=== PATIENT | female | born 1930 | race Caucasian/White ===

== ENCOUNTER 2016-06-16 21:17 | Emergency (ER) | payer MEDICARE, MEDICAID ==
--- NOTE | 2016-06-16 22:54 | ER Document Report ---
ED Medical Screen (RME) - General Chief Complaint: Urinary Problem Stated Complaint: URINARY ISSUE Notes: 6-year-old female comes emergency department with 2 complaints, first complaint is decreased ability to urinate, patient seen by primary but unable to give urine sample, prescribed Macrobid but not able to fill or take it. Patient reports some chills today. Denies fever, vomiting. Second complaint is increased dyspnea on exertion, slightly worse than her baseline, patient has COPD, on 4 L. She denies any chest pain, cough, lightheadedness, abdominal pain. TRAVEL OUTSIDE OF THE [place] IN LAST 30 DAYS: No - Related Data Allergies/Adverse Reactions: levofloxacin [From Levaquin] Allergy (Intermediate, Verified 07/31/15 10:53) ITCHING, MUSCLE PAIN Past Medical History - Social History Chew tobacco use (# tins/day): No Frequency of alcohol use: None Drug Abuse: None - Past Medical History Cardiac Medical History: Denies: Hx Coronary Artery Disease, Hx Heart Attack, Hx Hypertension Pulmonary Medical History: Reports: Hx COPD Denies: Hx Asthma, Hx Bronchitis, Hx Pneumonia Neurological Medical History: Denies: Hx Cerebrovascular Accident, Hx Seizures Renal/ Medical History: Denies: Hx Peritoneal Dialysis Musculoskeltal Medical History: Reports Hx Arthritis Psychiatric Medical History: Reports: Hx Depression Past Surgical History: Reports: Hx Orthopedic Surgery - bilateral rotator cuff, Hx Tubal Ligation - Immunizations Hx Diphtheria, Pertussis, Tetanus Vaccination: Yes Physical Exam - Vital signs Vitals: Temp Pulse Resp BP Pulse Ox 98.7 F 98 20 105/67 94 06/16/16 22:35 06/16/16 22:35 06/16/16 22:35 06/16/16 22:35 06/16/16 22:35 - Respiratory Respiratory status: No respiratory distress. No: Respiratory distress, Tachypnea Breath sounds: Decreased air movement. No: Nonproductive cough, Rhonchi, Wheezing Course - Re-evaluation Re-evalutation: Patient appears slightly unwell but is in no distress, no labored breathing, no hypoxia (95% on recheck). - Vital Signs Vital signs: Temp Pulse Resp BP Pulse Ox 98.7 F 98 20 105/67 94 06/16/16 22:35 06/16/16 22:35 06/16/16 22:35 06/16/16 22:35 06/16/16 22:35
--- NOTE | 2016-06-17 02:27 | ER Document Report ---
ED General - General Chief Complaint: Urinary Problem Stated Complaint: URINARY ISSUE Notes: 86-year-old female comes to the emergency department with 2 complaints, first complaint is decreased ability to urinate, patient seen by primary but unable to give urine sample, prescribed Macrobid but not able to fill or take it. Patient reports some chills today. Denies fever, vomiting. Second complaint is increased dyspnea on exertion over the last few days, slightly worse than her baseline, patient has COPD, on 4 L. patient was started on Bactrim one week ago. Patient sees pulmonology. She denies any chest pain, cough, lightheadedness, abdominal pain. Past medical history of COPD, CAD, hypertension. TRAVEL OUTSIDE OF THE [place] IN LAST 30 DAYS: No - Related Data Allergies/Adverse Reactions: levofloxacin [From Levaquin] Allergy (Intermediate, Verified 06/17/16 04:53) ITCHING, MUSCLE PAIN Past Medical History - General Information source: Patient - Social History Smoking Status: Current Every Day Smoker Chew tobacco use (# tins/day): No Frequency of alcohol use: None Drug Abuse: None Lives with: Family Family History: Reviewed & Not Pertinent Patient has suicidal ideation: No Patient has homicidal ideation: No - Past Medical History Cardiac Medical History: Denies: Hx Coronary Artery Disease, Hx Heart Attack, Hx Hypertension Pulmonary Medical History: Reports: Hx COPD Denies: Hx Asthma, Hx Bronchitis, Hx Pneumonia Neurological Medical History: Denies: Hx Cerebrovascular Accident, Hx Seizures Renal/ Medical History: Denies: Hx Peritoneal Dialysis Musculoskeltal Medical History: Reports Hx Arthritis Psychiatric Medical History: Reports: Hx Depression Past Surgical History: Reports: Hx Orthopedic Surgery - bilateral rotator cuff, Hx Tubal Ligation - Immunizations Hx Diphtheria, Pertussis, Tetanus Vaccination: Yes Hx Pneumococcal Vaccination: 04/19/08 Review of Systems - Review of Systems Constitutional: No symptoms reported EENT: No symptoms reported Cardiovascular: See HPI Respiratory: See HPI Gastrointestinal: See HPI Genitourinary: See HPI Female Genitourinary: No symptoms reported Musculoskeletal: No symptoms reported Skin: No symptoms reported Hematologic/Lymphatic: No symptoms reported Neurological/Psychological: No symptoms reported Physical Exam - Vital signs Vitals: Temp Pulse Resp BP Pulse Ox 98.7 F 98 20 105/67 94 06/16/16 22:35 06/16/16 22:35 06/16/16 22:35 06/16/16 22:35 06/16/16 22:35 Interpretation: Normal - General General appearance: Appears well, Alert In distress: None - HEENT Head: Normocephalic, Atraumatic Eyes: Normal Pupils: PERRL - Respiratory Respiratory status: No respiratory distress, Tachypnea - Patient has very mild tachypnea at baseline Chest status: Nontender Breath sounds: Decreased air movement. No: Nonproductive cough, Wheezing Chest palpation: Normal - Cardiovascular Rhythm: Regular. No: Tachycardia Heart sounds: Normal auscultation, S1 appreciated, S2 appreciated Murmur: Yes - 04/24 systolic heard throughout - Abdominal Inspection: Normal Distension: No distension Bowel sounds: Normal Tenderness: Nontender. No: Tender, Guarding Organomegaly: No organomegaly - Back Back: Normal, Nontender. No: Tender - Extremities General upper extremity: Normal inspection, Nontender, Normal color, Normal ROM , Normal temperature General lower extremity: Normal inspection, Nontender, Normal color, Normal ROM , Normal temperature, Normal weight bearing. 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 Relative states she has not noticed any increased difficulty in breathing. Chest x-ray shows mild bronchitis, no other abnormalities. This is new compared to patient's prior. Patient not noted to be hypoxic. Patient was able to urinate, urinalysis is unremarkable, patient is on Bactrim already. Discussed increased difficulty urinating over the past couple of days , patient declines a Garcia catheter, patient states she has a urologist and states she wants to follow-up with him. Daughter agrees with this plan. Patient also has a grubber, because of mild bronchitis and respiratory complaints will increase her 10 mg daily baseline prednisone temporarily in a quick trend, advised patient to call her grubber this morning to confirm before she begins this. Patient states she is ready to leave otherwise, states she feels good and she wants to go home. Daughter is in agreement with this plan. Discussed return precautions. - Vital Signs Vital signs: Temp Pulse Resp BP Pulse Ox 98.3 F 81 18 112/58 L 99 06/17/16 04:45 06/17/16 04:45 06/17/16 04:45 06/17/16 04:45 06/17/16 04:45 - Laboratory Result Diagrams: 06/17/16 02:37 06/17/16 02:37 Laboratory results interpreted by me: 06/17/16 06/17/16 02:37 02:37 WBC 12.5 H RDW 14.4 H Carbon Dioxide 31 H Est GFR (Non-Af Amer) 50 L Glucose 137 H Discharge - Discharge Clinical Impression: Urinary symptom or sign, Bronchitis Chronic obstructive pulmonary disease Qualifiers: COPD type: unspecified COPD Qualified Code(s): J44.9 - Chronic obstructive pulmonary disease, unspecified Condition: Stable Disposition: HOME, SELF-CARE Additional Instructions: Urine does not show infection, kidney functioning is unremarkable, workup generally unremarkable other than mild bronchitis on chest x-ray. Increase prednisone as directed on the prescription, please contact your grubber to confirm this. In regards to urinary retention, please call your urologist for additional management, return to emergency department if you cannot urinate for an extended period (i.e. greater than 8-12 hours). Return to the emergency department for any other concerning symptoms including fever, abdominal pain, worsening shortness of breath, etc. Prescriptions: Prednisone [Deltasone 10 mg Tablet] 10 mg PO ASDIR PRN #21 tablet PRN Reason:
[2016-06-17 02:51] LABS: ABSOLUTE EOSINOPHILS # (AUTO) 0.4 10^3/uL (0.0-0.6); ABSOLUTE LYMPHOCYTES (AUTO) 2.9 10^3/uL (0.5-4.7); ABSOLUTE MONOCYTES (AUTO) 1.3 10^3/uL (0.1-1.4); ABSOLUTE NEUT (AUTO) 7.9 10^3/uL (1.7-8.2); BASOPHILS % (AUTO) 0.3 % (0-2); EOSINOPHILS % (AUTO) 3.1 % (0-6); HEMATOCRIT 38.6 % (36.0-47.0); HEMOGLOBIN 12.7 g/dL (12.0-15.5); HGB HCT DIFFERENCE -0.5; LYMPHOCYTES % (AUTO) 23.3 % (13-45); MEAN CORPUSCULAR HEMOGLOBIN 28.3 pg (27.0-33.4); MEAN CORPUSCULAR HGB CONC 32.9 g/dL (32.0-36.0); MEAN CORPUSCULAR VOLUME 86 fl (80-97); MONOCYTES % (AUTO) 10.3 % (3-13); RED BLOOD COUNT 4.48 10^6/uL (3.72-5.28); RED CELL DISTRIBUTION WIDTH 14.4 % (11.5-14.0); WHITE BLOOD COUNT 12.5 10^3/uL (4.0-10.5)
[2016-06-17 03:02] LABS: ALANINE AMINOTRANSFERASE 27 U/L (9-52); ALBUMIN 3.5 g/dL (3.5-5.0); ALKALINE PHOSPHATASE 86 U/L (38-126); ANION GAP 8 (5-19); ASPARTATE AMINO TRANSFERASE 34 U/L (14-36); BILIRUBIN,TOTAL 0.2 mg/dL (0.2-1.3); BLOOD UREA NITROGEN 19 mg/dL (7-20); CALCIUM 9.7 mg/dL (8.4-10.2); CARBON DIOXIDE 31 mmol/L (22-30); CHLORIDE 101 mmol/L (98-107); CREATINE KINASE 68 U/L (30-135); CREATININE RESULT 1.04 mg/dL (0.52-1.25); GLUCOSE 137 mg/dL (75-110); POTASSIUM 4.5 mmol/L (3.6-5.0); SODIUM 139.8 mmol/L (137-145); TOTAL PROTEIN 6.5 g/dL (6.3-8.2)
[2016-06-17 03:14] LABS: CREATINE KINASE MB 2.56 ng/mL (<4.55); TROPONIN I 0.018 ng/mL
[2016-06-17 03:41] LABS: APPEARANCE,URINE SLIGHTLY-CLOUDY; BILIRUBIN,URINE NEGATIVE (NEGATIVE); CALCIUM OXALATE CRYSTALS,URINE TOO NUMEROUS TO CNT /HPF; GLUCOSE, URINE NEGATIVE (NEGATIVE); KETONES,URINE NEGATIVE (NEGATIVE); LEUKOCYTE ESTERASE,URINE NEGATIVE (NEGATIVE); NITRITE,URINE NEGATIVE (NEGATIVE); PROTEIN,URINE NEGATIVE (NEGATIVE); URINE SPECIFIC GRAVITY 1.013; UROBILINOGEN,URINE NEGATIVE mg/dL (<2.0)
[2016-06-17 04:55] VITALS: BP 112/58
--- NOTE | 2016-06-17 08:23 | EKG REPORT ---
SEVERITY:- ABNORMAL ECG - SINUS RHYTHM ATRIAL PREMATURE COMPLEX CONSIDER ANTEROSEPTAL INFARCT : Confirmed by: Philipp Xavier MD 17-Jun-2016 08:22:28
== END 2016-06-17 04:50 | disposition home or self-care (01) ==
LOC: ER 21:17
DX: R39.89 Other symptoms and signs involving the genitourinary system (principal); J44.9 Chronic obstructive pulmonary disease, unspecified; R68.83 Chills (without fever); R06.09 Other forms of dyspnea; R01.1 Cardiac murmur, unspecified; I25.10 Atherosclerotic heart disease of native coronary artery without angina pectoris; I10 Essential (primary) hypertension; I25.2 Old myocardial infarction; F17.200 Nicotine dependence, unspecified, uncomplicated; Z88.1 Allergy status to other antibiotic agents; Z79.52 Long term (current) use of systemic steroids
CPT/HCPCS: 36415; 71020; 80053; 81001; 82550; 82553; 84484; 85025; 87040; 87086; 93005; 93010; 99284

== ENCOUNTER → 2016-06-25 | Outpatient (CLI) | payer MEDICARE, MEDICAID | LOC: WI 08:16 | PROVIDERS: ATTEND Nurse Practitioner | DX: R10.9 Unspecified abdominal pain (principal); K76.0 Fatty (change of) liver, not elsewhere classified | CPT/HCPCS: 76700 ==

== ENCOUNTER → 2016-09-23 | Outpatient (CLI) | payer MEDICARE, MEDICAID ==
--- NOTE | 2016-09-23 13:32 | RADIOLOGY REPORT (SQ) ---
EXAM DESCRIPTION: CHEST PA/LATERAL COMPLETED DATE/TIME: 09/23/2016 1:22 pm REASON FOR STUDY: COUGH COMPARISON: 06/16/2016 EXAM PARAMETERS: NUMBER OF VIEWS: two views TECHNIQUE: Digital Frontal and Lateral radiographic views of the chest acquired. RADIATION DOSE: NA LIMITATIONS: none FINDINGS: LUNGS AND PLEURA: Is tissue markings are prominent but stable from prior study this most l ikely represents chronic interstitial lung disease no effusions or consolidation. MEDIASTINUM AND HILAR STRUCTURES: No masses or contour abnormalities. HEART AND VASCULAR STRUCTURES: Stable in appearance. BONES: No acute findings. HARDWARE: None in the chest. OTHER: No other significant finding. IMPRESSION: Chronic bilateral interstitial changes stable from prior exam. No acute findings. TECHNICAL DOCUMENTATION: JOB ID: [id number] [employer]- All Rights Reserved
== END ==
LOC: OD 12:48
PROVIDERS: ATTEND Nurse Practitioner
DX: R05 Cough (principal)
CPT/HCPCS: 71020

== ENCOUNTER → 2016-11-16 | Outpatient (CLI) | payer MEDICARE, MEDICAID ==
--- NOTE | 2016-11-18 08:18 | XCELERA REPORT ---
[address] [address] Lower Extremity Arterial Evaluation Name: SERGEY RIVERA Age: 86 yrs Gender: Female : 1930 Patient Status: Outpatient Patient Location: Study Date: 11/16/2016 01:27 PM Procedure: A color flow and duplex scan of the lower extremity arteries was performed bilaterally with velocity and waveform anaylsis. Reason For Study: PARESTHESIA R20.2 Ordering Physician: LOUIS VEGA Performed By: Garry Merrill Measurements and Calculations Right Left PERSONAL DEVELOPMENT MENTOR PSV 107.5 94.9 cm/sec Prox PFA PSV -93.6 -65.8 cm/sec Dist SFA PSV -132.8 -94.9 cm/sec Dist Pop A PSV 109.2 66.3 cm/sec Dist RADHA PSV 171.7 75.8 cm/sec Mid ROSIN BARREL FILLER PSV 34.0 cm/sec Dist ROSIN BARREL FILLER PSV 51.3 cm/sec Ruddy Pedis PSV 105.6 89.4 cm/sec Right Side Arterial Evaluation Normal velocity and triphasic waveforms noted from the Common Femoral artery to the Anterior Tibial artery . Biphasic with reduced velocity in the Posterior Tibial artery. 20-40 % stenosis at the Posterior Tibial artery. Ankle Brachial index is 0.94. . Left Side Arterial Evaluation Normal velocity and triphasic waveforms noted from the Common Femoral artery to the Anterior Tibial artery . Biphasic with reduced velocity in the Posterior Tibial artery. 20-40 % stenosis at the Posterior Tibial artery. Ankle Brachial index is 0.99. . Interpretation Summary Mild hemodynamically significant lesions in the bilateral lower extremities, on duplex imaging, at rest. : LOUIS VEGA > Petros Estrella
== END ==
LOC: SP 13:08
PROVIDERS: ATTEND Nurse Practitioner
DX: R20.2 Paresthesia of skin (principal)
CPT/HCPCS: 93925

== ENCOUNTER → 2016-11-23 | Outpatient (CLI) | payer MEDICARE, MEDICAID ==
--- NOTE | 2016-11-23 17:03 | RADIOLOGY REPORT (SQ) ---
EXAM DESCRIPTION: CHEST PA/LATERAL COMPLETED DATE/TIME: 11/23/2016 4:48 pm REASON FOR STUDY: COUGH COMPARISON: 09/23/2016 EXAM PARAMETERS: NUMBER OF VIEWS: two views TECHNIQUE: Digital Frontal and Lateral radiographic views of the chest acquired. RADIATION DOSE: NA LIMITATIONS: none FINDINGS: LUNGS AND PLEURA: Chronic interstitial lung changes are present. There is no superimposed infiltrate. There is no pleural effusion. No mass is seen there is no significant interval MEDIASTINUM AND HILAR STRUCTURES: No masses or contour abnormalities. HEART AND VASCULAR STRUCTURES: Heart normal size. No evidence for failure. BONES: No acute findings. HARDWARE: None in the chest. OTHER: No other significant finding. IMPRESSION: Chronic lung changes with no acute cardiopulmonary disease. TECHNICAL DOCUMENTATION: JOB ID: [id number] [employer]- All Rights Reserved
[2016-11-23 17:51] LABS: APPEARANCE,URINE CLOUDY; BILIRUBIN,URINE NEGATIVE (NEGATIVE); GLUCOSE, URINE 50 mg/dL (NEGATIVE); KETONES,URINE NEGATIVE (NEGATIVE); LEUKOCYTE ESTERASE,URINE TRACE (NEGATIVE); NITRITE,URINE NEGATIVE (NEGATIVE); PROTEIN,URINE NEGATIVE (NEGATIVE); URINE SPECIFIC GRAVITY 1.016; UROBILINOGEN,URINE NEGATIVE mg/dL (<2.0)
[2016-11-23 17:54] LABS: ABSOLUTE LYMPHOCYTES (AUTO) 0.8 10^3/uL (0.5-4.7); ABSOLUTE MONOCYTES (AUTO) 0.1 10^3/uL (0.1-1.4); ABSOLUTE NEUT (AUTO) 11.2 10^3/uL (1.7-8.2); BASOPHILS % (AUTO) 0.2 % (0-2); EOSINOPHILS % (AUTO) 0.1 % (0-6); HEMATOCRIT 39.5 % (36.0-47.0); HEMOGLOBIN 13.1 g/dL (12.0-15.5); HGB HCT DIFFERENCE -0.2; LYMPHOCYTES % (AUTO) 6.9 % (13-45); MEAN CORPUSCULAR HEMOGLOBIN 28.5 pg (27.0-33.4); MEAN CORPUSCULAR HGB CONC 33.1 g/dL (32.0-36.0); MEAN CORPUSCULAR VOLUME 86 fl (80-97); MONOCYTES % (AUTO) 0.8 % (3-13); RED BLOOD COUNT 4.59 10^6/uL (3.72-5.28); RED CELL DISTRIBUTION WIDTH 14.6 % (11.5-14.0); WHITE BLOOD COUNT 12.2 10^3/uL (4.0-10.5)
== END ==
LOC: OD 16:09
PROVIDERS: ATTEND Nurse Practitioner
DX: R05 Cough (principal); R32 Unspecified urinary incontinence
CPT/HCPCS: 36415; 71020; 81001; 85025; 87086

== ENCOUNTER 2016-12-29 11:01 | Inpatient (IN) | payer MEDICARE, MEDICAID ==
[2016-12-29] MEDS ORDERED: METHYLPREDNISOLONE INJ 125 MG/2 ML SDV IV ONE (11:38)
--- NOTE | 2016-12-29 11:46 | ER Document Report ---
ED Respiratory Problem - General Chief Complaint: Breathing Difficulty Stated Complaint: BREATHING ISSUES Time Seen by Provider: 12/29/16 11:37 Notes: Patient is an 86-year-old female with past medical history of bronchiectasis and COPD on 4 L nasal cannula is at baseline at home who presents today with the onset yesterday of some increased wheezing. Patient states some chronic nasal congestion. She states some intermittent phlegm production. Patient is on 10 mg of prednisone daily as well as tobramycin followed by the core shaper Dr. Childers. Patient states she had some chest "burning" 2 days ago but no discomfort since that time. She denies any calf pain or leg swelling. Patient supposedly had a positive Pseudomonas sputum culture around 1 week ago prior to starting the tobramycin. Patient had been on the tobramycin for around 1 month prior. TRAVEL OUTSIDE OF THE [place] IN LAST 30 DAYS: No - HPI Patient complains to provider of: COPD, Short of breath Onset: Other - See above Duration: Continuous Initiating Event: Other - See above Quality of pain: Other - See above Severity: Moderate Pain Level: Denies Context: Other - See above Short of Breath: Moderate Cough: Productive Sputum amount: Scant Sputum color: Yellow At home treatment: Bronchodilators, Oral steroids Associated symptoms: Other - See above Similar symptoms previously: Yes Recently seen / treated by doctor: Yes - Related Data Allergies/Adverse Reactions: levofloxacin [From Levaquin] Allergy (Intermediate, Verified 12/29/16 11:06) ITCHING, MUSCLE PAIN Past Medical History - General Information source: Patient - Social History Smoking Status: Unknown if Ever Smoked Cigarette use (# per day): No Chew tobacco use (# tins/day): No Smoking Education Provided: No Frequency of alcohol use: None Family History: Reviewed & Not Pertinent - Past Medical History Cardiac Medical History: Denies: Hx Coronary Artery Disease, Hx Heart Attack, Hx Hypertension Pulmonary Medical History: Reports: Hx COPD Denies: Hx Asthma, Hx Bronchitis, Hx Pneumonia Neurological Medical History: Denies: Hx Cerebrovascular Accident, Hx Seizures Renal/ Medical History: Denies: Hx Peritoneal Dialysis Musculoskeltal Medical History: Reports Hx Arthritis Psychiatric Medical History: Reports: Hx Depression Past Surgical History: Reports: Hx Orthopedic Surgery - bilateral rotator cuff, Hx Tubal Ligation - Immunizations Hx Diphtheria, Pertussis, Tetanus Vaccination: Yes Hx Pneumococcal Vaccination: 04/19/08 Review of Systems - Review of Systems Constitutional: denies: Fever EENT: Nose congestion, Nose discharge. denies: Eye discharge Cardiovascular: denies: Palpitations Respiratory: Short of breath, Wheezing. denies: Hemoptysis Gastrointestinal: denies: Vomiting Genitourinary: denies: Dysuria Musculoskeletal: denies: Leg swelling Skin: Other - no hives. denies: Rash Neurological/Psychological: Other - no slurred speech -: Yes All other systems reviewed and negative Physical Exam - Vital signs Vitals: Temp Pulse Resp BP Pulse Ox 97.8 F 102 H 26 H 150/74 H 89 L 12/29/16 11:04 12/29/16 11:04 12/29/16 11:04 12/29/16 11:04 12/29/16 11:04 Notes: Reviewed vital signs and nursing note as charted by RN. CONSTITUTIONAL: Alert and oriented and responds appropriately to questions. Well -appearing; well-nourished HEAD: Normocephalic; atraumatic EYES: PERRL ENT: Normal nose; no rhinorrhea; moist mucous membranes; pharynx without lesions noted NECK: Supple without meningismus; non-tender CARD: Regular rate and rhythm; no murmurs, no clicks, no rubs, no gallops; symmetric distal pulses RESP: Normal chest excursion; mild tachypnea; minimal end expiratory wheezing bilaterally without any obvious rales or rhonchi ABD/GI: Normal bowel sounds; non-distended; soft, non-tender BACK: The back appears normal and is non-tender to palpation EXT: Normal ROM in all joints; non-tender to palpation; no cyanosis, no effusions, no edema SKIN: Normal color for age and race; warm; dry; good turgor; capillary refill < 2 seconds; no acute lesions noted NEURO: Moves all extremities equally; Motor and sensory function intact PSYCH: The patient's mood and manner are appropriate. Grooming and personal hygiene are appropriate. Course - Re-evaluation Re-evalutation: 12/29/16 11:53 Given the history and physical examination I will order cardiac panel, EKG, BNP , and reassess the patient. Patient is speaking complete sentences. She does have some mild end expiratory wheezing. I will provide a dose of Solu-Medrol intravenously as well as provide to lola jacome and reassess the patient. 12/29/16 12:42 Wheezing slightly improved. Patient still denies any chest pain. BNP and troponin as recorded. X-ray of the chest show some COPD like changes with no obvious focal consolidation. Given the positive Pseudomonas sputum culture, I will treat the patient with Levaquin and cefepime as an initial dose here in the emergency department. Patient states some mild itching secondary to Levaquin. She states she can tolerate this medication with Benadryl. Patient will be admitted to the hospitalist for further evaluation and treatment. - Vital Signs Vital signs: Temp Pulse Resp BP Pulse Ox 97.8 F 102 H 25 H 120/73 98 12/29/16 11:04 12/29/16 11:04 12/29/16 12:01 12/29/16 12:01 12/29/16 12:01 - Laboratory Result Diagrams: 12/29/16 11:25 12/29/16 11:25 Laboratory results interpreted by me: 12/29/16 12/29/16 11:25 11:25 WBC 10.6 H RDW 15.0 H Carbon Dioxide 31 H Glucose 257 H Discharge - Discharge Clinical Impression: Shortness of breath, Wheezing Condition: Fair Disposition: ADMITTED INPATIENT Admitting Provider: Hospitalist Unit Admitted: [facility]
[2016-12-29 11:55] LABS: ABSOLUTE EOSINOPHILS # (AUTO) 0.2 10^3/uL (0.0-0.6); ABSOLUTE LYMPHOCYTES (AUTO) 1.6 10^3/uL (0.5-4.7); ABSOLUTE MONOCYTES (AUTO) 1.1 10^3/uL (0.1-1.4); ABSOLUTE NEUT (AUTO) 7.7 10^3/uL (1.7-8.2); BASOPHILS % (AUTO) 0.4 % (0-2); EOSINOPHILS % (AUTO) 1.9 % (0-6); HEMOGLOBIN 13.2 g/dL (12.0-15.5); HGB HCT DIFFERENCE -0.4; LYMPHOCYTES % (AUTO) 14.9 % (13-45); MEAN CORPUSCULAR HEMOGLOBIN 29.1 pg (27.0-33.4); MEAN CORPUSCULAR HGB CONC 33.1 g/dL (32.0-36.0); MEAN CORPUSCULAR VOLUME 88 fl (80-97); MONOCYTES % (AUTO) 10.3 % (3-13); RED BLOOD COUNT 4.56 10^6/uL (3.72-5.28); SEGMENTED NEUTROPHILS % (AUTO) 72.5 % (42-78); WHITE BLOOD COUNT 10.6 10^3/uL (4.0-10.5)
[2016-12-29] MEDS: IPRATROPIUM/ALBUTEROL 0.5-2.5 MG/3 ML AMPUL NEB SCH ×4 (11:58→21:13)
[2016-12-29 12:07] LABS: ANION GAP 12 (5-19); BLOOD UREA NITROGEN 12 mg/dL (7-20); CARBON DIOXIDE 31 mmol/L (22-30); CHLORIDE 98 mmol/L (98-107); CREATININE RESULT 0.78 mg/dL (0.52-1.25); GLUCOSE 257 mg/dL (75-110); POTASSIUM 4.5 mmol/L (3.6-5.0); SODIUM 140.5 mmol/L (137-145)
[2016-12-29 12:19] LABS: TROPONIN I 0.023 ng/mL
[2016-12-29] MEDS ORDERED: CEFEPIME 2 GM/D5W RTU 2 GM/50 ML RTUPB IV ONE (12:41)
[2016-12-29] MEDS ORDERED: LEVOFLOXACIN 750 MG/D5W RTU 750 MG/150 ML RTUPB IV ONE (12:41)
[2016-12-29] MEDS ORDERED: DIPHENHYDRAMINE HCL 25 MG CAPSULE PO ONE (12:42)
--- NOTE | 2016-12-29 13:07 | RADIOLOGY REPORT (SQ) ---
EXAM DESCRIPTION: CHEST PA/LAT COMPLETED DATE/TIME: 12/29/2016 11:55 am REASON FOR STUDY: 16, wheezing with sob COMPARISON: CT chest 08/28/2015 Chest films 09/25/2013, 08/26/2015, 02/17/2016, 06/16/2016 EXAM PARAMETERS: NUMBER OF VIEWS: two views TECHNIQUE: Digital Frontal and Lateral radiographic views of the chest acquired. RADIATION DOSE: NA LIMITATIONS: none FINDINGS: LUNGS AND PLEURA: Lungs are hyperinflated and hyperlucent from obstructive disease. There is bilateral bronchiectasis, with reticulonodular chronic infiltrates bilaterally. Findings are wor risome for ANABEL or chronic fungal disease. No dense consolidation worrisome for acute pneumonia. No pleural effusions. No pneumothorax. MEDIASTINUM AND HILAR STRUCTURES: No masses or contour abnormalities. HEART AND VASCULAR STRUCTURES: Heart normal size. No evidence for failure. BONES: No acute findings. HARDWARE: None in the chest. OTHER: No other significant finding. IMPRESSION: Obstructive lung disease. Chronic bronchiectasis and reticulonodular infiltrates worrisome for ANABEL or fungal disease TECHNICAL DOCUMENTATION: JOB ID: [id number]- All Rights Reserved
[2016-12-29] MEDS ORDERED: NORMAL SALINE 1000 ML 1,000 ML IV PRN (13:41)
[2016-12-29] MEDS ORDERED: ACETAMINOPHEN 325 MG TABLET PO PRN (13:41)
[2016-12-29] MEDS ORDERED: GUAIFENESIN SYRP 200 MG/10 ML UDC PO PRN (13:41)
[2016-12-29] MEDS ORDERED: LEVALBUTEROL HCL NEB 1.25 MG/3 ML AMPUL NEB PRN (13:41)
[2016-12-29] MEDS ORDERED: PHARMACY COMMUNICATION ORDER MC NR (14:00)
[2016-12-29] MEDS ORDERED: ENOXAPARIN SODIUM INJ 40 MG/0.4 ML DISP.SYRIN SUBCUT ONE (15:00)
[2016-12-29] MEDS: METHYLPREDNISOLONE INJ 125 MG/2 ML SDV IV SCH ×2 (18:15→23:11)
[2016-12-29] MEDS ORDERED: TOBRAMYCIN SULFATE INJ 80 MG/2 ML VIAL NEB SCH (20:00)
--- NOTE | 2016-12-29 20:53 | HISTORY AND PHYSICAL E ---
History and Physical NAME: SERGEY RIVERA : 1930 AGE: 86Y ADMITTED: 12/29/2016 ROOM: 326 PRIMARY CARE PHYSICIAN: Nneka Posada LABOR RELATIONS OFFICER: Moreno Childers M.D. CHIEF COMPLAINT: Shortness of breath. HISTORY OF PRESENT ILLNESS: The patient is an 86-year-old female with a known history of O2 dependent COPD with a long history of bronchiectasis and recurrent pseudomonal infections who recently was stopped on inhaled tobramycin. She reports since that time she has had an increase in cough and shortness of breath and began having wheezing beginning last night. She reports that her saturation will often be in the low 80s even on oxygen. She does report increased dyspnea on exertion but denies any swelling. She reports purulent yellow-green sputum but denies any overt fever or chills. The patient presents to the emergency department with increased shortness of breath and is referred to the hospitalist service for [id number]-[id number] hypoxemic respiratory failure and likely Pseudomonal pneumonia. PAST MEDICAL HISTORY: 1. COPD. 2. Bronchiectasis. 3. Depression. PAST SURGICAL HISTORY: 1. Rotator cuff surgery times 2. 2. Bilateral tubal ligation. SOCIAL HISTORY: The patient does not smoke. She drinks maybe twice yearly and does not use illicit drugs. She lives with her daughter. FAMILY HISTORY: Significant for alcohol abuse, old age, diabetes mellitus in her mother and sister and dementia. ALLERGIES: LEVAQUIN which causes a facial rash and muscle pain. HOME MEDICATIONS: 1. Inhaled tobramycin. 2. Singulair. 3. Breo. 4. Dexilant. 5. Spiriva. 6. Effexor. CODE STATUS: DNR. Her daughter, Lissy Laguerre, is her surrogate decision maker. REVIEW OF SYSTEMS: CONSTITUTIONAL: The patient denies fever or chills, weight loss, weight gain, anorexia. HEENT: Denies visual disturbance, headache, hearing loss. RESPIRATORY: Admits to dyspnea and cough, denies hemoptysis and pleurisy. CARDIAC: Denies chest pain, PND, orthopnea or edema. ABDOMEN: Denies abdominal pain, nausea, vomiting, diarrhea, constipation, hematemesis, melena or hematochezia. GENITOURINARY: Denies dysuria, urgency, frequency or hematuria. SKIN: Denies rash or wounds. MUSCULOSKELETAL: Denies joint pain or swelling. NEUROLOGIC: Denies weakness, numbness, dizziness, dysphasia, dysarthria or ataxia. ENDOCRINE: Denies polydipsia, polyuria, hot or cold intolerance. PSYCHIATRIC: Denies depression, anxiety, hallucinations or delusions. HEMATOLOGIC: Admits to easy bleeding and bruising. PHYSICAL EXAMINATION: VITAL SIGNS: Temperature is 97.8. Pulse of 102. Blood pressure of 150/74. Respiratory rate of 26. Saturation of 89% on 4 L nasal cannula. GENERAL: The patient is a chronically ill-appearing elderly female who is in moderate respiratory distress. HEENT: She is normocephalic. She has no icterus. Her conjunctivae are clear. Her extraocular eye movements are intact. Her pupils are equal, round, and reactive to light and accommodation. Her mucous membranes is slightly dry. NECK: Supple. There is no thyromegaly and no lymphadenopathy. Trachea midline. RESPIRATORY: Reveals wheezes and rhonchi bilaterally. CARDIOVASCULAR: Regular rate and rhythm without appreciable rub or gallop. ABDOMEN: Protuberant but soft, nontender to palpation, nondistended with active bowel sounds. She has a negative Bartholomew sign. RECTAL: Deferred. GENITOURINARY: Deferred. EXTREMITIES: Reveal no edema. She has no cyanosis. She has mild clubbing. MUSCULOSKELETAL: Reveals no joint swelling or deformity. VASCULATURE: Reveals normal peripheral pulses. NEUROLOGIC: She is alert and oriented to person, place and time. Her speech is normal. Her cranial nerves are grossly intact. Strength is 5/5 in all extremities. Tactile sensation is present in all extremities. SKIN: Reveals no rashes, wounds or worrisome skin lesions. PSYCHIATRIC: Normal mood and affect. LABORATORY VALUES: White count of 10.6, hemoglobin 13.2, hematocrit 40 and platelets of 207. Sodium 140, potassium 4.5, chloride 98, CO2 of 31, BUN of 12, creatinine 0.78, glucose of 257, troponin of 0.023. Pro-BNP of 101, calcium of 9. The patient's outpatient sputum culture reveals Pseudomonas which is pansensitive. Chest x-ray reveals obstructive lung disease with bronchiectasis and reticulonodular infiltrates worrisome for ANABEL or fungal disease. IMPRESSION: This is an 86-year-old female with: 1. Ojdsy-ip-sqoqyse hypoxemic respiratory failure secondary to COPD exacerbation. 2. COPD exacerbation. 3. Pseudomonal pneumonia. 4. GERD. 5. Depression. 6. Impaired fasting glucose. 7. SIRS criteria. 8. Acute COPD exacerbation and flare of bronchiectasis likely precipitated with underlying pseudomonas. PLAN: 1. Will place the patient on cefepime and inhaled tobramycin. The patient does report an allergy to Levaquin. Will place the patient on Solumedrol 125 IV q.6 h. and schedule nebulized treatments. 2. For her impaired fasting glucose, we will obtain a hemoglobin A1c. 3. For patient's unusual presentation of her pneumonic process, we will also obtain fungal as well as AFB cultures with concern for MAC or fungal infection given the insidious onset of this. 4. For her code status, she is a DNR. Total time spent with the patient including physical examination, coordination of care and discussion with patient and family was 45 minutes of time. DICTATING PHYSICIAN: CAROL REYES M.D. [id number] PHY#: [id number] ID: [id number] JOB#: [id number] ACCT: [id number] cc:CAROL REYES M.D., [facility]
[2016-12-29] MEDS: TOBRAMYCIN SULFATE NEB 40 MG/ML 30 ML NEB SCH (21:14)
[2016-12-29] MEDS: GUAIFENESIN 600 MG TABLET.SA PO SCH (22:07)
[2016-12-29] MEDS: FAMOTIDINE 20 MG TABLET PO SCH (22:08)
[2016-12-30 05:04] LABS: HEMATOCRIT 38.7 % (36.0-47.0); HEMOGLOBIN 12.5 g/dL (12.0-15.5); HGB HCT DIFFERENCE -1.2; MEAN CORPUSCULAR HEMOGLOBIN 28.4 pg (27.0-33.4); MEAN CORPUSCULAR HGB CONC 32.4 g/dL (32.0-36.0); MEAN CORPUSCULAR VOLUME 88 fl (80-97); RED BLOOD COUNT 4.41 10^6/uL (3.72-5.28); RED CELL DISTRIBUTION WIDTH 14.8 % (11.5-14.0); WHITE BLOOD COUNT 13.9 10^3/uL (4.0-10.5)
[2016-12-30] MEDS: METHYLPREDNISOLONE INJ 125 MG/2 ML SDV IV SCH ×3 (05:12→21:45)
[2016-12-30 05:18] LABS: ALANINE AMINOTRANSFERASE 31 U/L (9-52); ALBUMIN 3.7 g/dL (3.5-5.0); ALKALINE PHOSPHATASE 87 U/L (38-126); ANION GAP 11 (5-19); ASPARTATE AMINO TRANSFERASE 27 U/L (14-36); BILIRUBIN,DIRECT 0.3 mg/dL (0.0-0.4); BILIRUBIN,TOTAL 0.4 mg/dL (0.2-1.3); BLOOD UREA NITROGEN 16 mg/dL (7-20); CALCIUM 9.6 mg/dL (8.4-10.2); CARBON DIOXIDE 29 mmol/L (22-30); CHLORIDE 99 mmol/L (98-107); CREATININE RESULT 0.75 mg/dL (0.52-1.25); GLUCOSE 268 mg/dL (75-110); POTASSIUM 4.4 mmol/L (3.6-5.0); SODIUM 138.8 mmol/L (137-145); TOTAL PROTEIN 6.7 g/dL (6.3-8.2)
[2016-12-30] MEDS: IPRATROPIUM/ALBUTEROL 0.5-2.5 MG/3 ML AMPUL NEB SCH ×4 (08:48→20:11)
[2016-12-30] MEDS: TOBRAMYCIN SULFATE NEB 40 MG/ML 30 ML NEB SCH ×2 (08:49→20:11)
[2016-12-30] MEDS ORDERED: (PENDING PHARMACY ID) (Dexlansoprazole [Dexilant 30 Mg Capsule] 30 MG) PO SCH (10:00)
[2016-12-30] MEDS ORDERED: (PENDING PHARMACY ID) (Fluticasone/Vilanterol [Breo Ellipta 100-25 Mcg Inh] 1 PUFF) IH SCH (10:00)
[2016-12-30] MEDS ORDERED: LEVOFLOXACIN 750 MG/D5W RTU 150 ML IV SCH (10:00)
--- NOTE | 2016-12-30 11:05 | RADIOLOGY REPORT (SQ) ---
EXAM DESCRIPTION: PICC INSERTION; FLUORO/CV PLACEMENT; U/S GUIDE FOR VASCULAR ACCESS COMPLETED DATE/TIME: 12/30/2016 10:54 am REASON FOR STUDY: need for iv abx; IV ACCESS COMPARISON: Two-view chest 12/29/2016 FLUOROSCOPY TIME: 11 seconds 1 ultrasound and 1 digital chest images saved to PACS. TECHNIQUE: Fluoroscopic and ultrasound guided PICC placement. LIMITATIONS: None. PROCEDURE: After written consent and assessment were obtained, the patient was brought into the fluo roscopy room and place supine on the table. Ultrasound was used on the patient's left arm for PICC a ccess. The left arm was prepped and draped in a sterile fashion along with the ultrasound probe. The entry site was anesthetized with 1% lidocaine. A 21 gauge 7 cm needle was advanced through the skin a nd into the basilic vein under live ultrasound guidance. An ultrasound image was saved to PACS confi rming access site. A .018 guide wire was then inserted through the needle and into the venous system . The needle was the removed and an 11 blade scalpel was used to make a 1cm skin incision. A 5 fr pe el-away sheath was advanced over the wire and into the venous system. A measurement was then made usi ng the existing wire and live fluoroscopic guidance. The wire was then removed and the trimmed. The P ICC was advanced through the peel-away sheath and into the venous system. The peel-away sheath was re moved and the catheter was adhered to the patients arm with a stat lock. The catheter was then aspira kunal and flushed and a sterile bandage was placed over the access site. A fluoroscopic spot image was saved to PACS confirming the catheter tip within the superior vena cava. IMPRESSION: SUCCESSFUL PLACEMENT OF A 5 FR DUAL LUMEN 44 CM PICC IN THE LEFT BASILIC VEIN. COMMENT: Patient medication list reviewed: Yes- Quality ID# [id number]:Eligible professional attests to doc umenting in the medical record they obtained, updated, or reviewed the patient's current medications. . Quality ID 145: Final reports for procedures using fluoroscopy that document radiation exposure simone morgan, or exposure time and number of fluorographic images (if radiation exposure indices are not avail able) Quality ID #[id number]: The patient was prepped and draped using maximum sterile barrier technique including cap, mask, sterile gown, sterile gloves, a large sterile sheet, hand hygiene, and 2% Chlorhexidine fo r cutaneous antisepsis. When ultrasound is used, sterile ultrasound techniques are followed requiring sterile gel and sterile probes. TECHNICAL DOCUMENTATION: JOB ID: [id number] [employer]- All Rights Reserved
[2016-12-30] MEDS ORDERED: HALOPERIDOL 5 MG TABLET PO PRN (11:23)
[2016-12-30] MEDS ORDERED: HALOPERIDOL LACTATE INJ 5 MG/1 ML VIAL IV PRN (11:23)
[2016-12-30] MEDS: ENOXAPARIN SODIUM INJ 40 MG/0.4 ML DISP.SYRIN SUBCUT SCH (11:27)
[2016-12-30] MEDS: GUAIFENESIN 600 MG TABLET.SA PO SCH ×2 (11:32→21:46)
[2016-12-30] MEDS: VENLAFAXINE HCL 75 MG CAP.SR.24H PO SCH (11:32)
[2016-12-30] MEDS: LANSOPRAZOLE 15 MG TAB.RAP.DR PO SCH (11:32)
[2016-12-30] MEDS: FAMOTIDINE 20 MG TABLET PO SCH ×2 (11:32→21:46)
[2016-12-30] MEDS ORDERED: HALOPERIDOL LACTATE INJ 5 MG/1 ML VIAL ONE (11:34)
[2016-12-30] MEDS ORDERED: LORAZEPAM INJ 2 MG/1 ML VIAL IV ONE (12:30)
[2016-12-30] MEDS: CEFEPIME 2 GM/D5W RTU 2 GM/50 ML RTUPB IV SCH (12:43)
--- NOTE | 2016-12-30 13:16 | Physician Advisory Note ---
Physician Advisor ProgressNote .: Pursuant to the plan for [facility], I have reviewed the medical record for this patient. Physician Advisor Statement: Nice documentation of Pseudomonal PNA, Ac on chr hypoxemic Resp Failure - pt usually on 4L O2 at home, initial O2 sat here 89% on 5L O2, with increased SOB & LANE, tachypnea, tachycardia, "moderate resp distress" in ED. Please document: 1. "ruled out for sepsis" - and avoid documenting dx of "(+) SIRS criteria". "SIRS criteria" is not a dx. It is a finding that increases the chances of that patient potentially having sepsis clinically. Stating "(+)SIRS criteria" is like waving a flag to coders saying "Please send me more queries! I like them!" (And it automatically leads to headaches for coders, queries for doctors, delays in coding & billing, and worsened "accounts receivable" days for hospital HIM.) If the pt meets SIRS criteria in the setting of infxn - & tachycardia/tachypnea alone are not sufficient - then the attending must state whether or not they think: a. the patient was clinically septic due to __, at time of admission, or b. developed "sepsis due to ___" later in hospital course, or c. sepsis was considered but ruled out or felt to be unlikely. These days, even stating "sepsis, POA, due to __" outright needs explicit documentation of findings used to support the dx, as payers are looking for excuses to deny sepsis was present. Defense is the best offense! Be explicit about what you think!! Thanks! CK
[2016-12-30] MEDS ORDERED: METHYLPREDNISOLONE INJ 125 MG/2 ML SDV IV SCH (14:00)
[2016-12-30] MEDS ORDERED: NORMAL SALINE 10 ML SDV (AFTER EACH USE) IV PRN (14:41)
--- NOTE | 2016-12-30 17:51 | PDOC PROGRESS REPORT ---
Subjective Progress Note for:: 12/30/16 Subjective:: Patient is quite anxious today. She apparently had quite a bit of anxiety and confusion overnight. Patient does not recall me from yesterday. She reports her breathing is better. Daughter is present at bedside. Patient denies chest pain, abdominal pain, nausea, vomiting, fevers, chills, diarrhea, constipation, headache, new onset weakness. Physical Exam Vital Signs: Temp Pulse Resp BP Pulse Ox 98.5 F 93 19 137/75 H 96 12/30/16 07:11 12/30/16 07:11 12/30/16 07:11 12/30/16 07:11 12/30/16 07:11 Intake & Output 12/29/16 12/30/16 12/31/16 06:59 06:59 06:59 Intake Total 2150 Balance 2150 Weight 82.1 kg Exam: General: Awake alert and oriented x1, mild respiratory distress HEENT: AT/NC, PERRL, EOMI, oropharynx is moist, pink, no scleral icterus, no conjunctival injection Neck: No JVD, trachea midline Chest: Pursed lip breathing, mild retractions, tachypnea, clear to auscultation bilaterally, no wheezes rhonchi or rales; prolonged expiratory phase CV: Regular rate and rhythm, normal S1 and S2, no rub or gallop Abdomen: Soft, nontender to palpation, nondistended, active bowel sounds; no rebound, rigidity, or guarding Extremities: No cyanosis, +clubbing, no edema Neuro: Cranial nerves II through XII are grossly intact without focal deficits; awake alert and oriented x1 Psych: Anxious with increased psychomotor agitation Results Laboratory Results: 12/30/16 04:49 12/30/16 04:49 12/30/16 12/30/16 04:49 04:49 WBC 13.9 H RBC 4.41 Hgb 12.5 Hct 38.7 MCV 88 MCH 28.4 MCHC 32.4 RDW 14.8 H Plt Count 195 Sodium 138.8 Potassium 4.4 Chloride 99 Carbon Dioxide 29 Anion Gap 11 BUN 16 Creatinine 0.75 Est GFR ( Amer) > 60 Est GFR (Non-Af Amer) > 60 Glucose 268 H Calcium 9.6 Total Bilirubin 0.4 AST 27 ALT 31 Alkaline Phosphatase 87 Total Protein 6.7 Albumin 3.7 Impressions: Chest X-Ray 12/29/16 11:37 IMPRESSION: Obstructive lung disease. Chronic bronchiectasis and reticulonodular infiltrates worrisome for ANABEL or fungal disease Assessment & Plan - Diagnosis (1) Sepsis Qualifiers: Sepsis type: Pseudomonas Qualified Code(s): A41.52 - Sepsis due to Pseudomonas Is this a current diagnosis for this admission?: Yes Plan: Present on admission secondary to pseudomonal pneumonia. Criteria met with tachypnea, hypoxia, and known infection. Currently, patient is encephalopathic. (2) Pseudomonal pneumonia Qualifiers: Laterality: unspecified laterality Lung location: unspecified part of lung Qualified Code(s): J15.1 - Pneumonia due to Pseudomonas Is this a current diagnosis for this admission?: Yes Plan: Patient has outpatient culture that is positive for Pseudomonas. Have placed PICC line and plan to give patient 14 days of cefepime. Patient is allergic to Levaquin. Continue inhaled tobramycin. Scheduled nebulized treatments. (3) Acute on chronic respiratory failure with hypoxemia Is this a current diagnosis for this admission?: Yes Plan: Continue oxygen and wean as tolerated (4) Prediabetes Is this a current diagnosis for this admission?: Yes Plan: Hemoglobin A1c of 7.5. Likely secondary to corticosteroid usage. Acceptable for patient of this age. (5) GERD (gastroesophageal reflux disease) Qualifiers: Esophagitis presence: esophagitis presence not specified Qualified Code(s) : K21.9 - Gastro-esophageal reflux disease without esophagitis Is this a current diagnosis for this admission?: Yes Plan: Continue PPI (6) Steroid-induced psychosis Is this a current diagnosis for this admission?: Yes Plan: Give patient IV and oral Haldol. And a one-time dose of Ativan. (7) COPD exacerbation Is this a current diagnosis for this admission?: Yes Plan: Decrease Solu-Medrol and continue scheduled nebulized treatments - Time Time Spent with patient: 35 or more minutes Medications reviewed and adjusted accordingly: Yes Anticipated discharge: Home with Homehealth Within: Other - Upon improvement of patient's symptomatology - Inpatient Certification Based on my medical assessment, after consideration of the patient's comorbidities, presenting symptoms, or acuity I expect that the services needed warrant INPATIENT care.: Yes I certify that my determination is in accordance with my understanding of Medicare's requirements for reasonable and necessary INPATIENT services [42 CFR 412.3e].: Yes Medical Necessity: Need For Continuous Telemetry Monitoring, Need for Nebulizer Therapy and Monitoring of Response, Need for IV Antibiotics Post Hospital Care: D/C [facility] Documentation
[2016-12-30] MEDS: MONTELUKAST SODIUM 10 MG TABLET PO SCH (18:41)
[2016-12-30] MEDS: LACTOBACILLUS ACIDOPHILUS 250 MG TAB PO SCH (18:41)
[2016-12-30] MEDS: NORMAL SALINE 10 ML SDV (SCHEDULED) IV SCH (21:48)
[2016-12-31 06:37] LABS: HEMATOCRIT 37.5 % (36.0-47.0); HEMOGLOBIN 12.6 g/dL (12.0-15.5); HGB HCT DIFFERENCE 0.3; MEAN CORPUSCULAR HEMOGLOBIN 28.8 pg (27.0-33.4); MEAN CORPUSCULAR HGB CONC 33.6 g/dL (32.0-36.0); MEAN CORPUSCULAR VOLUME 86 fl (80-97); RED BLOOD COUNT 4.38 10^6/uL (3.72-5.28); RED CELL DISTRIBUTION WIDTH 14.9 % (11.5-14.0); WHITE BLOOD COUNT 20.6 10^3/uL (4.0-10.5)
[2016-12-31 06:46] LABS: ALANINE AMINOTRANSFERASE 45 U/L (9-52); ALBUMIN 3.5 g/dL (3.5-5.0); ALKALINE PHOSPHATASE 75 U/L (38-126); ANION GAP 11 (5-19); ASPARTATE AMINO TRANSFERASE 87 U/L (14-36); BILIRUBIN,DIRECT 0.2 mg/dL (0.0-0.4); BILIRUBIN,TOTAL 0.4 mg/dL (0.2-1.3); BLOOD UREA NITROGEN 20 mg/dL (7-20); CALCIUM 8.9 mg/dL (8.4-10.2); CARBON DIOXIDE 29 mmol/L (22-30); CHLORIDE 98 mmol/L (98-107); CREATININE RESULT 0.78 mg/dL (0.52-1.25); GLUCOSE 245 mg/dL (75-110); POTASSIUM 4.7 mmol/L (3.6-5.0); SODIUM 138.1 mmol/L (137-145); TOTAL PROTEIN 6.4 g/dL (6.3-8.2)
[2016-12-31] MEDS: METHYLPREDNISOLONE INJ 125 MG/2 ML SDV IV SCH (07:08)
[2016-12-31] MEDS: IPRATROPIUM/ALBUTEROL 0.5-2.5 MG/3 ML AMPUL NEB SCH ×4 (08:43→20:20)
[2016-12-31] MEDS: TOBRAMYCIN SULFATE NEB 40 MG/ML 30 ML NEB SCH ×2 (08:44→20:21)
[2016-12-31] MEDS: FAMOTIDINE 20 MG TABLET PO SCH ×2 (10:19→21:20)
[2016-12-31] MEDS: GUAIFENESIN 600 MG TABLET.SA PO SCH ×2 (10:19→21:20)
[2016-12-31] MEDS: ENOXAPARIN SODIUM INJ 40 MG/0.4 ML DISP.SYRIN SUBCUT SCH (10:20)
[2016-12-31] MEDS: VENLAFAXINE HCL 75 MG CAP.SR.24H PO SCH (10:20)
[2016-12-31] MEDS: NORMAL SALINE 10 ML SDV (SCHEDULED) IV SCH ×2 (10:20→21:21)
[2016-12-31] MEDS: LANSOPRAZOLE 15 MG TAB.RAP.DR PO SCH (10:20)
[2016-12-31] MEDS: LACTOBACILLUS ACIDOPHILUS 250 MG TAB PO SCH ×2 (10:20→17:33)
[2016-12-31] MEDS: CEFEPIME 2 GM/D5W RTU 2 GM/50 ML RTUPB IV SCH (12:55)
[2016-12-31] MEDS: PREDNISONE 20 MG TABLET PO SCH (17:32)
[2016-12-31] MEDS: MONTELUKAST SODIUM 10 MG TABLET PO SCH (17:33)
--- NOTE | 2016-12-31 18:05 | PDOC PROGRESS REPORT ---
Subjective Progress Note for:: 12/31/16 Subjective:: Patient seen earlier today on morning rounds. Reports that she slept very well last night for the first time in a long time. Patient's confusion has resolved. Patient reports her shortness of breath is improved and she reports she is barely coughing. Patient denies abdominal pain, nausea, vomiting, fevers, chills, diarrhea, constipation, headache, new onset weakness. Physical Exam Vital Signs: Temp Pulse Resp BP Pulse Ox 99.3 F 109 H 19 158/87 H 96 12/31/16 15:38 12/31/16 15:38 12/31/16 15:38 12/31/16 15:38 12/31/16 15:38 Intake & Output 12/30/16 12/31/16 01/01/17 06:59 06:59 06:59 Intake Total 2150 500 323 Balance 2150 500 323 Weight 82.1 kg 82.6 kg Exam: General: Awake alert and oriented x3, mild respiratory distress HEENT: AT/NC, PERRL, EOMI, oropharynx is moist, pink, no scleral icterus, no conjunctival injection Neck: No JVD, trachea midline Chest: tachypnea, clear to auscultation bilaterally, no wheezes rhonchi or rales ; prolonged expiratory phase CV: Regular rate and rhythm, normal S1 and S2, no rub or gallop Abdomen: Soft, nontender to palpation, nondistended, active bowel sounds; no rebound, rigidity, or guarding Extremities: No cyanosis, +clubbing, trace edema Neuro: Cranial nerves II through XII are grossly intact without focal deficits; awake alert and oriented x3 Psych: Normal mood and affect Results Laboratory Results: 12/31/16 06:29 12/31/16 06:29 12/31/16 12/31/16 06:29 06:29 WBC 20.6 H RBC 4.38 Hgb 12.6 Hct 37.5 MCV 86 MCH 28.8 MCHC 33.6 RDW 14.9 H Plt Count 201 Sodium 138.1 Potassium 4.7 Chloride 98 Carbon Dioxide 29 Anion Gap 11 BUN 20 Creatinine 0.78 Est GFR ( Amer) > 60 Est GFR (Non-Af Amer) > 60 Glucose 245 H Calcium 8.9 Total Bilirubin 0.4 AST 87 H ALT 45 Alkaline Phosphatase 75 Total Protein 6.4 Albumin 3.5 Impressions: Chest X-Ray 12/29/16 11:37 IMPRESSION: Obstructive lung disease. Chronic bronchiectasis and reticulonodular infiltrates worrisome for ANABEL or fungal disease Guidance Fluoroscopy 12/30/16 00:00 IMPRESSION: SUCCESSFUL PLACEMENT OF A 5 FR DUAL LUMEN 44 CM PICC IN THE LEFT BASILIC VEIN. Interventional Vascular Procedure 12/30/16 00:00 IMPRESSION: SUCCESSFUL PLACEMENT OF A 5 FR DUAL LUMEN 44 CM PICC IN THE LEFT BASILIC VEIN. PICC Line Insertion 12/30/16 00:00 IMPRESSION: SUCCESSFUL PLACEMENT OF A 5 FR DUAL LUMEN 44 CM PICC IN THE LEFT BASILIC VEIN. Assessment & Plan - Diagnosis (1) Sepsis Qualifiers: Sepsis type: Pseudomonas Qualified Code(s): A41.52 - Sepsis due to Pseudomonas Is this a current diagnosis for this admission?: Yes Plan: Present on admission secondary to pseudomonal pneumonia. Criteria met with tachypnea, hypoxia, and known infection. Continue cefepime (2) Pseudomonal pneumonia Qualifiers: Laterality: unspecified laterality Lung location: unspecified part of lung Qualified Code(s): J15.1 - Pneumonia due to Pseudomonas Is this a current diagnosis for this admission?: Yes Plan: Patient has outpatient culture that is positive for Pseudomonas. Patient is allergic to Levaquin. Continue inhaled tobramycin. Scheduled nebulized treatments. Current sputum cultures growing gram-negative rods. Continue cefepime. (3) Acute on chronic respiratory failure with hypoxemia Is this a current diagnosis for this admission?: Yes Plan: Continue oxygen and wean as tolerated (4) Prediabetes Is this a current diagnosis for this admission?: Yes Plan: Hemoglobin A1c of 7.5. Likely secondary to corticosteroid usage. Acceptable for patient of this age. (5) GERD (gastroesophageal reflux disease) Qualifiers: Esophagitis presence: esophagitis presence not specified Qualified Code(s) : K21.9 - Gastro-esophageal reflux disease without esophagitis Is this a current diagnosis for this admission?: Yes Plan: Continue PPI (6) Steroid-induced psychosis Is this a current diagnosis for this admission?: Yes Plan: Patient is back to baseline. Patient has requested Haldol for home. I feel this is acceptable for this patient. (7) COPD exacerbation Is this a current diagnosis for this admission?: Yes Plan: Transition to oral prednisone - Time Time Spent with patient: 25-34 minutes Anticipated discharge: Home with Homehealth Within: within 24 hours, within 48 hours
[2017-01-01 04:35] LABS: HEMATOCRIT 36.7 % (36.0-47.0); HEMOGLOBIN 12.1 g/dL (12.0-15.5); HGB HCT DIFFERENCE -0.4; MEAN CORPUSCULAR HEMOGLOBIN 28.5 pg (27.0-33.4); MEAN CORPUSCULAR VOLUME 86 fl (80-97); RED BLOOD COUNT 4.25 10^6/uL (3.72-5.28); RED CELL DISTRIBUTION WIDTH 14.7 % (11.5-14.0); WHITE BLOOD COUNT 16.5 10^3/uL (4.0-10.5)
[2017-01-01 04:50] LABS: ALANINE AMINOTRANSFERASE 53 U/L (9-52); ALBUMIN 3.3 g/dL (3.5-5.0); ALKALINE PHOSPHATASE 77 U/L (38-126); ANION GAP 8 (5-19); ASPARTATE AMINO TRANSFERASE 59 U/L (14-36); BILIRUBIN,DIRECT 0.3 mg/dL (0.0-0.4); BILIRUBIN,TOTAL 0.3 mg/dL (0.2-1.3); BLOOD UREA NITROGEN 16 mg/dL (7-20); CARBON DIOXIDE 33 mmol/L (22-30); CHLORIDE 98 mmol/L (98-107); CREATININE RESULT 0.74 mg/dL (0.52-1.25); GLUCOSE 234 mg/dL (75-110)
[2017-01-01] MEDS ORDERED: LANSOPRAZOLE 15 MG TAB.RAP.DR PO SCH (06:00)
[2017-01-01] MEDS: TOBRAMYCIN SULFATE NEB 40 MG/ML 30 ML NEB SCH (08:03)
[2017-01-01] MEDS: IPRATROPIUM/ALBUTEROL 0.5-2.5 MG/3 ML AMPUL NEB SCH ×3 (08:03→16:54)
[2017-01-01] MEDS ORDERED: FUROSEMIDE INJ/PF 20 MG/2 ML SDV IV ONE (08:30)
[2017-01-01] MEDS ORDERED: FUROSEMIDE 20 MG TABLET PO SCH (10:00)
[2017-01-01] MEDS: VENLAFAXINE HCL 75 MG CAP.SR.24H PO SCH (10:33)
[2017-01-01] MEDS: LACTOBACILLUS ACIDOPHILUS 250 MG TAB PO SCH ×2 (10:34→17:40)
[2017-01-01] MEDS: FAMOTIDINE 20 MG TABLET PO SCH (10:35)
[2017-01-01] MEDS: PREDNISONE 20 MG TABLET PO SCH ×2 (10:36→17:37)
[2017-01-01] MEDS: GUAIFENESIN 600 MG TABLET.SA PO SCH (10:36)
[2017-01-01] MEDS: ENOXAPARIN SODIUM INJ 40 MG/0.4 ML DISP.SYRIN SUBCUT SCH (10:37)
[2017-01-01] MEDS: NORMAL SALINE 10 ML SDV (SCHEDULED) IV SCH (12:50)
[2017-01-01] MEDS: CEFEPIME 2 GM/D5W RTU 2 GM/50 ML RTUPB IV SCH (12:51)
--- NOTE | 2017-01-01 13:07 | PDOC TRANSFER SUMMARY ---
General - Admit/Disc Date/PCP Admission Date/Primary Care Provider: 12/29/16 13:41 [facility] Discharge Date: 01/01/17 - Discharge Diagnosis (1) Sepsis Is this a current diagnosis for this admission?: Yes (2) COPD exacerbation Is this a current diagnosis for this admission?: Yes (3) Pseudomonal pneumonia Is this a current diagnosis for this admission?: Yes (4) Acute on chronic respiratory failure with hypoxemia Is this a current diagnosis for this admission?: Yes (5) Prediabetes Is this a current diagnosis for this admission?: Yes (6) GERD (gastroesophageal reflux disease) Is this a current diagnosis for this admission?: Yes (7) Steroid-induced psychosis Is this a current diagnosis for this admission?: Yes - Additional Information Resuscitation Status: Full Code Discharge Diet: Regular Discharge Activity: Activity As Tolerated, Balance Activity w/Rest, Supervised Activity Home Medications: Dexlansoprazole [Dexilant 30 mg Capsule] 30 mg PO DAILY 12/29/16 Fluticasone/Vilanterol [Breo Ellipta 100-25 Mcg INH] 1 puff IH DAILY 12/29/16 Montelukast Sodium [Singulair 10 mg Tablet] 10 mg PO QPM 12/29/16 Tiotropium [place] [Spiriva Handihaler 5 Cap/Kit (18 Mcg/Cap)] 1 puff IH DAILY 12/29/16 Tobramycin in 0.225% Sod Chlor [Tobramycin 300 mg/5 ml Ampule] 5 ml NEB Q12 04/04 Venlafaxine HCl ER [Effexor Xr 75 mg Cap.sr] 75 mg PO DAILY 12/29/16 Furosemide [Lasix 20 mg Tablet] 10 mg PO DAILY #30 tablet 01/01/17 Guaifenesin [Mucinex Sr 600 mg Tablet.sa] 600 mg PO Q12 #20 tablet.sa 01/01/17 Haloperidol [Haldol 5 mg Tablet] 5 mg PO QHS #30 tablet 01/01/17 Prednisone [Deltasone 20 mg Tablet] 40 mg PO BID #30 tablet 01/01/17 History of Present Illness Admission Date/PCP: 12/29/16 13:41 [facility] [place] History of Present Illness: See H+P for full HPI Hospital Course Hospital Course: Patient was admitted and started on high-dose steroids for her COPD exacerbation and cefepime because patient had an outpatient sputum culture that revealed pansensitive Pseudomonas for which she was treated with inhaled tobramycin without improvement. Patient has an allergy to Levaquin. PICC line was placed. The evening of admission, patient suffered from some steroid psychosis which improved with the administration of Haldol and decreasing her IV steroids. Patient was transitioned to oral steroids. Patient will require 2 weeks of IV cefepime and 1 month of inhaled tobramycin. Patient is stable for transfer to rehab. Physical Exam Vital Signs: Temp Pulse Resp BP Pulse Ox 98.3 F 97 18 132/69 H 96 01/01/17 11:04 01/01/17 12:15 01/01/17 12:15 01/01/17 11:04 01/01/17 12:15 Intake & Output 12/31/16 01/01/17 01/02/17 06:59 06:59 06:59 Intake Total 500 653 240 Output Total 0 Balance 500 653 240 Weight 82.6 kg 82.1 kg Exam: General: Awake alert and oriented x3, mild respiratory distress HEENT: AT/NC, PERRL, EOMI, oropharynx is moist, pink, no scleral icterus, no conjunctival injection Neck: No JVD, trachea midline Chest: tachypnea, clear to auscultation bilaterally, no wheezes rhonchi or rales ; prolonged expiratory phase CV: Regular rate and rhythm, normal S1 and S2, no rub or gallop; 3/6 SM RUSB, 2/ 6 apex SM Abdomen: Soft, nontender to palpation, nondistended, active bowel sounds; no rebound, rigidity, or guarding Extremities: No cyanosis, +clubbing, 1+ edema Neuro: Cranial nerves II through XII are grossly intact without focal deficits; awake alert and oriented x3 Psych: Normal mood and affect Results Laboratory Results: 01/01/17 04:10 01/01/17 04:10 01/01/17 01/01/17 04:10 04:10 WBC 16.5 H RBC 4.25 Hgb 12.1 Hct 36.7 MCV 86 MCH 28.5 MCHC 33.0 RDW 14.7 H Plt Count 184 Sodium 139.0 Potassium 4.0 Chloride 98 Carbon Dioxide 33 H Anion Gap 8 BUN 16 Creatinine 0.74 Est GFR ( Amer) > 60 Est GFR (Non-Af Amer) > 60 Glucose 234 H Calcium 9.0 Total Bilirubin 0.3 AST 59 H ALT 53 H Alkaline Phosphatase 77 Total Protein 6.0 L Albumin 3.3 L 12/30/16 07:40 Sputum Gram Stain - Final Impressions: Chest X-Ray 12/29/16 11:37 IMPRESSION: Obstructive lung disease. Chronic bronchiectasis and reticulonodular infiltrates worrisome for ANABEL or fungal disease Guidance Fluoroscopy 12/30/16 00:00 IMPRESSION: SUCCESSFUL PLACEMENT OF A 5 FR DUAL LUMEN 44 CM PICC IN THE LEFT BASILIC VEIN. Interventional Vascular Procedure 12/30/16 00:00 IMPRESSION: SUCCESSFUL PLACEMENT OF A 5 FR DUAL LUMEN 44 CM PICC IN THE LEFT BASILIC VEIN. PICC Line Insertion 12/30/16 00:00 IMPRESSION: SUCCESSFUL PLACEMENT OF A 5 FR DUAL LUMEN 44 CM PICC IN THE LEFT BASILIC VEIN. Transfer Plan - Time Spent with Patient Time spent with patient: Less than 30 Minutes Qualifiers PATEINT BEING DISCHARGED WITH ANY OF THE FOLLOWING DIAGNOSIS?: No Plan Time Spent: Less than 30 Minutes
--- NOTE | 2017-01-01 15:22 | Progress Note ---
Provider Note Provider Note: Addendum to transfer summary dated 01/01/2017. She may use her home tobramycin and family may bring in more after this current supply is gone. Prescription will be provided and pulmonary medicine can help with prior authorization.
[2017-01-01 16:21] VITALS: BP 148/75
[2017-01-01] MEDS: MONTELUKAST SODIUM 10 MG TABLET PO SCH (17:40)
== END 2017-01-01 18:50 | DRG 871 ==
LOC: ER 11:01 → UNDOADMIN 12:53 → EH 12:53 → 3S 16:22
PROVIDERS: ADMIT Internal Medicine; ATTEND Internal Medicine
PROC: 02HV33Z Insertion of Infusion Device into Superior Vena Cava, Percutaneous Approach (ICD-10-PCS; principal; 2016-12-30)
PROC: B5181ZA Fluoroscopy of Superior Vena Cava using Low Osmolar Contrast, Guidance (ICD-10-PCS; 2016-12-30)
PROC: B548ZZA Ultrasonography of Superior Vena Cava, Guidance (ICD-10-PCS; 2016-12-30)
DX: A41.9 Sepsis, unspecified organism (principal); J15.1 Pneumonia due to Pseudomonas; J96.21 Acute and chronic respiratory failure with hypoxia; J44.0 Chronic obstructive pulmonary disease with (acute) lower respiratory infection; J44.1 Chronic obstructive pulmonary disease with (acute) exacerbation; R73.03 Prediabetes; K21.9 Gastro-esophageal reflux disease without esophagitis; F19.959 Other psychoactive substance use, unspecified with psychoactive substance-induced psychotic disorder, unspecified; Z66 Do not resuscitate; Z79.899 Other long term (current) drug therapy; Z88.1 Allergy status to other antibiotic agents
CPT/HCPCS: 36415; 36569; 71020; 76937; 77001; 80048; 80053; 83036; 83880; 84484; 85025; 85027; 87015; 87070; 87077; 87101; 87116; 87186; 87205; 87206; 94640; 94667; 94668; 94799; 96374; 99285; J0692; J1630; J1642; J1650; J1940; J1956; J2060; J2930; J3490; J7030; J7512; J7620; J7685

== ENCOUNTER 2017-01-03 11:17 | Inpatient (IN) | payer MEDICARE, MEDICAID ==
--- NOTE | 2017-01-03 11:33 | ER Document Report ---
ED Medical Screen (RME) - General Chief Complaint: Breathing Difficulty Stated Complaint: BREATHING PROBLEMS TRAVEL OUTSIDE OF THE [place] IN LAST 30 DAYS: No - HPI Notes: 01/03/17 11:33 Increased work of breathing and tachycardia recent discharge from hospital - Related Data Allergies/Adverse Reactions: levofloxacin [From Levaquin] Allergy (Intermediate, Verified 12/29/16 11:06) ITCHING, MUSCLE PAIN Past Medical History - Past Medical History Cardiac Medical History: Denies: Hx Coronary Artery Disease, Hx Heart Attack, Hx Hypertension Pulmonary Medical History: Reports: Hx COPD Denies: Hx Asthma, Hx Bronchitis, Hx Pneumonia Neurological Medical History: Denies: Hx Cerebrovascular Accident, Hx Seizures Renal/ Medical History: Denies: Hx Peritoneal Dialysis Musculoskeltal Medical History: Reports Hx Arthritis Psychiatric Medical History: Reports: Hx Depression Past Surgical History: Reports: Hx Orthopedic Surgery - bilateral rotator cuff, Hx Tubal Ligation - Immunizations Hx Diphtheria, Pertussis, Tetanus Vaccination: Yes Physical Exam - Vital signs Vitals: Temp Pulse Resp BP Pulse Ox 99 F 110 H 22 H 145/57 H 92 01/03/17 11:21 01/03/17 11:21 01/03/17 11:21 01/03/17 11:21 01/03/17 11:21 - Respiratory Chest status: Nontender Breath sounds: Decreased air movement Course - Vital Signs Vital signs: Temp Pulse Resp BP Pulse Ox 99 F 110 H 22 H 145/57 H 92 01/03/17 11:21 01/03/17 11:21 01/03/17 11:21 01/03/17 11:21 01/03/17 11:21
[2017-01-03 12:05] LABS: ABSOLUTE EOSINOPHILS # (AUTO) 0.1 10^3/uL (0.0-0.6); ABSOLUTE LYMPHOCYTES (AUTO) 1.2 10^3/uL (0.5-4.7); ABSOLUTE MONOCYTES (AUTO) 2.1 10^3/uL (0.1-1.4); ABSOLUTE NEUT (AUTO) 16.3 10^3/uL (1.7-8.2); BASOPHILS % (AUTO) 0.1 % (0-2); EOSINOPHILS % (AUTO) 0.4 % (0-6); HEMATOCRIT 41.1 % (36.0-47.0); HEMOGLOBIN 13.7 g/dL (12.0-15.5); LYMPHOCYTES % (AUTO) 6.1 % (13-45); MEAN CORPUSCULAR HEMOGLOBIN 28.7 pg (27.0-33.4); MEAN CORPUSCULAR HGB CONC 33.2 g/dL (32.0-36.0); MEAN CORPUSCULAR VOLUME 87 fl (80-97); MONOCYTES % (AUTO) 10.5 % (3-13); RED BLOOD COUNT 4.75 10^6/uL (3.72-5.28); SEGMENTED NEUTROPHILS % (AUTO) 82.9 % (42-78); VENOUS BLOOD BASE EXCESS 6.2 mmol/L; VENOUS BLOOD HCO3 32.5 mmol/L (20-32); VENOUS BLOOD PCO2 53.4 mmHg (35-63); VENOUS BLOOD PH 7.4 (7.30-7.42); WHITE BLOOD COUNT 19.6 10^3/uL (4.0-10.5)
[2017-01-03 12:14] LABS: PROTHROMBIN TIME 13.3 SEC (11.4-15.4)
[2017-01-03 12:15] LABS: PARTIAL THROMBOPLASTIN TIME 29.2 SEC (23.5-35.8)
[2017-01-03 12:20] LABS: ALANINE AMINOTRANSFERASE 50 U/L (9-52); ALBUMIN 3.6 g/dL (3.5-5.0); ALKALINE PHOSPHATASE 87 U/L (38-126); ANION GAP 10 (5-19); ASPARTATE AMINO TRANSFERASE 26 U/L (14-36); BILIRUBIN,DIRECT 0.3 mg/dL (0.0-0.4); BILIRUBIN,TOTAL 0.8 mg/dL (0.2-1.3); BLOOD UREA NITROGEN 12 mg/dL (7-20); CALCIUM 9.1 mg/dL (8.4-10.2); CARBON DIOXIDE 36 mmol/L (22-30); CHLORIDE 90 mmol/L (98-107); CREATINE KINASE 72 U/L (30-135); CREATININE RESULT 0.75 mg/dL (0.52-1.25); GLUCOSE 284 mg/dL (75-110); POTASSIUM 3.6 mmol/L (3.6-5.0); SODIUM 135.7 mmol/L (137-145); TOTAL PROTEIN 6.6 g/dL (6.3-8.2)
[2017-01-03 12:44] LABS: CREATINE KINASE MB 2.48 ng/mL (<4.55)
--- NOTE | 2017-01-03 12:50 | RADIOLOGY REPORT (SQ) ---
EXAM DESCRIPTION: CHEST PA/LAT COMPLETED DATE/TIME: 01/03/2017 12:36 pm REASON FOR STUDY: sob COMPARISON: 12/29/2016. NUMBER OF VIEWS: Two view. TECHNIQUE: Frontal and lateral radiographic views of the chest acquired. LIMITATIONS: None. FINDINGS: LUNGS AND PLEURA: Chronic scarring with reticulonodular pattern. No focal infiltrates, ma sses or pneumothorax. No pleural effusion. Attenuated blood vessels and flattened nancy-diaphragms. MEDIASTINUM AND HILAR STRUCTURES: No masses. No contour abnormalities. HEART AND VASCULAR STRUCTURES: Heart normal in size and contour. No evidence for failure. BONES: No acute findings. HARDWARE: PICC line. OTHER: No other significant finding. IMPRESSION: COPD. CHRONIC INTERSTITIAL CHANGES. NO ACUTE FINDINGS. TECHNICAL DOCUMENTATION: JOB ID: [id number] [employer]- All Rights Reserved
[2017-01-03 12:51] LABS: TROPONIN I 0.034 ng/mL
[2017-01-03] MEDS ORDERED: FUROSEMIDE INJ/PF 20 MG/2 ML SDV IV ONE ×2 (13:52→19:00)
--- NOTE | 2017-01-03 17:19 | ER Document Report ---
ED Respiratory Problem - General Chief Complaint: Breathing Difficulty Stated Complaint: BREATHING PROBLEMS Time Seen by Provider: 01/03/17 11:35 Mode of Arrival: Medic Information source: Patient, Relative TRAVEL OUTSIDE OF THE [place] IN LAST 30 DAYS: No - HPI Patient complains to provider of: Short of breath Onset: Yesterday - LAST PM Duration: Continuous Initiating Event: Other - RECENT PNEUMONIA, D/C'd FROM [facility] 01/01 Quality of pain: No pain Severity: Moderate Context: Other - PSEUDOMONAS PNEUMONIA Short of Breath: Moderate Cough: Nonproductive At home treatment: Bronchodilators, Diuretics, Inhaled steroids, Oral steroids, Oxygen, Singulair Associated symptoms: Cough, Extertional dyspnea, Short of breath, Sweaty. denies: Chills, Fever Similar symptoms previously: Yes Recently seen / treated by doctor: Yes - Related Data Allergies/Adverse Reactions: levofloxacin [From Levaquin] Allergy (Intermediate, Verified 12/29/16 11:06) ITCHING, MUSCLE PAIN Past Medical History - General Information source: Patient, Relative - Social History Smoking Status: Former Smoker Cigarette use (# per day): No Chew tobacco use (# tins/day): No Frequency of alcohol use: None Drug Abuse: None Lives with: Family Family History: Reviewed & Not Pertinent Patient has suicidal ideation: No Patient has homicidal ideation: No - Past Medical History Cardiac Medical History: Denies: Hx Coronary Artery Disease, Hx Heart Attack, Hx Hypertension Pulmonary Medical History: Reports: Hx COPD Denies: Hx Asthma, Hx Bronchitis, Hx Pneumonia Neurological Medical History: Denies: Hx Cerebrovascular Accident, Hx Seizures Endocrine Medical History: Reports: None Renal/ Medical History: Reports: None. Denies: Hx Peritoneal Dialysis Malignancy Medical History: Reports: None GI Medical History: Reports: None Musculoskeltal Medical History: Reports Hx Arthritis Psychiatric Medical History: Reports: Hx Depression Past Surgical History: Reports: Hx Orthopedic Surgery - bilateral rotator cuff, Hx Tubal Ligation - Immunizations Hx Diphtheria, Pertussis, Tetanus Vaccination: Yes Hx Pneumococcal Vaccination: 04/19/08 Review of Systems - Review of Systems Constitutional: Diaphoresis EENT: No symptoms reported Cardiovascular: See HPI, Dyspnea Respiratory: See HPI Gastrointestinal: No symptoms reported Genitourinary: No symptoms reported Female Genitourinary: Post menopausal Musculoskeletal: No symptoms reported Skin: No symptoms reported Neurological/Psychological: No symptoms reported Physical Exam - Vital signs Vitals: Temp Pulse Resp BP Pulse Ox 99 F 110 H 22 H 145/57 H 92 01/03/17 11:21 01/03/17 11:21 01/03/17 11:21 01/03/17 11:21 01/03/17 11:21 Interpretation: Hypertensive, Tachycardic, Tachypneic. No: Hypoxic - ON CONTINUOUS O2 4L/MIN, Febrile - General General appearance: Alert, Anxious In distress: Mild - RESP - HEENT Head: Normocephalic Eyes: Normal Conjunctiva: Normal Ears: Normal Nasal: Normal Mouth/Lips: Normal Mucous membranes: Normal - Respiratory Respiratory status: Respiratory distress - MILD, Labored, Tachypnea Chest status: Nontender Breath sounds: Decreased air movement - RIGHT, Rales - BIBASILAR, Wheezing - END -EXPIRATORY, ALL GARCIA - Cardiovascular Rhythm: Regular Murmur: Yes Systolic murmur grade 1-6: 3 - R. STERNAL BORDER Friction rub: No Zenon's crunch: No - Abdominal Inspection: Normal Distension: No distension Bowel sounds: Hypoactive - Extremities General upper extremity: Normal inspection General lower extremity: Normal inspection. No: Edema - Neurological Neuro grossly intact: Yes Cognition: Normal Orientation: AAOx4 - Psychological Associated symptoms: Normal affect, Normal mood - Skin Skin Temperature: Warm Skin Moisture: Dry Skin Color: Normal Skin Turgor: Elastic Course - Re-evaluation Re-evalutation: 01/03/17 18:48 Late entry: Patient was assisted to bedside commode for urination and became quite dyspneic, despite continuous BiPAP and supplemental oxygen. Dr. Ardon was consulted to consider admission. - Vital Signs Vital signs: Temp Pulse Resp BP Pulse Ox 99 F 110 H 16 120/91 H 98 01/03/17 11:21 01/03/17 11:21 01/03/17 17:01 01/03/17 17:01 01/03/17 17:01 - Laboratory Result Diagrams: 01/03/17 11:44 01/03/17 11:44 Laboratory results interpreted by me: 01/03/17 01/03/17 01/03/17 11:44 11:44 11:44 WBC 19.6 H RDW 15.0 H Seg Neutrophils % 82.9 H Lymphocytes % 6.1 L Absolute Neutrophils 16.3 H Absolute Monocytes 2.1 H VBG HCO3 32.5 H Sodium 135.7 L Chloride 90 L Carbon Dioxide 36 H Glucose 284 H Lactic Acid 01/03/17 11:44 WBC RDW Seg Neutrophils % Lymphocytes % Absolute Neutrophils Absolute Monocytes VBG HCO3 Sodium Chloride Carbon Dioxide Glucose Lactic Acid 3.0 H - Diagnostic Test Radiology reviewed: Image reviewed, Reports reviewed - EKG Interpretation by Me EKG shows normal: Sinus rhythm Rate: Normal Rhythm: NSR - Consults DR. ARDON Reason for consultation: 01/03/17 18:47 AGREES TO ADMIT TO IMCU Consulted provider: will come to ER Discharge - Discharge Clinical Impression: Shortness of breath, COPD exacerbation, Atelectasis of both lungs Condition: Fair Disposition: ADMITTED INPATIENT Admitting Provider: Hospitalist Unit Admitted: CU
[2017-01-03] MEDS ORDERED: GUAIFENESIN SYRP 200 MG/10 ML UDC PO PRN (17:49)
[2017-01-03] MEDS ORDERED: ACETAMINOPHEN 325 MG TABLET PO PRN (17:49)
[2017-01-03] MEDS ORDERED: NITROGLYCERIN 0.4 MG/TAB 25 TAB/BOTTLE SL PRN (18:22)
--- NOTE | 2017-01-03 18:39 | PDOC H&P ---
History of Present Illness Admission Date/PCP: 01/03/17 17:53 LULU VEGAC History of Present Illness: SERGEY RIVERA is a 86 year old female who was recently admitted for COPD exacerbation and pseudomonal lower respiratory tract infection and was discharged to [facility]. After 24 hours there, patient left and went home. Patient began having increasing dyspnea and presented to the emergency department. Patient is found to be quite volume overloaded and has had improvement with BiPAP and Lasix. She is referred to hospital service for acute exacerbation of CHF. Past Medical History Cardiac Medical History: Denies: Coronary Artery Disease, Myocardial Infarction, Hypertension Pulmonary Medical History: Reports: Chronic Obstructive Pulmonary Disease (COPD) Denies: Asthma, Bronchitis, Pneumonia Neurological Medical History: Denies: Seizures Musculoskeltal Medical History: Reports: Arthritis Psychiatric Medical History: Reports: Depression Hematology: Denies: Anemia Past Surgical History Past Surgical History: Reports: Orthopedic Surgery - bilateral rotator cuff, Tubal Ligation Social History Smoking Status: Former Smoker Frequency of Alcohol Use: None Hx Recreational Drug Use: No Drugs: None Hx Prescription Drug Abuse: No - Advance Directive Resuscitation Status: Do Not Resuscitate Surrogate healthcare decision maker:: Daughter Family History Family History: CAD, Malignancy Parental Family History Reviewed: Yes Children Family History Reviewed: Yes Sibling(s) Family History Reviewed.: Yes Medication/Allergy Home Medications: Dexlansoprazole [Dexilant 30 mg Capsule] 30 mg PO DAILY 12/29/16 Fluticasone/Vilanterol [Breo Ellipta 100-25 Mcg INH] 1 puff IH DAILY 12/29/16 Montelukast Sodium [Singulair 10 mg Tablet] 10 mg PO QPM 12/29/16 Tiotropium [place] [Spiriva Handihaler 5 Cap/Kit (18 Mcg/Cap)] 1 puff IH DAILY 12/29/16 Tobramycin in 0.225% Sod Chlor [Tobramycin 300 mg/5 ml Ampule] 5 ml NEB Q12 04/04 Venlafaxine HCl ER [Effexor Xr 75 mg Cap.sr] 75 mg PO DAILY 12/29/16 Furosemide [Lasix 20 mg Tablet] 10 mg PO DAILY #30 tablet 01/01/17 Guaifenesin [Mucinex Sr 600 mg Tablet.sa] 600 mg PO Q12 #20 tablet.sa 01/01/17 Haloperidol [Haldol 5 mg Tablet] 5 mg PO QHS #30 tablet 01/01/17 Prednisone [Deltasone 20 mg Tablet] 40 mg PO BID #30 tablet 01/01/17 Tobramycin Sulfate [Tobramycin Neb 40 mg/ml 30 ml Vial] 300 mg NEB RTQ12 #28 ml 01/01/17 Allergies/Adverse Reactions: levofloxacin [From Levaquin] Allergy (Intermediate, Verified 12/29/16 11:06) ITCHING, MUSCLE PAIN Review of Systems Constitutional: PRESENT: fatigue, fever(s) - Low-grade. ABSENT: chills, headache(s), weight gain, weight loss Eyes: ABSENT: visual disturbances Ears: ABSENT: hearing changes Cardiovascular: PRESENT: dyspnea on exertion. ABSENT: chest pain, edema, orthropnea, palpitations Respiratory: PRESENT: cough, dyspnea, sputum. ABSENT: hemoptysis Gastrointestinal: ABSENT: abdominal pain, constipation, diarrhea, hematemesis, hematochezia, melena, nausea, vomiting Genitourinary: ABSENT: dysuria, hematuria Musculoskeletal: ABSENT: joint swelling Integumentary: ABSENT: rash, wounds Neurological: ABSENT: abnormal gait, abnormal speech, confusion, dizziness, focal weakness, syncope Psychiatric: ABSENT: anxiety, depression, homidical ideation, suicidal ideation Endocrine: ABSENT: cold intolerance, heat intolerance, polydipsia, polyuria Hematologic/Lymphatic: ABSENT: easy bleeding, easy bruising Physical Exam Vital Signs: Temp Pulse Resp BP Pulse Ox 99 F 110 H 16 120/91 H 98 01/03/17 11:21 01/03/17 11:21 01/03/17 17:01 01/03/17 17:01 01/03/17 17:01 Exam: General: Awake alert and oriented x3, moderate respiratory distress HEENT: AT/NC, PERRL, EOMI, oropharynx is moist, pink, no scleral icterus, no conjunctival injection Neck: + JVD, trachea midline, no lymphadenopathy Chest: tachypnea, clear to auscultation bilaterally, no wheezes rhonchi or rales ; prolonged expiratory phase CV: IRR, normal S1 and S2, no rub or gallop; 3/6 SM RUSB, 2/6 apex SM Abdomen: Soft, nontender to palpation, nondistended, active bowel sounds; no rebound, rigidity, or guarding : Deferred Rectal: deferred Musculoskeletal: No deformity noted, full range of motion Extremities: No cyanosis, +clubbing, 1+ edema Vascular: Normal bilateral radial and dorsalis pedis pulses Neuro: Cranial nerves II through XII are grossly intact without focal deficits; tactile sensation is equal in both extremities, strength is equal in bilateral upper and lower extremities, awake alert and oriented x3 Psych: Normal mood and affect Skin: Multiple ecchymoses on bilateral arms and legs Results Laboratory Results: 12/30/16 12/30/16 01/03/17 04:49 07:40 11:44 WBC 19.6 H Hgb 13.7 Hct 41.1 Plt Count 187 INR VBG pH VBG pCO2 VBG HCO3 Sodium Potassium Chloride Carbon Dioxide BUN Creatinine Glucose Hemoglobin A1c % 7.4 H Lactic Acid Calcium Total Bilirubin Direct Bilirubin AST ALT Alkaline Phosphatase Creatine Kinase CK-MB (CK-2) Troponin I NT-Pro-B Natriuret Pep Total Protein Albumin AFB Smear NO ACID FAST BACILLI 01/03/17 01/03/17 01/03/17 11:44 11:44 11:44 WBC Hgb Hct Plt Count INR 0.94 VBG pH VBG pCO2 VBG HCO3 Sodium 135.7 L Potassium 3.6 Chloride 90 L Carbon Dioxide 36 H BUN 12 Creatinine 0.75 Glucose 284 H Hemoglobin A1c % Lactic Acid Calcium 9.1 Total Bilirubin 0.8 Direct Bilirubin 0.3 AST 26 ALT 50 Alkaline Phosphatase 87 Creatine Kinase 72 CK-MB (CK-2) 2.48 Troponin I 0.034 NT-Pro-B Natriuret Pep 192 Total Protein 6.6 Albumin 3.6 AFB Smear 01/03/17 01/03/17 01/03/17 11:44 11:44 17:45 WBC Hgb Hct Plt Count INR VBG pH 7.40 VBG pCO2 53.4 VBG HCO3 32.5 H Sodium Potassium Chloride Carbon Dioxide BUN Creatinine Glucose Hemoglobin A1c % Lactic Acid 3.0 H 1.9 Calcium Total Bilirubin Direct Bilirubin AST ALT Alkaline Phosphatase Creatine Kinase CK-MB (CK-2) Troponin I NT-Pro-B Natriuret Pep Total Protein Albumin AFB Smear Impressions: Chest X-Ray 01/03/17 11:34 IMPRESSION: COPD. CHRONIC INTERSTITIAL CHANGES. NO ACUTE FINDINGS. Status: Imported from PACS Assessment & Plan - Diagnosis (1) Acute diastolic (congestive) heart failure Is this a current diagnosis for this admission?: Yes Plan: Place patient on telemetry and begin diuresing patient. Start on low-dose lisinopril and will hold on beta-natalie at this time secondary bronchospastic disease and acute phase of congestive heart failure. Order Echo. Started: Furosemide [Lasix Inj/Pf 20 mg/2 ml Sdv] 20 mg IV BID Aspirin [Ecotrin 325 mg EC Tablet] 325 mg PO DAILY Lisinopril [Prinivil 5 mg Tablet] 2.5 mg PO DAILY As needed nitroglycerin (2) Atelectasis of both lungs Is this a current diagnosis for this admission?: Yes Plan: BiPAP (3) COPD exacerbation Is this a current diagnosis for this admission?: Yes Plan: Place patient on Solu-Medrol 60 mg IV every 8 and stop prednisone, scheduled nebulous treatments Obtain ABG (4) Acute on chronic respiratory failure with hypoxemia Is this a current diagnosis for this admission?: Yes Plan: BiPAP as needed (5) GERD (gastroesophageal reflux disease) Qualifiers: Esophagitis presence: esophagitis presence not specified Qualified Code(s) : K21.9 - Gastro-esophageal reflux disease without esophagitis Is this a current diagnosis for this admission?: Yes Plan: PPI daily (6) Pseudomonal pneumonia Qualifiers: Laterality: unspecified laterality Lung location: unspecified part of lung Qualified Code(s): J15.1 - Pneumonia due to Pseudomonas Is this a current diagnosis for this admission?: Yes Plan: Continue cefepime and inhaled tobramycin (7) Sepsis Qualifiers: Sepsis type: Pseudomonas Qualified Code(s): A41.52 - Sepsis due to Pseudomonas Is this a current diagnosis for this admission?: No Plan: Sepsis criteria are met on this admission, but I feel this is secondary to her CHF exacerbation and ongoing steroid usage. - Time Time Spent: 30 to 50 Minutes Medications reviewed and adjusted accordingly: Yes Anticipated discharge: Home with Homehealth Within: Other - Upon improvement of symptomatology - Inpatient Certification Based on my medical assessment, after consideration of the patient's comorbidities, presenting symptoms, or acuity I expect that the services needed warrant INPATIENT care.: Yes I certify that my determination is in accordance with my understanding of Medicare's requirements for reasonable and necessary INPATIENT services [42 CFR 412.3e].: Yes Medical Necessity: Need For Continuous Telemetry Monitoring, Need for Nebulizer Therapy and Monitoring of Response, Need for IV Antibiotics 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
[2017-01-03] MEDS ORDERED: AZITHROMYCIN 500 MG in DEXTROSE 5%-WATER 250 ML IV ONE (19:00)
[2017-01-03 19:08] LABS: ARTERIAL BLOOD BASE EXCESS 9.7 mmol/L; ARTERIAL BLOOD O2 SATURATION 93.7 % (94-98)
[2017-01-03] MEDS: IPRATROPIUM/ALBUTEROL 0.5-2.5 MG/3 ML AMPUL NEB SCH (20:29)
[2017-01-03] MEDS: TOBRAMYCIN SULFATE NEB 40 MG/ML 30 ML NEB SCH (20:35)
[2017-01-03] MEDS ORDERED: FUROSEMIDE INJ/PF 20 MG/2 ML SDV ONE (23:14)
--- NOTE | 2017-01-03 23:29 | EKG REPORT ---
SEVERITY:- ABNORMAL ECG - SINUS TACHYCARDIA PROBABLE LEFT ATRIAL ABNORMALITY ANTERIOR INFARCT, AGE INDETERMINATE : Confirmed by: Moses Angelo 03-Jan-2017 23:27:36
[2017-01-03] MEDS: MONTELUKAST SODIUM 10 MG TABLET PO SCH (23:44)
[2017-01-03] MEDS: GUAIFENESIN 600 MG TABLET.SA PO SCH (23:45)
[2017-01-03] MEDS: HALOPERIDOL 5 MG TABLET PO SCH (23:45)
[2017-01-03] MEDS: FAMOTIDINE 20 MG TABLET PO SCH (23:46)
[2017-01-03] MEDS: METHYLPREDNISOLONE INJ 40 MG/1 ML SDV IV SCH (23:47)
[2017-01-03] MEDS: CEFEPIME 2 GM/D5W RTU 2 GM/50 ML RTUPB IV SCH (23:49)
[2017-01-04] MEDS: NORMAL SALINE 10 ML SDV (AFTER EACH USE) IV PRN ×2 (00:42→02:47)
[2017-01-04] MEDS ORDERED: AZITHROMYCIN INJ 500 MG VIAL IV ONE (01:15)
[2017-01-04 01:23] LABS: CREATINE KINASE MB 1.66 ng/mL (<4.55); TROPONIN I 0.045 ng/mL
[2017-01-04] MEDS: IPRATROPIUM/ALBUTEROL 0.5-2.5 MG/3 ML AMPUL NEB SCH ×4 (02:16→20:18)
[2017-01-04] MEDS: METHYLPREDNISOLONE INJ 40 MG/1 ML SDV IV SCH ×3 (06:45→21:49)
[2017-01-04 07:17] LABS: HEMATOCRIT 38.7 % (36.0-47.0); HEMOGLOBIN 12.9 g/dL (12.0-15.5); MEAN CORPUSCULAR HEMOGLOBIN 28.6 pg (27.0-33.4); MEAN CORPUSCULAR HGB CONC 33.5 g/dL (32.0-36.0); MEAN CORPUSCULAR VOLUME 85 fl (80-97); RED BLOOD COUNT 4.53 10^6/uL (3.72-5.28); RED CELL DISTRIBUTION WIDTH 14.7 % (11.5-14.0); WHITE BLOOD COUNT 13.4 10^3/uL (4.0-10.5)
[2017-01-04 07:24] LABS: BLOOD UREA NITROGEN 16 mg/dL (7-20); CALCIUM 8.6 mg/dL (8.4-10.2); CHLORIDE 90 mmol/L (98-107); CREATINE KINASE 44 U/L (30-135); CREATININE RESULT 0.72 mg/dL (0.52-1.25); GLUCOSE 307 mg/dL (75-110); MAGNESIUM 2.2 mg/dL (1.6-2.3); POTASSIUM 3.8 mmol/L (3.6-5.0); SODIUM 136.3 mmol/L (137-145)
[2017-01-04 07:31] LABS: ANION GAP 8 (5-19); CARBON DIOXIDE 38 mmol/L (22-30)
[2017-01-04 07:48] LABS: BAND NEUTROPHILS % (MANUAL) 3 % (3-5); BASOPHILS % (MANUAL) 0 % (0-2); EOSINOPHILS % (MANUAL) 0 % (0-6); LYMPHOCYTES % (MANUAL) 5 % (13-45); TOTAL CELLS COUNTED 100; TOXIC GRANULATION SLIGHT; TOXIC VACUOLATION PRESENT
[2017-01-04 07:49] LABS: PLATELET CLUMPS PRESENT
[2017-01-04 07:51] LABS: CREATINE KINASE MB 1.46 ng/mL (<4.55); POIKILOCYTOSIS SLIGHT; TROPONIN I 0.028 ng/mL
[2017-01-04 07:52] LABS: ANISOCYTOSIS SLIGHT
[2017-01-04] MEDS ORDERED: GLUCAGON,HUMAN RECOMB 1 MG INJ IM PRN (08:30)
[2017-01-04] MEDS ORDERED: DEXTROSE 50%-WATER 25 GM/50 ML DISP.SYRIN IV PRN ×2 (08:30)
[2017-01-04] MEDS ORDERED: DEXTROSE 40% GEL 15 GM TUBE PO PRN ×2 (08:30)
[2017-01-04] MEDS ORDERED: HALOPERIDOL 5 MG TABLET PO PRN (08:55)
[2017-01-04 08:56] LABS: APPEARANCE,URINE CLEAR; BILIRUBIN,URINE NEGATIVE (NEGATIVE); GLUCOSE, URINE >=500 mg/dL (NEGATIVE); KETONES,URINE TRACE mg/dL (NEGATIVE); LEUKOCYTE ESTERASE,URINE NEGATIVE (NEGATIVE); NITRITE,URINE NEGATIVE (NEGATIVE); PROTEIN,URINE NEGATIVE (NEGATIVE); URINE SPECIFIC GRAVITY 1.013; UROBILINOGEN,URINE NEGATIVE mg/dL (<2.0)
[2017-01-04] MEDS: TOBRAMYCIN SULFATE NEB 40 MG/ML 30 ML NEB SCH ×2 (09:01→20:18)
[2017-01-04] MEDS ORDERED: FUROSEMIDE INJ/PF 20 MG/2 ML SDV IV SCH (10:00)
[2017-01-04] MEDS ORDERED: (PENDING PHARMACY ID) (Fluticasone/Vilanterol [Breo Ellipta 100-25 Mcg Inh] 1 PUFF) IH SCH (10:00)
[2017-01-04] MEDS ORDERED: AZITHROMYCIN 500 MG in DEXTROSE 5%-WATER 250 ML IV SCH ×2 (10:00→22:00)
[2017-01-04] MEDS ORDERED: VENLAFAXINE HCL 75 MG CAP.SR.24H PO SCH (10:00)
[2017-01-04] MEDS ORDERED: [UNRECOGNIZED DRUG - OTHER] PO SCH (10:00)
[2017-01-04] MEDS: LANSOPRAZOLE 15 MG TAB.RAP.DR PO SCH (10:15)
[2017-01-04] MEDS: GUAIFENESIN 600 MG TABLET.SA PO SCH ×2 (10:15→21:48)
[2017-01-04] MEDS: LACTOBACILLUS ACIDOPHILUS 250 MG TAB PO SCH (10:15)
[2017-01-04] MEDS: FAMOTIDINE 20 MG TABLET PO SCH ×2 (10:15→21:48)
[2017-01-04] MEDS: ASPIRIN 325 MG TABLET, ENT COATED PO SCH (10:15)
[2017-01-04] MEDS: LISINOPRIL 5 MG TABLET PO SCH (10:15)
[2017-01-04] MEDS: MULTIVITAMIN TABLET PO SCH (10:15)
[2017-01-04] MEDS: VENLAFAXINE HCL 75 MG CAP.SR.24H PO SCH (10:16)
[2017-01-04] MEDS: TIOTROPIUM BROMIDE DPI 5 CAP/KIT (18 MCG/CAP) IH SCH (10:16)
[2017-01-04] MEDS: ENOXAPARIN SODIUM INJ 40 MG/0.4 ML DISP.SYRIN SUBCUT SCH (10:16)
[2017-01-04] MEDS: FUROSEMIDE INJ/PF 20 MG/2 ML SDV IV SCH ×3 (10:16→18:10)
[2017-01-04] MEDS: POTASSIUM CHLORIDE 10 MEQ TABLET.SA PO SCH (10:16)
[2017-01-04] MEDS: CEFEPIME 2 GM/D5W RTU 2 GM/50 ML RTUPB IV SCH ×2 (10:17→21:49)
[2017-01-04] MEDS: NORMAL SALINE 10 ML SDV (SCHEDULED) IV SCH ×2 (10:17→21:49)
--- NOTE | 2017-01-04 14:59 | PDOC PROGRESS REPORT ---
Subjective Progress Note for:: 01/04/17 Subjective:: Patient seen earlier today on morning rounds. She reports her breathing is better but she simply feels bad. Patient denies chest pain, abdominal pain, nausea, vomiting, fevers, chills, diarrhea, constipation, headache, new onset weakness. Physical Exam Vital Signs: Temp Pulse Resp BP Pulse Ox 98.5 F 104 H 16 130/70 H 94 01/04/17 07:52 01/04/17 13:38 01/04/17 13:38 01/04/17 07:52 01/04/17 13:38 Pulse Oximeter Continuous Start: 01/03/17 17: 51 Freq: RTQ4 Status: Active Document 01/04/17 13:38 [facility] (Rec: 01/04/17 13:53 [facility] [email or web address]) Pulse Oximetry Assessment Oxygen Saturation (92-100) 94 Oxygen Flow Rate (L/min) 4 Oxygen Delivery Method Nasal Cannula Fraction of Inspired Oxygen (FIO2) 36 Equipment Usage Equipment in Use Continuous SpO2 Machine # [id number] Intake & Output 01/03/17 01/04/17 01/05/17 06:59 06:59 06:59 Intake Total 475 350 Output Total 450 600 Balance 25 -250 Weight 80.7 kg Exam: General: Awake alert and oriented x3, mild-moderate respiratory distress HEENT: AT/NC, PERRL, EOMI, oropharynx is moist, pink, no scleral icterus, no conjunctival injection Neck: No JVD, trachea midline Chest: tachypnea, bilateral bibasilar crackles; prolonged expiratory phase CV: Regular rate and rhythm, normal S1 and S2, no rub or gallop; 3/6 SM RUSB, 2/ 6 apex SM Abdomen: Soft, nontender to palpation, nondistended, active bowel sounds; no rebound, rigidity, or guarding Extremities: No cyanosis, +clubbing, 2+ edema Neuro: Cranial nerves II through XII are grossly intact without focal deficits; awake alert and oriented x3 Psych: Normal mood and affect Results Laboratory Results: 01/04/17 06:42 01/04/17 06:42 01/03/17 01/04/17 01/04/17 18:51 06:42 06:42 WBC 13.4 H RBC 4.53 Hgb 12.9 Hct 38.7 MCV 85 MCH 28.6 MCHC 33.5 RDW 14.7 H Plt Count 159 Seg Neutrophils % Not Reportable Lymphocytes % Not Reportable Monocytes % Not Reportable Eosinophils % Not Reportable Basophils % Not Reportable Absolute Neutrophils Not Reportable Absolute Lymphocytes Not Reportable Absolute Monocytes Not Reportable Absolute Eosinophils Not Reportable Absolute Basophils Not Reportable Carbonic Acid 1.44 H HCO3/H2CO3 Ratio 24:1 ABG pH 7.48 H ABG pCO2 48.0 H ABG pO2 64.5 L ABG HCO3 34.7 H ABG O2 Saturation 93.7 L ABG Base Excess 9.7 FiO2 4L Sodium 136.3 L Potassium 3.8 Chloride 90 L Carbon Dioxide 38 H Anion Gap 8 BUN 16 Creatinine 0.72 Est GFR ( Amer) > 60 Est GFR (Non-Af Amer) > 60 Glucose 307 H Calcium 8.6 Magnesium 2.2 Urine Color Urine Appearance Urine pH Ur Specific Walker Urine Protein Urine Glucose (UA) Urine Ketones Urine Blood Urine Nitrite Ur Leukocyte Esterase Urine WBC (Auto) Urine RBC (Auto) 01/04/17 08:25 WBC RBC Hgb Hct MCV MCH MCHC RDW Plt Count Seg Neutrophils % Lymphocytes % Monocytes % Eosinophils % Basophils % Absolute Neutrophils Absolute Lymphocytes Absolute Monocytes Absolute Eosinophils Absolute Basophils Carbonic Acid HCO3/H2CO3 Ratio ABG pH ABG pCO2 ABG pO2 ABG HCO3 ABG O2 Saturation ABG Base Excess FiO2 Sodium Potassium Chloride Carbon Dioxide Anion Gap BUN Creatinine Est GFR ( Amer) Est GFR (Non-Af Amer) Glucose Calcium Magnesium Urine Color YELLOW Urine Appearance CLEAR Urine pH 6.0 Ur Specific Walker 1.013 Urine Protein NEGATIVE Urine Glucose (UA) >=500 H Urine Ketones TRACE H Urine Blood NEGATIVE Urine Nitrite NEGATIVE Ur Leukocyte Esterase NEGATIVE Urine WBC (Auto) 1 Urine RBC (Auto) 16 01/03/17 01/04/17 01/04/17 18:30 00:39 00:39 Creatine Kinase 63 CK-MB (CK-2) 1.66 Troponin I 0.032 0.045 01/04/17 01/04/17 06:42 06:42 Creatine Kinase 44 CK-MB (CK-2) 1.46 Troponin I 0.028 Impressions: Chest X-Ray 01/03/17 11:34 IMPRESSION: COPD. CHRONIC INTERSTITIAL CHANGES. NO ACUTE FINDINGS. Assessment & Plan - Diagnosis (1) Acute diastolic (congestive) heart failure Is this a current diagnosis for this admission?: Yes Plan: Patient continues to be volume overloaded. Echo pending No beta-natalie at this time secondary to bronchospastic disease Generic Name Dose Route Start Last Admin Trade Name Linda PRN Reason Stop Dose Admin Aspirin 325 mg 01/04/17 10:00 01/04/17 10:15 Ecotrin 325 Mg Ec Tablet PO 02/03/17 09:59 325 mg DAILY MAEGAN Furosemide 20 mg 01/04/17 10:00 01/04/17 14:30 Lasix Inj/Pf 20 Mg/2 Ml Sdv IV 02/03/17 09:59 20 mg TID MAEGAN Lisinopril 2.5 mg 01/04/17 10:00 01/04/17 10:15 Prinivil 5 Mg Tablet PO 02/03/17 09:59 2.5 mg DAILY MAEGAN (2) Atelectasis of both lungs Is this a current diagnosis for this admission?: Yes Plan: BiPAP as needed (3) COPD exacerbation Is this a current diagnosis for this admission?: Yes Plan: Decrease Solu-Medrol scheduled nebulized treatments (4) Acute on chronic respiratory failure with hypoxemia Is this a current diagnosis for this admission?: Yes Plan: BiPAP as needed Patient continues to require increased amount of oxygen (5) GERD (gastroesophageal reflux disease) Qualifiers: Esophagitis presence: esophagitis presence not specified Qualified Code(s) : K21.9 - Gastro-esophageal reflux disease without esophagitis Is this a current diagnosis for this admission?: Yes Plan: PPI daily (6) Pseudomonal pneumonia Qualifiers: Laterality: unspecified laterality Lung location: unspecified part of lung Qualified Code(s): J15.1 - Pneumonia due to Pseudomonas Is this a current diagnosis for this admission?: Yes Plan: Continue cefepime and inhaled tobramycin she will need a total of 14 days of IV cefepime. She has an allergy to Levaquin. (7) Sepsis Qualifiers: Sepsis type: Pseudomonas Qualified Code(s): A41.52 - Sepsis due to Pseudomonas Is this a current diagnosis for this admission?: No Plan: Sepsis criteria are met on this admission, but I feel this is secondary to her CHF exacerbation and ongoing steroid usage. - Time Time Spent with patient: 25-34 minutes Medications reviewed and adjusted accordingly: Yes Anticipated discharge: Acute Rehab
[2017-01-04] MEDS: MONTELUKAST SODIUM 10 MG TABLET PO SCH (18:10)
[2017-01-04] MEDS: HALOPERIDOL 5 MG TABLET PO SCH (21:48)
[2017-01-04] MEDS: INSULIN LISPRO 100 UNIT/ML 3 ML VIAL SUBCUT PRN (23:07)
[2017-01-05] MEDS: IPRATROPIUM/ALBUTEROL 0.5-2.5 MG/3 ML AMPUL NEB SCH ×4 (02:00→19:44)
[2017-01-05] MEDS: METHYLPREDNISOLONE INJ 40 MG/1 ML SDV IV SCH ×3 (05:03→22:18)
[2017-01-05 06:09] LABS: HEMATOCRIT 37.1 % (36.0-47.0); HEMOGLOBIN 12.4 g/dL (12.0-15.5); HGB HCT DIFFERENCE 0.1; MEAN CORPUSCULAR HEMOGLOBIN 28.6 pg (27.0-33.4); MEAN CORPUSCULAR HGB CONC 33.3 g/dL (32.0-36.0); MEAN CORPUSCULAR VOLUME 86 fl (80-97); RED BLOOD COUNT 4.32 10^6/uL (3.72-5.28); RED CELL DISTRIBUTION WIDTH 14.9 % (11.5-14.0); WHITE BLOOD COUNT 20.8 10^3/uL (4.0-10.5)
[2017-01-05 06:25] LABS: ANION GAP 8 (5-19); BLOOD UREA NITROGEN 30 mg/dL (7-20); CALCIUM 9.1 mg/dL (8.4-10.2); CARBON DIOXIDE 35 mmol/L (22-30); CHLORIDE 93 mmol/L (98-107); GLUCOSE 243 mg/dL (75-110); POTASSIUM 3.8 mmol/L (3.6-5.0); SODIUM 135.9 mmol/L (137-145)
[2017-01-05 06:49] LABS: BASOPHILS % (MANUAL) 0 % (0-2); EOSINOPHILS % (MANUAL) 0 % (0-6); LYMPHOCYTES % (MANUAL) 5 % (13-45); TOTAL CELLS COUNTED 100
[2017-01-05 06:50] LABS: ANISOCYTOSIS SLIGHT; HYPOCHROMASIA SLIGHT; TOXIC GRANULATION 2+
[2017-01-05] MEDS: TOBRAMYCIN SULFATE NEB 40 MG/ML 30 ML NEB SCH ×2 (07:43→19:44)
[2017-01-05] MEDS: LISINOPRIL 5 MG TABLET PO SCH (10:12)
[2017-01-05] MEDS: POTASSIUM CHLORIDE 10 MEQ TABLET.SA PO SCH (10:14)
[2017-01-05] MEDS: MULTIVITAMIN TABLET PO SCH (10:14)
[2017-01-05] MEDS: VENLAFAXINE HCL 75 MG CAP.SR.24H PO SCH (10:15)
[2017-01-05] MEDS: LANSOPRAZOLE 15 MG TAB.RAP.DR PO SCH (10:15)
[2017-01-05] MEDS: ASPIRIN 325 MG TABLET, ENT COATED PO SCH (10:15)
[2017-01-05] MEDS: LACTOBACILLUS ACIDOPHILUS 250 MG TAB PO SCH (10:16)
[2017-01-05] MEDS: GUAIFENESIN 600 MG TABLET.SA PO SCH ×2 (10:16→22:18)
[2017-01-05] MEDS: FAMOTIDINE 20 MG TABLET PO SCH ×2 (10:16→22:18)
[2017-01-05] MEDS: FUROSEMIDE INJ/PF 20 MG/2 ML SDV IV SCH ×3 (10:16→17:34)
[2017-01-05] MEDS: ENOXAPARIN SODIUM INJ 40 MG/0.4 ML DISP.SYRIN SUBCUT SCH (10:17)
[2017-01-05] MEDS: TIOTROPIUM BROMIDE DPI 5 CAP/KIT (18 MCG/CAP) IH SCH (10:18)
[2017-01-05] MEDS: NORMAL SALINE 10 ML SDV (SCHEDULED) IV SCH ×2 (10:19→22:19)
[2017-01-05] MEDS: CEFEPIME 2 GM/D5W RTU 2 GM/50 ML RTUPB IV SCH ×2 (10:20→22:18)
--- NOTE | 2017-01-05 17:01 | PDOC PROGRESS REPORT ---
Subjective Progress Note for:: 01/05/17 Subjective:: This is a follow-up visit for COPD exacerbation, pneumonia and CHF. The patient is accompanied by her daughter and states that she wants to . She is asked me directly if I will be willing or able to write her any medication to help assist in her suicide. She would like for her daughter to consider moving her to [place] or some place where assisted suicide would be legal. The patient has made it clear she does not feel depressed she simply feels that she has lived long and that she has seen everyone she wants to see and is helped everyone that she needs to help and now she is ready for her life to end. Her only caveat is that she does not want to be in any pain or suffering when this happens. The patient's and her daughter are concerned about elevated heart rate because they feel it causes her to be weak. The patient also tells me that when she is discharged from the hospital the plan is for her to go home with her daughter and that under no circumstances is she to be prescribed any steroids. She states that they have caused her to gain weight it makes it hard for her to turn over in bed. Physical Exam Vital Signs: Temp Pulse Resp BP Pulse Ox 98.1 F 114 H 18 100/70 97 01/05/17 10:58 01/05/17 13:52 01/05/17 13:52 01/05/17 10:58 01/05/17 13:52 Pulse Oximeter Continuous Start: 01/03/17 17: 51 Freq: RTQ4 Status: Active Document 01/05/17 13:52 J (Rec: 01/05/17 13:53 J [email or web address]) Pulse Oximetry Assessment Oxygen Saturation (92-100) 97 Oxygen Flow Rate (L/min) 4 Oxygen Delivery Method Nasal Cannula Equipment Usage Equipment in Use Continuous SpO2 Machine # 5 Intake & Output 01/04/17 01/05/17 01/06/17 06:59 06:59 06:59 Intake Total 475 1150 300 Output Total 450 600 400 Balance 25 550 -100 Weight 80.7 kg 80.8 kg GENERAL: This is a well-developed and nourished appearing overweight white female resting in her recliner currently in no acute distress. HEART: Tachycardic with rates ranging from 96-108 at rest. 1 out of 6 systolic ejection murmur no gallops or rubs. LUNGS: Coarse breath sounds bilaterally with equal rise and fall the chest. The patient does not appear to be particularly labored. She is able to speak in complete sentences without any conversational dyspnea. Leaning her forward in the chair does cause a drop in her O2 sats down to 87%. She is able to come back up right away. ABDOMEN: Soft, nontender, nondistended with normoactive bowel sounds EXTREMETIES: No clubbing, cyanosis or edema. 2+ peripheral pulses bilaterally. NEURO: Awake, alert and oriented 3. Cranial nerves II through XII are grossly intact. Psych: The patient has discussed with me at length how she feels that all people should not exist and that after he reached a certain age she should just be put on out to pasture Results Laboratory Results: 01/05/17 05:02 01/05/17 05:02 01/05/17 01/05/17 05:02 05:02 WBC 20.8 H RBC 4.32 Hgb 12.4 Hct 37.1 MCV 86 MCH 28.6 MCHC 33.3 RDW 14.9 H Plt Count 187 Seg Neutrophils % Not Reportable Lymphocytes % Not Reportable Monocytes % Not Reportable Eosinophils % Not Reportable Basophils % Not Reportable Absolute Neutrophils Not Reportable Absolute Lymphocytes Not Reportable Absolute Monocytes Not Reportable Absolute Eosinophils Not Reportable Absolute Basophils Not Reportable Sodium 135.9 L Potassium 3.8 Chloride 93 L Carbon Dioxide 35 H Anion Gap 8 BUN 30 H Creatinine 0.80 Est GFR ( Amer) > 60 Est GFR (Non-Af Amer) > 60 Glucose 243 H Calcium 9.1 01/03/17 01/04/17 01/04/17 18:30 00:39 00:39 Creatine Kinase 63 CK-MB (CK-2) 1.66 Troponin I 0.032 0.045 01/04/17 01/04/17 06:42 06:42 Creatine Kinase 44 CK-MB (CK-2) 1.46 Troponin I 0.028 Impressions: Chest X-Ray 01/03/17 11:34 IMPRESSION: COPD. CHRONIC INTERSTITIAL CHANGES. NO ACUTE FINDINGS. Assessment & Plan - Diagnosis (1) Acute on chronic respiratory failure with hypoxemia Is this a current diagnosis for this admission?: Yes Plan: Condition is multifactorial secondary to underlying pseudomonal pneumonia, COPD , underlying heart failure. Treat underlying conditions. Continue nebulizer treatments. (2) COPD exacerbation Is this a current diagnosis for this admission?: Yes Plan: Continue steroid treatment for now. The patient does not want to be discharged on prednisone due to weight gain. Continue nebulizer treatments. (3) Acute diastolic (congestive) heart failure Is this a current diagnosis for this admission?: Yes Plan: Continue diuresis. (4) GERD (gastroesophageal reflux disease) Qualifiers: Esophagitis presence: esophagitis presence not specified Qualified Code(s) : K21.9 - Gastro-esophageal reflux disease without esophagitis Is this a current diagnosis for this admission?: Yes Plan: Continue PPI. (5) Pseudomonal pneumonia Qualifiers: Laterality: unspecified laterality Lung location: unspecified part of lung Qualified Code(s): J15.1 - Pneumonia due to Pseudomonas Is this a current diagnosis for this admission?: Yes Plan: Continue cefepime twice daily. (6) Tachycardia Plan: Patient's heart rate is at 108 max. And especially her daughter seems preoccupied with this even in light of her wishes to . She feels like she is suffered more with the tachycardia present. Again at the bedside the heart rate ranged between 96-108. Beta blockers have been avoided due to her underlying lung status. This is a sinus tach. He can likely be explained from use of nebulizer treatments. The patient is on levalbuterol at this time. She is not on any home medications that we have overlooked. Blood pressures are borderline low right at 100 systolic. At this time I am reluctant to give her anything for rate control since it is consistently under 110. We will continue to monitor. (7) UTI (urinary tract infection) Qualifiers: Urinary tract infection type: acute cystitis Plan: Diplococcus found in the urine. Await final susceptibility and speciation. - Time Time Spent with patient: 25-34 minutes - Inpatient Certification Medical Necessity: Need Close Monitoring Due to Risk of Patient Decompensation
[2017-01-05] MEDS: MONTELUKAST SODIUM 10 MG TABLET PO SCH (17:33)
[2017-01-05] MEDS: INSULIN LISPRO 100 UNIT/ML 3 ML VIAL SUBCUT PRN (22:18)
[2017-01-05] MEDS: HALOPERIDOL 5 MG TABLET PO SCH (22:18)
[2017-01-06] MEDS: IPRATROPIUM/ALBUTEROL 0.5-2.5 MG/3 ML AMPUL NEB SCH ×4 (02:32→19:42)
[2017-01-06] MEDS: METHYLPREDNISOLONE INJ 40 MG/1 ML SDV IV SCH ×3 (06:04→22:08)
[2017-01-06] MEDS: INSULIN LISPRO 100 UNIT/ML 3 ML VIAL SUBCUT PRN ×4 (08:15→22:11)
[2017-01-06] MEDS: TOBRAMYCIN SULFATE NEB 40 MG/ML 30 ML NEB SCH ×2 (08:32→19:42)
[2017-01-06] MEDS: LACTOBACILLUS ACIDOPHILUS 250 MG TAB PO SCH (09:48)
[2017-01-06] MEDS: GUAIFENESIN 600 MG TABLET.SA PO SCH ×2 (09:48→22:08)
[2017-01-06] MEDS: LANSOPRAZOLE 15 MG TAB.RAP.DR PO SCH (09:48)
[2017-01-06] MEDS: MULTIVITAMIN TABLET PO SCH (09:48)
[2017-01-06] MEDS: FAMOTIDINE 20 MG TABLET PO SCH ×2 (09:49→22:07)
[2017-01-06] MEDS: POTASSIUM CHLORIDE 10 MEQ TABLET.SA PO SCH (09:49)
[2017-01-06] MEDS: VENLAFAXINE HCL 75 MG CAP.SR.24H PO SCH (09:50)
[2017-01-06] MEDS: FUROSEMIDE INJ/PF 20 MG/2 ML SDV IV SCH ×3 (09:50→17:56)
[2017-01-06] MEDS: ASPIRIN 325 MG TABLET, ENT COATED PO SCH (09:50)
[2017-01-06] MEDS: TIOTROPIUM BROMIDE DPI 5 CAP/KIT (18 MCG/CAP) IH SCH (09:51)
[2017-01-06] MEDS: LISINOPRIL 5 MG TABLET PO SCH (09:51)
[2017-01-06] MEDS: NORMAL SALINE 10 ML SDV (SCHEDULED) IV SCH ×2 (09:52→22:12)
[2017-01-06] MEDS: ENOXAPARIN SODIUM INJ 40 MG/0.4 ML DISP.SYRIN SUBCUT SCH (09:52)
[2017-01-06] MEDS: CEFEPIME 2 GM/D5W RTU 2 GM/50 ML RTUPB IV SCH ×2 (09:54→22:11)
[2017-01-06] MEDS: LINEZOLID 300 ML IV SCH ×2 (11:49→22:14)
--- NOTE | 2017-01-06 14:13 | PDOC PROGRESS REPORT ---
Subjective Progress Note for:: 01/06/17 Subjective:: This is a follow-up visit for COPD exacerbation, pneumonia and CHF. The patient had a good night overnight. she said she slept somewhere between 8 and 10 hours. She states that she still feels short of breath with activity. I have notified her that her urine came back positive with enterococcus and that she will be started on linezolid. Unfortunately there is an interaction between this and her venlafaxine. She has been made aware that she will need to stop this antidepressant for short time while she has been treated for urinary tract infection, as linezolid is the only p.o. medications that I will be able to discharge her on. We also discussed that her heart rate has been below 100 consistently today. I shared with her that she has low normal blood pressures and that I do not want to tip her over the edge and cause hypotension with the addition of a medication such as a calcium channel natalie or beta- natalie. The patient agrees that we will wait and see how things go. Hopefully with treatment of her other underlying conditions her heart rate will settle down. Physical Exam Vital Signs: Temp Pulse Resp BP Pulse Ox 98.2 F 105 H 16 110/52 L 97 01/06/17 11:50 01/06/17 13:34 01/06/17 13:34 01/06/17 11:50 01/06/17 11:50 Pulse Oximeter Continuous Start: 01/03/17 17: 51 Freq: Status: Hold Document 01/05/17 19:45 SFL (Rec: 01/05/17 21:50 SFL [email or web address]) Pulse Oximetry Assessment Oxygen Saturation (92-100) 97 Oxygen Flow Rate (L/min) 4 Oxygen Delivery Method Nasal Cannula Equipment Usage Equipment in Use Continuous SpO2 Machine # 5 Intake & Output 01/05/17 01/06/17 01/07/17 06:59 06:59 06:59 Intake Total 1150 1700 540 Output Total 600 1125 400 Balance 550 575 140 Weight 80.8 kg 81.2 kg GENERAL: This is a well-developed and nourished appearing overweight white female resting in her recliner currently in no acute distress. HEART: Tachycardic at the bedside. 1 out of 6 systolic ejection murmur. no gallops or rubs. LUNGS: Coarse breath sounds bilaterally with equal rise and fall the chest. The patient does not appear to be particularly labored. She is able to speak in complete sentences without any conversational dyspnea. ABDOMEN: Soft, nontender, nondistended with normoactive bowel sounds EXTREMETIES: No clubbing, cyanosis or edema. 2+ peripheral pulses bilaterally. NEURO: Awake, alert and oriented 3. Cranial nerves II through XII are grossly intact. Results Laboratory Results: 01/05/17 05:02 01/05/17 05:02 01/04/17 08:25 Clean Catch Midstream Urine Culture - Final Enterococcus Faecium (Group D) 01/03/17 01/04/17 01/04/17 18:30 00:39 00:39 Creatine Kinase 63 CK-MB (CK-2) 1.66 Troponin I 0.032 0.045 01/04/17 01/04/17 06:42 06:42 Creatine Kinase 44 CK-MB (CK-2) 1.46 Troponin I 0.028 Impressions: Chest X-Ray 01/03/17 11:34 IMPRESSION: COPD. CHRONIC INTERSTITIAL CHANGES. NO ACUTE FINDINGS. Assessment & Plan - Diagnosis (1) Acute on chronic respiratory failure with hypoxemia Is this a current diagnosis for this admission?: Yes Plan: Condition is multifactorial secondary to underlying pseudomonal pneumonia, COPD , underlying heart failure. Treat underlying conditions. Continue nebulizer treatments. (2) COPD exacerbation Is this a current diagnosis for this admission?: Yes Plan: Continue steroid treatment for now. The patient does not want to be discharged on prednisone due to weight gain. Continue nebulizer treatments. Continue Singulair, ADRIEN nebs. Will add Advair (3) Acute diastolic (congestive) heart failure Is this a current diagnosis for this admission?: Yes Plan: Continue diuresis. Patient's most recent echo shows grade 2 out of 6 systolic diastolic dysfunction. (4) GERD (gastroesophageal reflux disease) Qualifiers: Esophagitis presence: esophagitis presence not specified Qualified Code(s) : K21.9 - Gastro-esophageal reflux disease without esophagitis Is this a current diagnosis for this admission?: Yes Plan: Continue PPI. (5) Pseudomonal pneumonia Qualifiers: Laterality: unspecified laterality Lung location: unspecified part of lung Qualified Code(s): J15.1 - Pneumonia due to Pseudomonas Is this a current diagnosis for this admission?: Yes Plan: Continue cefepime twice daily. (6) Tachycardia Plan: Patient's heart rate has been below 100 today. Hopefully it will continue to improve with treatment of her underlying illnesses. For now we are going to hold off on addition of any rate control medications in favor of maintaining a reasonable blood pressure.. (7) UTI (urinary tract infection) Qualifiers: Urinary tract infection type: acute cystitis Plan: Enterococcus was found in the patient's urine. The only oral medication that she can have his linezolid. We will start this IV and then transitioned to p.o. I have discontinued her venlafaxine secondary to interactions. - Time Time Spent with patient: 15-24 minutes - Inpatient Certification Medical Necessity: Need Close Monitoring Due to Risk of Patient Decompensation - Due to respiratory failure
[2017-01-06] MEDS: MONTELUKAST SODIUM 10 MG TABLET PO SCH (17:56)
[2017-01-06] MEDS: HALOPERIDOL 5 MG TABLET PO SCH (22:08)
[2017-01-06] MEDS: FLUTICASONE/SALMETEROL DISKUS 250-50 MCG/DOSE IH SCH (22:15)
[2017-01-06] MEDS: NORMAL SALINE 10 ML SDV (AFTER EACH USE) IV PRN (22:15)
[2017-01-07] MEDS: IPRATROPIUM/ALBUTEROL 0.5-2.5 MG/3 ML AMPUL NEB SCH ×3 (01:51→14:27)
[2017-01-07] MEDS: METHYLPREDNISOLONE INJ 40 MG/1 ML SDV IV SCH ×2 (06:48→14:58)
[2017-01-07 06:59] LABS: ABSOLUTE LYMPHOCYTES (AUTO) 1.5 10^3/uL (0.5-4.7); ABSOLUTE MONOCYTES (AUTO) 1.5 10^3/uL (0.1-1.4); ABSOLUTE NEUT (AUTO) 12.9 10^3/uL (1.7-8.2); BASOPHILS % (AUTO) 0.1 % (0-2); EOSINOPHILS % (AUTO) 0.1 % (0-6); HEMATOCRIT 39.7 % (36.0-47.0); HEMOGLOBIN 13.2 g/dL (12.0-15.5); HGB HCT DIFFERENCE -0.1; LYMPHOCYTES % (AUTO) 9.6 % (13-45); MEAN CORPUSCULAR HEMOGLOBIN 28.6 pg (27.0-33.4); MEAN CORPUSCULAR HGB CONC 33.2 g/dL (32.0-36.0); MEAN CORPUSCULAR VOLUME 86 fl (80-97); MONOCYTES % (AUTO) 9.5 % (3-13); RED BLOOD COUNT 4.62 10^6/uL (3.72-5.28); RED CELL DISTRIBUTION WIDTH 15.1 % (11.5-14.0); SEGMENTED NEUTROPHILS % (AUTO) 80.7 % (42-78)
[2017-01-07 07:08] LABS: ANION GAP 10 (5-19); BLOOD UREA NITROGEN 25 mg/dL (7-20); CALCIUM 9.6 mg/dL (8.4-10.2); CARBON DIOXIDE 35 mmol/L (22-30); CHLORIDE 91 mmol/L (98-107); CREATININE RESULT 0.89 mg/dL (0.52-1.25); GLUCOSE 214 mg/dL (75-110); MAGNESIUM 2.1 mg/dL (1.6-2.3); POTASSIUM 4.1 mmol/L (3.6-5.0); SODIUM 136.2 mmol/L (137-145)
[2017-01-07] MEDS: TOBRAMYCIN SULFATE NEB 40 MG/ML 30 ML NEB SCH ×2 (08:32→19:43)
[2017-01-07] MEDS: INSULIN LISPRO 100 UNIT/ML 3 ML VIAL SUBCUT PRN ×4 (08:32→23:49)
[2017-01-07] MEDS: LACTOBACILLUS ACIDOPHILUS 250 MG TAB PO SCH (09:38)
[2017-01-07] MEDS: FAMOTIDINE 20 MG TABLET PO SCH ×2 (09:39→22:54)
[2017-01-07] MEDS: ASPIRIN 325 MG TABLET, ENT COATED PO SCH (09:39)
[2017-01-07] MEDS: MULTIVITAMIN TABLET PO SCH (09:39)
[2017-01-07] MEDS: LISINOPRIL 5 MG TABLET PO SCH (09:39)
[2017-01-07] MEDS: LANSOPRAZOLE 15 MG TAB.RAP.DR PO SCH (09:40)
[2017-01-07] MEDS: FLUTICASONE/SALMETEROL DISKUS 250-50 MCG/DOSE IH SCH ×2 (09:40→22:55)
[2017-01-07] MEDS: GUAIFENESIN 600 MG TABLET.SA PO SCH ×2 (09:40→22:54)
[2017-01-07] MEDS: POTASSIUM CHLORIDE 10 MEQ TABLET.SA PO SCH (09:40)
[2017-01-07] MEDS: TIOTROPIUM BROMIDE DPI 5 CAP/KIT (18 MCG/CAP) IH SCH (09:51)
[2017-01-07] MEDS: CEFEPIME 2 GM/D5W RTU 2 GM/50 ML RTUPB IV SCH ×2 (09:53→22:53)
[2017-01-07] MEDS: FUROSEMIDE INJ/PF 20 MG/2 ML SDV IV SCH ×3 (09:54→17:41)
[2017-01-07] MEDS: ENOXAPARIN SODIUM INJ 40 MG/0.4 ML DISP.SYRIN SUBCUT SCH (09:55)
[2017-01-07] MEDS: NORMAL SALINE 10 ML SDV (SCHEDULED) IV SCH ×2 (09:55→22:57)
[2017-01-07] MEDS: LINEZOLID 300 ML IV SCH (11:19)
[2017-01-07] MEDS: LEVALBUTEROL HCL NEB 1.25 MG/3 ML AMPUL NEB PRN ×2 (14:25→19:43)
[2017-01-07] MEDS: MONTELUKAST SODIUM 10 MG TABLET PO SCH (17:41)
--- NOTE | 2017-01-07 22:05 | PDOC PROGRESS REPORT ---
Subjective Progress Note for:: 01/07/17 Subjective:: This is a follow-up visit for COPD exacerbation, pneumonia and CHF. The patient had a good night overnight. Her daughter is present at the bedside and believes that she is a little more confused today. She expresses concern that she is not getting Xopenex over the duo nebs. Physical Exam Vital Signs: Temp Pulse Resp BP Pulse Ox 98.1 F 106 H 18 146/67 H 96 01/07/17 19:39 01/07/17 19:39 01/07/17 19:39 01/07/17 19:39 01/07/17 19:39 Pulse Oximeter Continuous Start: 01/03/17 17: 51 Freq: Status: Hold Document 01/05/17 19:45 SFL (Rec: 01/05/17 21:50 SFL [email or web address]) Pulse Oximetry Assessment Oxygen Saturation (92-100) 97 Oxygen Flow Rate (L/min) 4 Oxygen Delivery Method Nasal Cannula Equipment Usage Equipment in Use Continuous SpO2 Machine # 5 Intake & Output 01/06/17 01/07/17 01/08/17 06:59 06:59 06:59 Intake Total 1700 1660 1501 Output Total 3319 671 6049 Balance 575 760 -849 Weight 81.2 kg 79.6 kg GENERAL: This is a well-developed and nourished appearing overweight white female resting in her bed currently in no acute distress. HEART: Regular rate and rhythm at 86 at the bedside. 1 out of 6 systolic ejection murmur. no gallops or rubs. LUNGS: Coarse breath sounds bilaterally with equal rise and fall the chest. The patient does not appear to be particularly labored. She is able to speak in complete sentences without any conversational dyspnea. ABDOMEN: Soft, nontender, nondistended with normoactive bowel sounds EXTREMETIES: No clubbing, cyanosis or edema. 2+ peripheral pulses bilaterally. NEURO: Awake, alert and oriented 3. Cranial nerves II through XII are grossly intact. Results Laboratory Results: 01/07/17 06:25 01/07/17 06:25 01/07/17 01/07/17 06:25 06:25 WBC 16.0 H RBC 4.62 Hgb 13.2 Hct 39.7 MCV 86 MCH 28.6 MCHC 33.2 RDW 15.1 H Plt Count 211 Seg Neutrophils % 80.7 H Lymphocytes % 9.6 L Monocytes % 9.5 Eosinophils % 0.1 Basophils % 0.1 Absolute Neutrophils 12.9 H Absolute Lymphocytes 1.5 Absolute Monocytes 1.5 H Absolute Eosinophils 0.0 Absolute Basophils 0.0 Sodium 136.2 L Potassium 4.1 Chloride 91 L Carbon Dioxide 35 H Anion Gap 10 BUN 25 H Creatinine 0.89 Est GFR ( Amer) > 60 Est GFR (Non-Af Amer) > 60 Glucose 214 H Calcium 9.6 Magnesium 2.1 01/03/17 01/04/17 01/04/17 18:30 00:39 00:39 Creatine Kinase 63 CK-MB (CK-2) 1.66 Troponin I 0.032 0.045 01/04/17 01/04/17 06:42 06:42 Creatine Kinase 44 CK-MB (CK-2) 1.46 Troponin I 0.028 Impressions: Chest X-Ray 01/03/17 11:34 IMPRESSION: COPD. CHRONIC INTERSTITIAL CHANGES. NO ACUTE FINDINGS. Assessment & Plan - Diagnosis (1) Acute on chronic respiratory failure with hypoxemia Is this a current diagnosis for this admission?: Yes Plan: Condition is multifactorial secondary to underlying pseudomonal pneumonia, COPD , underlying heart failure. Treat underlying conditions. Continue nebulizer treatments. (2) COPD exacerbation Is this a current diagnosis for this admission?: Yes Plan: Continue steroid treatment for now. The patient does not want to be discharged on prednisone due to weight gain. Continue nebulizer treatments. Continue Singulair, ADRIEN nebs and Advair (3) Acute diastolic (congestive) heart failure Is this a current diagnosis for this admission?: Yes Plan: Continue diuresis. Patient's most recent echo shows grade 2 out of 6 systolic diastolic dysfunction. (4) GERD (gastroesophageal reflux disease) Qualifiers: Esophagitis presence: esophagitis presence not specified Qualified Code(s) : K21.9 - Gastro-esophageal reflux disease without esophagitis Is this a current diagnosis for this admission?: Yes Plan: Continue PPI. (5) Pseudomonal pneumonia Qualifiers: Laterality: unspecified laterality Lung location: unspecified part of lung Qualified Code(s): J15.1 - Pneumonia due to Pseudomonas Is this a current diagnosis for this admission?: Yes Plan: Continue cefepime twice daily. (6) Tachycardia Plan: Patient's heart rate has been below 100 today. Hopefully it will continue to improve with treatment of her underlying illnesses. For now we are going to hold off on addition of any rate control medications in favor of maintaining a reasonable blood pressure. She is been in the 80s for much of the day. (7) UTI (urinary tract infection) Qualifiers: Urinary tract infection type: acute cystitis Plan: Enterococcus was found in the patient's urine. The only oral medication that she can have his linezolid. Continue this IV and then transitioned to p.o. tomorrow. I have discontinued her venlafaxine secondary to interactions. - Time Time Spent with patient: 15-24 minutes Anticipated discharge: Home - Inpatient Certification Medical Necessity: Need Close Monitoring Due to Risk of Patient Decompensation
[2017-01-07] MEDS: HALOPERIDOL 5 MG TABLET PO SCH (22:55)
[2017-01-07] MEDS: LINEZOLID 600 MG TABLET PO SCH (22:55)
[2017-01-07] MEDS ORDERED: LINEZOLID 600 MG TABLET PO SCH (23:00)
[2017-01-08] MEDS: LANSOPRAZOLE 15 MG TAB.RAP.DR PO SCH (06:41)
[2017-01-08] MEDS: TOBRAMYCIN SULFATE NEB 40 MG/ML 30 ML NEB SCH ×2 (08:05→19:49)
[2017-01-08] MEDS: LEVALBUTEROL HCL NEB 1.25 MG/3 ML AMPUL NEB PRN ×2 (08:06→19:50)
[2017-01-08] MEDS: FUROSEMIDE INJ/PF 20 MG/2 ML SDV IV SCH ×3 (08:42→17:40)
[2017-01-08] MEDS: PREDNISONE 20 MG TABLET PO SCH (08:42)
[2017-01-08] MEDS: CEFEPIME 2 GM/D5W RTU 2 GM/50 ML RTUPB IV SCH ×2 (08:43→22:06)
[2017-01-08] MEDS: GUAIFENESIN 600 MG TABLET.SA PO SCH ×2 (08:43→22:07)
[2017-01-08] MEDS: POTASSIUM CHLORIDE 10 MEQ TABLET.SA PO SCH (08:43)
[2017-01-08] MEDS: FAMOTIDINE 20 MG TABLET PO SCH ×2 (08:44→22:07)
[2017-01-08] MEDS: LISINOPRIL 5 MG TABLET PO SCH (08:44)
[2017-01-08] MEDS: LACTOBACILLUS ACIDOPHILUS 250 MG TAB PO SCH (08:44)
[2017-01-08] MEDS: ASPIRIN 325 MG TABLET, ENT COATED PO SCH (08:44)
[2017-01-08] MEDS: MULTIVITAMIN TABLET PO SCH (08:45)
[2017-01-08] MEDS: FLUTICASONE/SALMETEROL DISKUS 250-50 MCG/DOSE IH SCH ×2 (08:45→22:08)
[2017-01-08] MEDS: TIOTROPIUM BROMIDE DPI 5 CAP/KIT (18 MCG/CAP) IH SCH (08:45)
[2017-01-08] MEDS: NORMAL SALINE 10 ML SDV (SCHEDULED) IV SCH ×2 (08:46→22:09)
[2017-01-08] MEDS: INSULIN LISPRO 100 UNIT/ML 3 ML VIAL SUBCUT PRN ×2 (09:00→17:41)
[2017-01-08] MEDS: ENOXAPARIN SODIUM INJ 40 MG/0.4 ML DISP.SYRIN SUBCUT SCH (09:00)
[2017-01-08] MEDS ORDERED: VENLAFAXINE HCL 75 MG CAP.SR.24H PO SCH (10:00)
--- NOTE | 2017-01-08 11:27 | PDOC DISCHARGE SUMMARY ---
General - Admit/Disc Date/PCP Admission Date/Primary Care Provider: 01/03/17 17:49 [facility] Discharge Date: 01/08/17 - Discharge Diagnosis (1) Acute on chronic respiratory failure with hypoxemia Is this a current diagnosis for this admission?: Yes Summary: Improved overall. Continue home oxygen. Continue nebulizers and home as needed. Follow-up with PCP in 1 week. (2) COPD exacerbation Is this a current diagnosis for this admission?: Yes Summary: Steroid taper has been written. Follow-up with PCP in a week. (3) Acute diastolic (congestive) heart failure Is this a current diagnosis for this admission?: Yes Summary: Improved with diuresis. Echocardiogram was done back in August of last year. At that time she had a grade 2 diastolic dysfunction. (4) GERD (gastroesophageal reflux disease) Is this a current diagnosis for this admission?: Yes Summary: Continue outpatient medications. (5) Pseudomonal pneumonia Is this a current diagnosis for this admission?: Yes Summary: Status post cefepime. (6) Tachycardia Summary: Resolved with changing duo nebs to Xopenex. And with improvement of underlying pneumonia. (7) UTI (urinary tract infection) Summary: Continue Linezolid for total of 7 days. (8) Depression Summary: The patient is on venlafaxine. This will have to be temporarily discontinued Linezolid. Resume after the seven-day course is complete. - Additional Information Resuscitation Status: Full Code Home Medications: Dexlansoprazole [Dexilant 30 mg Capsule] 30 mg PO DAILY 12/29/16 Fluticasone/Vilanterol [Breo Ellipta 100-25 Mcg INH] 1 puff IH DAILY 12/29/16 Montelukast Sodium [Singulair 10 mg Tablet] 10 mg PO QPM 12/29/16 Tiotropium [place] [Spiriva Handihaler 5 Cap/Kit (18 Mcg/Cap)] 1 puff IH DAILY 12/29/16 Tobramycin in 0.225% Sod Chlor [Tobramycin 300 mg/5 ml Ampule] 5 ml NEB Q12 04/04 Venlafaxine HCl ER [Effexor Xr 75 mg Cap.sr] 2 cap PO DAILY 12/29/16 Furosemide [Lasix 20 mg Tablet] 10 mg PO DAILY #30 tablet 01/01/17 Guaifenesin [Mucinex Sr 600 mg Tablet.sa] 600 mg PO Q12 #20 tablet.sa 01/01/17 Haloperidol [Haldol 5 mg Tablet] 5 mg PO QHS #30 tablet 01/01/17 Cefepime 2 gm/D5w RTU [Maxipime RTU 2 gm-D5w 50 ml Premix Bag] 2 gm IV Q12 01/03 Heparin Sodium,Porcine [Heparin Flush 10 Unit/ml 5 ml Disp.syrg] 50 unit IV Q12H 01/03/17 Lactobacillus 3/Fos/Pantethine [Probiotic & Acidophilus Cap] 1 each PO DAILY Multivitamin [Multivitamins] 1 each PO DAILY 01/03/17 Prednisolone 10 mg PO DAILY 01/03/17 Vits A,C,E/Lutein/Minerals [Vision Formula with Lutein Tab] 1 each PO DAILY History of Present Illness History of Present Illness: SERGEY RIVERA is a 86 year old white female who presented to the service with complaints of shortness of breath. She was admitted for acute respiratory failure due to continuing underlying pneumonia and heart failure. Please see the admission H&P below for further detail. This was performed by the admitting physician. Admission Date/PCP: 01/03/17 17:53 [facility] History of Present Illness: SERGEY RIVERA is a 86 year old female who was recently admitted for COPD exacerbation and pseudomonal lower respiratory tract infection and was discharged to [facility]. After 24 hours there, patient left and went home. Patient began having increasing dyspnea and presented to the emergency department. Patient is found to be quite volume overloaded and has had improvement with BiPAP and Lasix. She is referred to hospital service for acute exacerbation of CHF. Hospital Course Hospital Course: The patient was admitted to the hospital she was continued on cefepime for her pseudomonal pneumonia. She initially was on bilevel Pap. It was felt that some of her respiratory distress was attributable to COPD exacerbation and therefore she was started on 60 mg of Solu-Medrol q. 8. Was felt that sepsis criteria were met but that most of this was likely due to CHF exacerbation. Echocardiogram was obtained on this admission and the patient continued on scheduled nebulizer treatment and bilevel Pap as needed. Ultimately the patient was able to be weaned off of BiPAP and transitioned to nasal cannula. During her stay she was found to be tachycardic with rates as high as 110. This was a sinus tachycardia and it was felt to be due to use of duo nebs and her general medical conditions. The patient did have a E. coli UTI that was found during her admission here. Unfortunately the organism was susceptible to only 1 p.o. medication. That medications Linezolid and therefore the patient was started on this. She initially was started IV and then converted to p.o. during her hospitalization I had a angela discussion with the patient. She told me that she is ready to when her time comes. She does not want extensive measures to keep going and that she simply wants to be in no pain whenever her time comes. She has oxygen at home. She is ready to go home and cope with her breathing there. I recommend that she follow with her primary care physician in a week of discharge. She has extra doses of cefepime at home. I do not think that she needs to continue this medication any further. The patient is still a bit dyspneic when up and moving all round but at rest she is unlabored. Hopefully this will improve with time. Physical Exam Vital Signs: Temp Pulse Resp BP Pulse Ox 98.3 F 87 16 118/49 L 96 01/08/17 07:47 01/08/17 08:41 01/08/17 08:41 01/08/17 07:47 01/08/17 08:41 Pulse Oximeter Continuous Start: 01/03/17 17: 51 Freq: Status: Hold Document 01/05/17 19:45 SFL (Rec: 01/05/17 21:50 SFL [email or web address]) Pulse Oximetry Assessment Oxygen Saturation (92-100) 97 Oxygen Flow Rate (L/min) 4 Oxygen Delivery Method Nasal Cannula Equipment Usage Equipment in Use Continuous SpO2 Machine # 5 Intake & Output 01/07/17 01/08/17 01/09/17 06:59 06:59 06:59 Intake Total 1660 2101 Output Total 900 2800 Balance 760 -699 Weight 79.6 kg 79.6 kg GENERAL: This is a well-developed and nourished appearing overweight white female resting in her recliner currently in no acute distress. HEART: Regular rate and rhythm at 87 at the bedside. 1 out of 6 systolic ejection murmur. no gallops or rubs. LUNGS: Coarse breath sounds bilaterally with equal rise and fall the chest. The patient does not appear to be particularly labored. She is able to speak in complete sentences without any conversational dyspnea. ABDOMEN: Soft, nontender, nondistended with normoactive bowel sounds EXTREMETIES: No clubbing, cyanosis or edema. 2+ peripheral pulses bilaterally. NEURO: Awake, alert and oriented 3. Cranial nerves II through XII are grossly intact. Results Laboratory Results: 01/07/17 06:25 01/07/17 06:25 01/03/17 01/04/17 01/04/17 18:30 00:39 00:39 Creatine Kinase 63 CK-MB (CK-2) 1.66 Troponin I 0.032 0.045 01/04/17 01/04/17 06:42 06:42 Creatine Kinase 44 CK-MB (CK-2) 1.46 Troponin I 0.028 Impressions: Chest X-Ray 01/03/17 11:34 IMPRESSION: COPD. CHRONIC INTERSTITIAL CHANGES. NO ACUTE FINDINGS. Qualifiers PATEINT BEING DISCHARGED WITH ANY OF THE FOLLOWING DIAGNOSIS?: No Plan Time Spent: Greater than 30 Minutes
[2017-01-08] MEDS: LINEZOLID 600 MG TABLET PO SCH ×2 (13:47→22:07)
[2017-01-08] MEDS: MONTELUKAST SODIUM 10 MG TABLET PO SCH (17:40)
--- NOTE | 2017-01-08 19:45 | XCELERA REPORT ---
[address] [address] Transthoracic Echocardiogram Report Name: SERGEY RIVERA Age: 86 yrs Gender: Female : 1930 Patient Status: Inpatient Patient Location: [address] [place] [address] Study Date: 01/08/2017 02:06 PM Height: 67 in Weight: 175 lb BSA: 1.9 m2 Procedure: A complete two-dimensional transthoracic echocardiogram was performed (2D, M-mode, spectral and color flow Doppler). The study was technically difficult with many images being suboptimal in quality. Reason For Study: chf Ordering Physician: BIMAL THAKKAR Performed By: aGrry Merrill Interpretation Summary The study was technically difficult with many images being suboptimal in quality. The left ventricular ejection fraction is normal. Doppler measurements suggest pseudonormalized left ventricular relaxation, which is associated with grade II/IV or mild to moderate diastolic dysfunction There is mild concentric left ventricular hypertrophy. Not all wall segments were well visualized. Wall motion cannot be accurately commented on, but no definite regional wall motion abnormalities noted. The right ventricular systolic function is normal. The left atrium is mildly dilated. The right atrium is normal in size There is a trace amount of mitral regurgitation There is no mitral valve stenosis. There is mild to moderate aortic stenosis There is a peak gradient of 35-40, mean 15-20 mm of Hg. There is a trace amount of aortic regurgitation There is a trace to mild amount of tricuspid regurgitation There is mild pulmonary hypertension by echo Right ventricular systolic pressure is estimated to be elevated at 30- 40mmHg. There is no pericardial effusion. MMode/2D Measurements & Calculations RVDd: 2.6 cm LVIDd: 3.9 cm FS: 30.8 % Ao root diam: 3.2 cm IVSd: 1.2 cm LVIDs: 2.7 cm EDV(Teich): 65.2 ml LVPWd: 1.2 cm ESV(Teich): 26.7 ml Ao root area: 8.0 cm2 EF(Teich): 59.1 % LA dimension: 3.8 cm LVOT diam: 2.1 cm LVOT area: 3.6 cm2 Doppler Measurements & Calculations MV E max robert: MV P1/2t max robert: Ao V2 max: LV V1 max P.3 cm/sec 52.3 cm/sec 297.1 cm/sec 4.0 mmHg MV A max robert: MV P1/2t: 53.1 msec Ao max PG: LV V1 mean P.2 cm/sec MVA(P1/2t): 4.1 cm2 35.3 mmHg 1.4 mmHg MV E/A: 0.54 MV dec slope: Ao V2 mean: LV V1 max: 288.8 cm/sec2 187.6 cm/sec 99.8 cm/sec Ao mean PG: LV V1 mean: 16.4 mmHg 52.8 cm/sec Ao V2 VTI: 48.9 cmLV V1 VTI: FELIX(I,D): 1.5 cm2 20.6 cm FELIX(V,D): 1.2 cm2 SV(LVOT): 74.4 ml TR max robert: RAP systole: 267.4 cm/sec 10.0 mmHg TR max P.6 mmHg RVSP(TR): 38.6 mmHg Left Ventricle The left ventricle is grossly normal size. There is mild concentric left ventricular hypertrophy. The left ventricular ejection fraction is normal. Doppler measurements suggest pseudonormalized left ventricular relaxation, which is associated with grade II/IV or mild to moderate diastolic dysfunction. Not all wall segments were well visualized. Wall motion cannot be accurately commented on, but no definite regional wall motion abnormalities noted. Right Ventricle The right ventricle is grossly normal size. There is normal right ventricular wall thickness. The right ventricular systolic function is normal. Atria The right atrium is normal in size. The left atrium is mildly dilated. Interarterial septum not well visualized and not well dopplered. Cannot comment on ASD/PFO presence. Mitral Valve The mitral valve is grossly normal. There is no mitral valve stenosis. There is a trace amount of mitral regurgitation. Aortic Valve The aortic valve is moderately calcified. There is mild to moderate aortic stenosis. There is a peak gradient of 35-40, mean 15-20 mm of Hg. There is a trace amount of aortic regurgitation. Tricuspid Valve The tricuspid valve is not well visualized secondary to technical limitations. There is no tricuspid stenosis. There is a trace to mild amount of tricuspid regurgitation. There is mild pulmonary hypertension by echo. Right ventricular systolic pressure is estimated to be elevated at 30-40mmHg. Pulmonic Valve The pulmonic valve is not well visualized. Great Vessels The aortic root is not well visualized but is probably normal size. The inferior vena cava was not well visualized. Effusions There is no pericardial effusion. : BIMAL THAKKAR > Moses Angelo
[2017-01-08] MEDS: HALOPERIDOL 5 MG TABLET PO SCH (22:07)
[2017-01-09] MEDS: LANSOPRAZOLE 15 MG TAB.RAP.DR PO SCH (06:27)
[2017-01-09] MEDS: LEVALBUTEROL HCL NEB 1.25 MG/3 ML AMPUL NEB PRN (08:11)
[2017-01-09] MEDS: TOBRAMYCIN SULFATE NEB 40 MG/ML 30 ML NEB SCH (08:11)
[2017-01-09] MEDS: FUROSEMIDE INJ/PF 20 MG/2 ML SDV IV SCH (10:22)
[2017-01-09] MEDS: FAMOTIDINE 20 MG TABLET PO SCH (10:22)
[2017-01-09] MEDS: LACTOBACILLUS ACIDOPHILUS 250 MG TAB PO SCH (10:23)
[2017-01-09] MEDS: LISINOPRIL 5 MG TABLET PO SCH (10:23)
[2017-01-09] MEDS: GUAIFENESIN 600 MG TABLET.SA PO SCH (10:23)
[2017-01-09] MEDS: ASPIRIN 325 MG TABLET, ENT COATED PO SCH (10:24)
[2017-01-09] MEDS: POTASSIUM CHLORIDE 10 MEQ TABLET.SA PO SCH (10:24)
[2017-01-09] MEDS: MULTIVITAMIN TABLET PO SCH (10:24)
[2017-01-09] MEDS: PREDNISONE 20 MG TABLET PO SCH (10:24)
[2017-01-09] MEDS: NORMAL SALINE 10 ML SDV (SCHEDULED) IV SCH (10:25)
[2017-01-09] MEDS: FLUTICASONE/SALMETEROL DISKUS 250-50 MCG/DOSE IH SCH (10:26)
[2017-01-09] MEDS: LINEZOLID 600 MG TABLET PO SCH (10:28)
[2017-01-09] MEDS: ENOXAPARIN SODIUM INJ 40 MG/0.4 ML DISP.SYRIN SUBCUT SCH (10:29)
[2017-01-09] MEDS: CEFEPIME 2 GM/D5W RTU 2 GM/50 ML RTUPB IV SCH (10:29)
[2017-01-09] MEDS: TIOTROPIUM BROMIDE DPI 5 CAP/KIT (18 MCG/CAP) IH SCH (10:29)
[2017-01-09 10:39] VITALS: BP 109/73
--- NOTE | 2017-01-09 16:34 | PDOC DISCHARGE SUMMARY ---
General - Admit/Disc Date/PCP Admission Date/Primary Care Provider: 01/03/17 17:49 L[place]IS [place]GA Discharge Date: 01/09/17 - Discharge Diagnosis (1) Acute on chronic respiratory failure with hypoxemia Is this a current diagnosis for this admission?: Yes Summary: Secondary to acute COPD exacerbation. (2) COPD exacerbation Is this a current diagnosis for this admission?: Yes Summary: Continue with outpatient steroid taper. (3) Acute diastolic (congestive) heart failure Is this a current diagnosis for this admission?: Yes (4) Depression Is this a current diagnosis for this admission?: Yes (5) GERD (gastroesophageal reflux disease) Is this a current diagnosis for this admission?: Yes (6) Pseudomonal pneumonia Is this a current diagnosis for this admission?: Yes Summary: We will continue with IV cefepime until January 12. (7) Tachycardia Is this a current diagnosis for this admission?: Yes (8) UTI (urinary tract infection) Is this a current diagnosis for this admission?: Yes Summary: Growing enterococcus. It is sensitive to Zyvox. She has received 3 days here in the hospital. Patient is unable to afford the Zyvox that is $2400 from the pharmacy. Most likely 3 days of antibiotics is appropriate for this. Will receive no further treatment for the enterococcus urinary tract infection. - Additional Information Resuscitation Status: Full Code Discharge Diet: As Tolerated, Cardiac, Diabetic Discharge Activity: Activity As Tolerated, Balance Activity w/Rest Home Medications: Dexlansoprazole [Dexilant 30 mg Capsule] 30 mg PO DAILY 12/29/16 Fluticasone/Vilanterol [Breo Ellipta 100-25 Mcg INH] 1 puff IH DAILY 12/29/16 Montelukast Sodium [Singulair 10 mg Tablet] 10 mg PO QPM 12/29/16 Tiotropium [place] [Spiriva Handihaler 5 Cap/Kit (18 Mcg/Cap)] 1 puff IH DAILY 12/29/16 Venlafaxine HCl ER [Effexor Xr 75 mg Cap.sr] 2 cap PO DAILY 12/29/16 Furosemide [Lasix 20 mg Tablet] 10 mg PO DAILY #30 tablet 01/01/17 Guaifenesin [Mucinex Sr 600 mg Tablet.sa] 600 mg PO Q12 #20 tablet.sa 01/01/17 Haloperidol [Haldol 5 mg Tablet] 5 mg PO QHS #30 tablet 01/01/17 Heparin Sodium,Porcine [Heparin Flush 10 Unit/ml 5 ml Disp.syrg] 50 unit IV Q12H 01/03/17 Lactobacillus 3/Fos/Pantethine [Probiotic & Acidophilus Cap] 1 each PO DAILY Multivitamin [Multivitamins] 1 each PO DAILY 01/03/17 Vits A,C,E/Lutein/Minerals [Vision Formula with Lutein Tab] 1 each PO DAILY Linezolid [Zyvox 600 mg Tablet] 600 mg PO Q12@1100,2300 #10 tablet 01/08/17 Prednisone [Deltasone 20 mg Tablet] 40 mg PO ASDIR PRN #15 tablet 01/08/17 Cefepime 2 gm/D5w RTU [Maxipime RTU 2 gm-D5w 50 ml Premix Bag] 2 gm IV Q12 #7 rtupb 01/09/17 Levalbuterol HCl [Xopenex Neb 1.25 mg/3 ml Ampul] 1.25 mg NEB RTQ2HP PRN #120 vial.neb 01/09/17 Tobramycin in 0.225% Sod Chlor [Tobramycin 300 mg/5 ml Ampule] 5 ml NEB Q12 #60 ampul.neb 01/09/17 History of Present Illness History of Present Illness: SERGEY RIVERA is a 86 year old female who presented with shortness of breath. She is admitted for acute respiratory failure secondary to underlying pneumonia and congestive heart failure. The patient was recently discharged from the hospital for pseudomonal pneumonia and discharged to [facility]. Patient left and went home from there. Patient over the last several days had worsening dyspnea and was found to have congestive heart failure as the main cause. She has improved with BiPAP and Lasix. Hospital Course Hospital Course: Patient is admitted for congestive heart failure. The patient had recently been discharged to the hospital for treatment of pseudomonal pneumonia with IV cefepime. The patient has completed most of her 2 week course. Her last dose of cefepime will be on January 12. When she presented she was noted to have acute respiratory distress from congestive heart failure and was treated with IV Lasix and BiPAP. She also had an acute COPD exacerbation treated with BiPAP as well as steroids. This has improved and she had an echocardiogram that shows her to have diastolic congestive heart failure.Patient also has been getting tobramycin inhaled and will continue that until January 28. Physical Exam Vital Signs: Temp Pulse Resp BP Pulse Ox 98.3 F 97 14 109/73 100 01/09/17 10:38 01/09/17 10:38 01/09/17 10:38 01/09/17 10:38 01/09/17 10:38 Pulse Oximeter Continuous Start: 01/03/17 17: 51 Freq: Status: Discharge Document 01/05/17 19:45 SFL (Rec: 01/05/17 21:50 SFL [email or web address]) Pulse Oximetry Assessment Oxygen Saturation (92-100) 97 Oxygen Flow Rate (L/min) 4 Oxygen Delivery Method Nasal Cannula Equipment Usage Equipment in Use Continuous SpO2 Machine # 5 Intake & Output 01/08/17 01/09/17 01/10/17 06:59 06:59 06:59 Intake Total 2101 1493 Output Total 2800 1200 Balance -699 293 Weight 79.6 kg 78.3 kg General appearance: PRESENT: no acute distress Eye exam: PRESENT: conjunctiva pink. ABSENT: scleral icterus Ear exam: PRESENT: normal external ear exam Mouth exam: PRESENT: moist, tongue midline Neck exam: ABSENT: JVD Respiratory exam: PRESENT: clear to auscultation camelia. ABSENT: rales, rhonchi, wheezes Cardiovascular exam: PRESENT: RRR. ABSENT: diastolic murmur, rubs, systolic murmur GI/Abdominal exam: PRESENT: normal bowel sounds, soft. ABSENT: distended, guarding, mass, organolmegaly, rebound, tenderness Extremities exam: ABSENT: calf tenderness, clubbing, pedal edema Neurological exam: PRESENT: alert, awake, oriented to person, oriented to place , oriented to time, oriented to situation, CN II-XII grossly intact. ABSENT: motor sensory deficit Psychiatric exam: PRESENT: appropriate affect Skin exam: PRESENT: dry, intact, warm. ABSENT: cyanosis, rash Results Laboratory Results: 01/07/17 06:25 01/07/17 06:25 01/03/17 18:30 Blood Blood Culture - Final NO GROWTH IN 5 DAYS 01/03/17 19:10 Blood Blood Culture - Final NO GROWTH IN 5 DAYS 01/03/17 01/04/17 01/04/17 18:30 00:39 00:39 Creatine Kinase 63 CK-MB (CK-2) 1.66 Troponin I 0.032 0.045 01/04/17 01/04/17 06:42 06:42 Creatine Kinase 44 CK-MB (CK-2) 1.46 Troponin I 0.028 Impressions: Chest X-Ray 01/03/17 11:34 IMPRESSION: COPD. CHRONIC INTERSTITIAL CHANGES. NO ACUTE FINDINGS. Qualifiers PATEINT BEING DISCHARGED WITH ANY OF THE FOLLOWING DIAGNOSIS?: No, Heart Failure Plan Discharge Plan: Patient is discharged home with home health for IV antibiotics until January 12 with cefepime 2 g IV every 12. She will need routine PICC line care. Will also do inhaled tobramycin until January 28. Time Spent: Greater than 30 Minutes
== END 2017-01-09 11:10 | disposition home health service (06) | DRG 291 ==
LOC: ER 11:17 → EH 17:49 → UNDOADMIN 17:53 → EH 17:53 → 3N 20:30
PROVIDERS: ADMIT Family Medicine; ATTEND Family Medicine
DX: I50.31 Acute diastolic (congestive) heart failure (principal); J96.21 Acute and chronic respiratory failure with hypoxia; J15.1 Pneumonia due to Pseudomonas; J44.1 Chronic obstructive pulmonary disease with (acute) exacerbation; J98.11 Atelectasis; N30.00 Acute cystitis without hematuria; Z66 Do not resuscitate; R00.0 Tachycardia, unspecified; K21.9 Gastro-esophageal reflux disease without esophagitis; M19.90 Unspecified osteoarthritis, unspecified site; F32.9 Major depressive disorder, single episode, unspecified; B95.2 Enterococcus as the cause of diseases classified elsewhere; Z87.891 Personal history of nicotine dependence; Z79.51 Long term (current) use of inhaled steroids; Z79.52 Long term (current) use of systemic steroids; Z79.899 Other long term (current) drug therapy; Z99.81 Dependence on supplemental oxygen
CPT/HCPCS: 36415; 36592; 71020; 80048; 80053; 81001; 82550; 82553; 82803; 82962; 83605; 83735; 83880; 84484; 85025; 85610; 85730; 87040; 87086; 87088; 87186; 93005; 93010; 93306; 94660; 94667; 94668; 94762; 96374; 99285; J0456; J0692; J1642; J1650; J1815; J1940; J2020; J2920; J3490; J7060; J7512; J7620; J7685

== ENCOUNTER 2017-01-30 14:53 | Emergency (ER) | payer MEDICARE, MEDICAID ==
--- NOTE | 2017-01-30 15:14 | ER Document Report ---
ED Fall - General Stated Complaint: DIFFICULTY BREATHNG Time Seen by Provider: 01/30/17 15:14 Mode of Arrival: Medic Information source: Patient Notes: 86-year-old female to the emergency department chief complaint of shortness of breath. States that she has a long-standing history of COPD. Wears oxygen at all times. States that she fell earlier today and was at home by herself. Could not get up because she was too short of breath after crawling across the floor. Was able to call her help button and EMS arrived. Patient was transported. Patient states that she is always short of breath. Denies any pain at all. Has not had her breathing treatments since the fall and feels like she needs a breathing treatment. Otherwise denies any complaints other than chronic shortness of breath and cough. TRAVEL OUTSIDE OF THE [place] IN LAST 30 DAYS: No - Related data Allergies/Adverse Reactions: levofloxacin [From Levaquin] Allergy (Intermediate, Verified 12/29/16 11:06) ITCHING, MUSCLE PAIN Past Medical History - General Information source: Patient - Social History Smoking Status: Smoker,Current Status Unk Family History: Reviewed & Not Pertinent - Past Medical History Cardiac Medical History: Denies: Hx Coronary Artery Disease, Hx Heart Attack, Hx Hypertension Pulmonary Medical History: Reports: Hx COPD Denies: Hx Asthma, Hx Bronchitis, Hx Pneumonia Neurological Medical History: Denies: Hx Cerebrovascular Accident, Hx Seizures Renal/ Medical History: Denies: Hx Peritoneal Dialysis Musculoskeltal Medical History: Reports Hx Arthritis Psychiatric Medical History: Reports: Hx Depression Past Surgical History: Reports: Hx Orthopedic Surgery - bilateral rotator cuff, Hx Tubal Ligation - Immunizations Hx Diphtheria, Pertussis, Tetanus Vaccination: Yes Hx Pneumococcal Vaccination: 04/19/08 Review of Systems - Review of Systems Constitutional: No symptoms reported EENT: No symptoms reported Cardiovascular: No symptoms reported Respiratory: No symptoms reported, Cough, Short of breath Gastrointestinal: No symptoms reported Genitourinary: No symptoms reported Female Genitourinary: No symptoms reported Musculoskeletal: No symptoms reported, Other - No pain reported Skin: No symptoms reported Hematologic/Lymphatic: No symptoms reported Neurological/Psychological: No symptoms reported Physical Exam - Vital signs Vitals: Temp Pulse Resp BP Pulse Ox 98.2 F 108 H 26 H 138/87 H 94 01/30/17 15:00 01/30/17 15:00 01/30/17 15:00 01/30/17 15:00 01/30/17 15:00 Interpretation: Normal - General General appearance: Appears well, Alert - HEENT Head: Normocephalic, Atraumatic Eyes: Normal Pupils: PERRL - Respiratory Respiratory status: No respiratory distress Chest status: Nontender Breath sounds: Normal, Decreased air movement, Nonproductive cough, Wheezing Chest palpation: Normal - Cardiovascular Rhythm: Regular, Tachycardia Heart sounds: Normal auscultation Murmur: No Systolic murmur grade 1-6: 5 - Abdominal Inspection: Normal Distension: No distension Bowel sounds: Normal Tenderness: Nontender Organomegaly: No organomegaly - Back Back: Normal, Nontender - Extremities General upper extremity: Normal inspection, Nontender, Normal color, Normal ROM , Normal temperature General lower extremity: Normal inspection, Nontender, Normal color, Normal ROM , Normal temperature, Normal weight bearing. No: Alpesh's sign - Neurological Neuro grossly intact: Yes Cognition: Normal Orientation: AAOx4 [place] Coma Scale Eye Opening: Spontaneous [place] Coma Scale Verbal: Oriented [place] Coma Scale Motor: Obeys Commands Randal Coma Scale Total: 15 Speech: Normal Motor strength normal: LUE, RUE, LLE, RLE Sensory: Normal - Psychological Associated symptoms: Normal affect, Normal mood - Skin Skin Temperature: Warm - No obvious skin breakdown. No obvious bruising. No lacerations. Skin Moisture: Dry Skin Color: Normal Course - Re-evaluation Re-evalutation: 01/30/17 15:23 We will get chest x-ray, basic labs, breathing treatment and reassess. She denies falling and hitting her head. Denies any hip pain. Denies any other issues at this time other than shortness of breath which she reports as being her baseline. 01/30/17 17:40 Labs fairly unremarkable. Chest x-ray unremarkable. Patient is resting comfortably. Had long discussion with patient's daughter. Comfortable at this time discharging. I believe there is some anxiety involved with every time the daughter leaves the house. Gave some Xanax today and she seems to have tolerated that well. 01/30/17 17:41 Chest X-Ray 01/30/17 15:19 IMPRESSION: 1. COPD. No acute findings. 2. Interval removal of a previously demonstrated left upper extremity PICC Labs- All tests 24 hr 1001/30/17 01/30/17 16:40 16:40 16:40 WBC 9.2 RBC 4.34 Hgb 12.5 Hct 37.2 MCV 86 MCH 28.8 MCHC 33.6 RDW 15.0 H Plt Count 198 Seg Neutrophils % 70.0 Lymphocytes % 16.3 Monocytes % 11.8 Eosinophils % 1.5 Basophils % 0.4 Absolute Neutrophils 6.4 Absolute Lymphocytes 1.5 Absolute Monocytes 1.1 Absolute Eosinophils 0.1 Absolute Basophils 0.0 Sodium 142.2 Potassium 4.3 Chloride 102 Carbon Dioxide 31 H Anion Gap 9 BUN 10 Creatinine 0.71 Est GFR ( Amer) > 60 Est GFR (Non-Af Amer) > 60 Glucose 95 Calcium 9.6 Total Bilirubin 0.4 Direct Bilirubin 0.3 Indirect Bilirubin Not Reportable Neonat Total Bilirubin Not Reportable AST 33 ALT 41 Alkaline Phosphatase 103 Troponin I 0.022 Total Protein 6.7 Albumin 3.7 - Vital Signs Vital signs: Temp Pulse Resp BP Pulse Ox 98.2 F 108 H 26 H 138/87 H 94 01/30/17 15:00 01/30/17 15:00 01/30/17 15:00 01/30/17 15:00 01/30/17 15:00 - Laboratory Result Diagrams: 01/30/17 16:40 01/30/17 16:40 Laboratory results interpreted by me: 01/30/17 01/30/17 16:40 16:40 RDW 15.0 H Carbon Dioxide 31 H - EKG Interpretation by Me EKG shows normal: [place], Intervals, QRS Complexes, ST-T Waves Rate: Tachycardia When compared to previous EKG there are: No significant change Discharge - Discharge Clinical Impression: COPD without exacerbation Fall Qualifiers: Encounter type: initial encounter Qualified Code(s): W19.XXXA - Unspecified fall, initial encounter Condition: Good Disposition: HOME, SELF-CARE Additional Instructions: Chronic Obstructive Lung Disease You have chronic obstructive lung disease (COPD). The symptoms come from emphysema (damage to small airways, with trapping of air in large sacks in the lung) and chronic bronchitis (repeated infection and damage to larger airways). The cause is almost always cigarette smoking, although dust exposure, asthma, and infections contribute. You should avoid fumes, dust, and smoke (especially tobacco smoke). Your condition will flare from time to time. There is no cure, but the symptoms can be treated. Bronchodilators (asthma medicine) are often helpful. Antibiotics help when infection is present. When shortness of breath is severe, we may prescribe cortisone medication. If medicine doesn't help enough, we can arrange for you to have an oxygen tank at home. Notify your doctor at once if sputum becomes thick, foul, or bloody, if you develop a fever or chest pain, or if your shortness of breath worsens. Mechanical fall No obvious injuries were found today. If you begin to develop pain of your extremities, hip or any other area please inform your health care providers as x -rays may be needed. No x-rays were needed today. Anxiety If you continue to have anxiety and fears including depression or suicidal ideation please discuss this with your primary care provider or return to the emergency department for a mental health evaluation. You will be given a short prescription of some anxiolytic medications that you can take when feeling overwhelmed. Please inform your doctor of the new medications you received today. Prescriptions: Alprazolam 0.25 mg PO BID PRN #20 tablet PRN Reason: Anxiety
[2017-01-30] MEDS ORDERED: ALBUTEROL SULFATE 0.083% NEB 2.5 MG/3 ML AMPUL NEB ONE (15:20)
[2017-01-30] MEDS ORDERED: ALPRAZOLAM 0.25 MG TABLET PO ONE (16:04)
[2017-01-30 16:54] LABS: ABSOLUTE EOSINOPHILS # (AUTO) 0.1 10^3/uL (0.0-0.6); ABSOLUTE LYMPHOCYTES (AUTO) 1.5 10^3/uL (0.5-4.7); ABSOLUTE MONOCYTES (AUTO) 1.1 10^3/uL (0.1-1.4); ABSOLUTE NEUT (AUTO) 6.4 10^3/uL (1.7-8.2); BASOPHILS % (AUTO) 0.4 % (0-2); EOSINOPHILS % (AUTO) 1.5 % (0-6); HEMATOCRIT 37.2 % (36.0-47.0); HEMOGLOBIN 12.5 g/dL (12.0-15.5); HGB HCT DIFFERENCE 0.3; LYMPHOCYTES % (AUTO) 16.3 % (13-45); MEAN CORPUSCULAR HEMOGLOBIN 28.8 pg (27.0-33.4); MEAN CORPUSCULAR HGB CONC 33.6 g/dL (32.0-36.0); MEAN CORPUSCULAR VOLUME 86 fl (80-97); MONOCYTES % (AUTO) 11.8 % (3-13); RED BLOOD COUNT 4.34 10^6/uL (3.72-5.28); WHITE BLOOD COUNT 9.2 10^3/uL (4.0-10.5)
[2017-01-30 17:12] LABS: ALANINE AMINOTRANSFERASE 41 U/L (9-52); ALBUMIN 3.7 g/dL (3.5-5.0); ALKALINE PHOSPHATASE 103 U/L (38-126); ANION GAP 9 (5-19); ASPARTATE AMINO TRANSFERASE 33 U/L (14-36); BILIRUBIN,DIRECT 0.3 mg/dL (0.0-0.4); BILIRUBIN,TOTAL 0.4 mg/dL (0.2-1.3); BLOOD UREA NITROGEN 10 mg/dL (7-20); CALCIUM 9.6 mg/dL (8.4-10.2); CARBON DIOXIDE 31 mmol/L (22-30); CHLORIDE 102 mmol/L (98-107); CREATININE RESULT 0.71 mg/dL (0.52-1.25); GLUCOSE 95 mg/dL (75-110); POTASSIUM 4.3 mmol/L (3.6-5.0); SODIUM 142.2 mmol/L (137-145); TOTAL PROTEIN 6.7 g/dL (6.3-8.2)
--- NOTE | 2017-01-30 17:25 | EKG REPORT ---
SEVERITY:- DEFECTIVE ECG - SINUS TACHYCARDIA CONSIDER OLD ANTEROSEPTAL SC AND OLD INFERIOR SC. : Confirmed by: Philipp Xavier MD 30-Jan-2017 17:24:36
--- NOTE | 2017-01-30 17:34 | RADIOLOGY REPORT (SQ) ---
EXAM DESCRIPTION: CHEST PA/LAT COMPLETED DATE/TIME: 01/30/2017 5:16 pm REASON FOR STUDY: cough COMPARISON: 01/03/2017 NUMBER OF VIEWS: Two view. TECHNIQUE: Frontal and lateral radiographic views of the chest acquired. LIMITATIONS: None. FINDINGS: LUNGS AND PLEURA: Re- demonstration of increased interstitial markings, attenuated blood v essels, and relative flattening of the hemidiaphragms, consistent with COPD. No new focal consolidat ion. No pneumothorax. No pleural effusion. MEDIASTINUM AND HILAR STRUCTURES: No masses. No contour abnormalities. HEART AND VASCULAR STRUCTURES: Heart normal in size and contour. No evidence for failure. BONES: No acute findings. HARDWARE: The previously demonstrated left upper extremity PICC has been removed. OTHER: No other significant finding. IMPRESSION: 1. COPD. No acute findings. 2. Interval removal of a previously demonstrated left upper extremity PICC TECHNICAL DOCUMENTATION: JOB ID: [id number] [employer] All Rights Reserved
[2017-01-30 18:40] VITALS: BP 127/71
== END 2017-01-30 18:41 | disposition home or self-care (01) ==
LOC: ER 14:53
DX: J44.9 Chronic obstructive pulmonary disease, unspecified (principal); Z99.81 Dependence on supplemental oxygen; R06.02 Shortness of breath; R05 Cough; R00.0 Tachycardia, unspecified; Z91.81 History of falling; Z88.1 Allergy status to other antibiotic agents
CPT/HCPCS: 93005; 94640; 99285; 36415; 85025; 80053; 84484; 71020; 93010; A9270 ×2

== ENCOUNTER 2017-02-22 13:01 | Inpatient (IN) | payer MEDICARE, MEDICAID ==
--- NOTE | 2017-02-22 13:20 | ER Document Report ---
ED General - General Chief Complaint: Shortness Of Breath Stated Complaint: SHORTNESS OF BREATH Time Seen by Provider: 02/22/17 13:12 Mode of Arrival: Medic Information source: Relative Notes: This is an 86-year-old female with a history of oxygen dependent (4 L), COPD, CHF, Pseudomonas pneumonia, bronchiectasis. She is brought in by EMS for shortness of breath. the patient's daughter reports that the patient was hypoxic with an O2 sat at 83% while on oxygen. TRAVEL OUTSIDE OF THE [place] IN LAST 30 DAYS: No - HPI Onset: Yesterday Onset/Duration: Gradual Quality of pain: No pain Severity: None Pain Level: Denies Associated symptoms: Shortness of breath. denies: Chills, Fever Exacerbated by: Denies Relieved by: Denies Similar symptoms previously: Yes Recently seen / treated by doctor: Yes - Related Data Allergies/Adverse Reactions: levofloxacin [From Levaquin] Allergy (Intermediate, Verified 02/22/17 13:06) ITCHING, MUSCLE PAIN Home Medications: Current Home Medications Alprazolam [Xanax 0.25 mg Tablet] 0.25 mg PO Q12 02/22/17 [History] Dexlansoprazole [Dexilant 30 mg Capsule] 30 mg PO DAILY 02/22/17 [History] Furosemide [Lasix 20 mg Tablet] 10 mg PO DAILY 02/22/17 [History] Haloperidol [Haldol 5 mg Tablet] 5 mg PO QHS 02/22/17 [History] Venlafaxine HCl ER [Effexor Xr 75 mg Cap.sr] 150 mg PO DAILY 02/22/17 [History] Past Medical History - General Information source: Patient - Social History Smoking Status: Former Smoker Cigarette use (# per day): No Chew tobacco use (# tins/day): No Frequency of alcohol use: None Drug Abuse: None Lives with: Family Family History: Reviewed & Not Pertinent Patient has suicidal ideation: No Patient has homicidal ideation: No - Past Medical History Cardiac Medical History: Denies: Hx Coronary Artery Disease, Hx Heart Attack, Hx Hypertension Pulmonary Medical History: Reports: Hx COPD Denies: Hx Asthma, Hx Bronchitis, Hx Pneumonia Neurological Medical History: Denies: Hx Cerebrovascular Accident, Hx Seizures Renal/ Medical History: Denies: Hx Peritoneal Dialysis Musculoskeltal Medical History: Reports Hx Arthritis Psychiatric Medical History: Reports: Hx Depression Past Surgical History: Reports: Hx Orthopedic Surgery - bilateral rotator cuff, Hx Tubal Ligation - Immunizations Hx Diphtheria, Pertussis, Tetanus Vaccination: Yes Hx Pneumococcal Vaccination: 04/19/08 Review of Systems - Review of Systems Constitutional: denies: Chills, Fever EENT: No symptoms reported Cardiovascular: No symptoms reported Respiratory: See HPI Gastrointestinal: No symptoms reported Genitourinary: No symptoms reported Female Genitourinary: No symptoms reported Musculoskeletal: No symptoms reported Skin: No symptoms reported Hematologic/Lymphatic: No symptoms reported Neurological/Psychological: No symptoms reported Physical Exam - Vital signs Vitals: Temp Pulse Resp BP Pulse Ox 97.9 F 113 H 28 H 116/58 L 92 02/22/17 13:05 02/22/17 13:05 02/22/17 13:05 02/22/17 13:05 02/22/17 13:05 Notes: Physical exam: GENERAL: 86-year-old female, patient is alert, she does appear to be in respiratory distress. HEAD: Atraumatic, normocephalic. EYES: Pupils equal round and reactive to light, extraocular movements intact, sclera anicteric, conjunctiva are normal. ENT: TMs normal, nares patent, oropharynx clear without exudates. Moist mucous membranes. NECK: Normal range of motion, supple without obvious mass or JVD. LUNGS: Bilateral wheezing HEART: Regular rate and rhythm without murmurs, rubs or gallops. ABDOMEN: Soft, normoactive bowel sounds. No tenderness to palpation. No guarding, no rebound. No masses appreciated. EXTREMITIES: Normal range of motion, no pitting or edema. No clubbing or cyanosis. NEUROLOGICAL: Cranial nerves II through XII grossly intact. Normal speech, moving all extremities. PSYCH: Normal mood, normal affect. SKIN: Warm, Dry, normal turgor, no rashes or lesions noted. Course - Vital Signs Vital signs: Temp Pulse Resp BP Pulse Ox 97.8 F 108 H 18 142/76 H 98 02/26/17 12:40 02/26/17 12:40 02/26/17 12:40 02/26/17 12:40 02/26/17 12:40 - Laboratory Result Diagrams: 02/26/17 04:59 02/26/17 04:59 Laboratory results interpreted by me: 02/22/17 02/22/17 13:23 13:23 WBC 12.9 H RDW 15.8 H Seg Neutrophils % 80.7 H Lymphocytes % 8.4 L Absolute Neutrophils 10.4 H Carbon Dioxide 33 H Glucose 154 H - Diagnostic Test Radiology reviewed: Image reviewed, Reports reviewed - No obvious pneumonia Discharge - Discharge Clinical Impression: acute COPD exacerbation Condition: Poor Disposition: ADMITTED INPATIENT Admitting Provider: Hospitalist - COMPUTER NETWORK SUPPORT SPECIALIST Anjana/Dr Hahn Unit Admitted: Telemetry
[2017-02-22] MEDS ORDERED: IPRATROPIUM/ALBUTEROL 0.5-2.5 MG/3 ML AMPUL NEB ONE ×2 (13:25→14:34)
[2017-02-22] MEDS ORDERED: METHYLPREDNISOLONE INJ 125 MG/2 ML SDV IV ONE (13:25)
[2017-02-22 13:49] LABS: ABSOLUTE EOSINOPHILS # (AUTO) 0.1 10^3/uL (0.0-0.6); ABSOLUTE LYMPHOCYTES (AUTO) 1.1 10^3/uL (0.5-4.7); ABSOLUTE MONOCYTES (AUTO) 1.3 10^3/uL (0.1-1.4); ABSOLUTE NEUT (AUTO) 10.4 10^3/uL (1.7-8.2); BASOPHILS % (AUTO) 0.3 % (0-2); EOSINOPHILS % (AUTO) 0.7 % (0-6); HEMATOCRIT 37.4 % (36.0-47.0); HEMOGLOBIN 12.5 g/dL (12.0-15.5); HGB HCT DIFFERENCE 0.1; LYMPHOCYTES % (AUTO) 8.4 % (13-45); MEAN CORPUSCULAR HEMOGLOBIN 29.1 pg (27.0-33.4); MEAN CORPUSCULAR HGB CONC 33.4 g/dL (32.0-36.0); MEAN CORPUSCULAR VOLUME 87 fl (80-97); MONOCYTES % (AUTO) 9.9 % (3-13); RED BLOOD COUNT 4.29 10^6/uL (3.72-5.28); RED CELL DISTRIBUTION WIDTH 15.8 % (11.5-14.0); SEGMENTED NEUTROPHILS % (AUTO) 80.7 % (42-78); WHITE BLOOD COUNT 12.9 10^3/uL (4.0-10.5)
--- NOTE | 2017-02-22 14:07 | EKG REPORT ---
SEVERITY:- ABNORMAL ECG - SINUS TACHYCARDIA CONSIDER ANTEROSEPTAL INFARCT ABNORMAL T, CONSIDER ISCHEMIA, LATERAL LEADS (PROBABLE) SEVERE BASELINE ARTEFACTS. : Confirmed by: Philipp Xavier MD 22-Feb-2017 14:06:33
[2017-02-22 14:12] LABS: ALANINE AMINOTRANSFERASE 33 U/L (9-52); ALBUMIN 3.9 g/dL (3.5-5.0); ALKALINE PHOSPHATASE 102 U/L (38-126); ANION GAP 11 (5-19); ASPARTATE AMINO TRANSFERASE 29 U/L (14-36); BILIRUBIN,DIRECT 0.4 mg/dL (0.0-0.4); BILIRUBIN,TOTAL 0.4 mg/dL (0.2-1.3); BLOOD UREA NITROGEN 7 mg/dL (7-20); CALCIUM 9.4 mg/dL (8.4-10.2); CARBON DIOXIDE 33 mmol/L (22-30); CHLORIDE 98 mmol/L (98-107); CREATINE KINASE 37 U/L (30-135); CREATININE RESULT 0.58 mg/dL (0.52-1.25); GLUCOSE 154 mg/dL (75-110); POTASSIUM 4.4 mmol/L (3.6-5.0); SODIUM 141.8 mmol/L (137-145)
[2017-02-22 14:23] LABS: CREATINE KINASE MB 1.35 ng/mL (<4.55); TROPONIN I 0.02 ng/mL
--- NOTE | 2017-02-22 14:42 | RADIOLOGY REPORT (SQ) ---
EXAM DESCRIPTION: CHEST SINGLE VIEW COMPLETED DATE/TIME: 02/22/2017 2:19 pm REASON FOR STUDY: sob COMPARISON: 01/30/2017 EXAM PARAMETERS: NUMBER OF VIEWS: One view. TECHNIQUE: Single frontal radiographic view of the chest acquired. RADIATION DOSE: NA LIMITATIONS: None. FINDINGS: LUNGS AND PLEURA: Chronic interstitial changes are present. The lungs are hyperexpanded w ith flattening of the diaphragms. There is no infiltrate or effusion. MEDIASTINUM AND HILAR STRUCTURES: No masses. Contour normal. HEART AND VASCULAR STRUCTURES: Heart normal in size. Normal vasculature. BONES: No acute findings. HARDWARE: None in the chest. OTHER: No other significant finding. IMPRESSION: Chronic lung changes with no acute cardiopulmonary disease. TECHNICAL DOCUMENTATION: JOB ID: [id number] [employer]- All Rights Reserved
[2017-02-22] MEDS ORDERED: GUAIFENESIN SYRP 200 MG/10 ML UDC PO PRN (15:10)
[2017-02-22] MEDS ORDERED: GENTAMICIN SULFATE 0 MG in DEXTROSE 5%-WATER 100 ML IV NR (15:15)
[2017-02-22] MEDS ORDERED: (PENDING PHARMACY ID) (Fluticasone/Vilanterol [Breo Ellipta 100-25 Mcg Inh] 1 PUFF) IH SCH (15:30)
[2017-02-22] MEDS ORDERED: ALPRAZOLAM 0.25 MG TABLET PO ONE (16:00)
[2017-02-22] MEDS ORDERED: FAMOTIDINE INJ/PF 20 MG/2 ML SDV IV ONE (16:00)
[2017-02-22 16:15] LABS: ARTERIAL BLOOD BASE EXCESS 4.2 mmol/L; ARTERIAL BLOOD O2 SATURATION 98.3 % (94-98)
[2017-02-22] MEDS ORDERED: AZTREONAM 1 GM in DEXTROSE 5%-WATER 50 ML IV ONE (16:30)
[2017-02-22] MEDS ORDERED: TIOTROPIUM BROMIDE DPI 5 CAP/KIT (18 MCG/CAP) IH ONE (16:30)
[2017-02-22] MEDS ORDERED: GUAIFENESIN 600 MG TABLET.SA PO ONE (16:30)
[2017-02-22] MEDS ORDERED: VENLAFAXINE HCL 75 MG CAP.SR.24H PO ONE (16:30)
--- NOTE | 2017-02-22 16:37 | PDOC H&P ---
History of Present Illness Admission Date/PCP: 02/22/17 15:38 History of Present Illness: SERGEY RIVERA is a 86 year old female came to the emergency room with increased shortness of breath fatigue weakness difficulty catching her breath. Patient has past medical history of COPD with multiple hospitalizations with exacerbation, CHF with multiple hospitalizations for exacerbations, pneumonia, weakness fatigue, anxiety. Past medical history include respiratory tract infection chronic, GERD arthritis, depression, anemia, patient is a former smoker, denies any current smoking or alcohol use. Patient states she is allergic to Levaquin causes her to itch. Patient is requesting anything that will make her breathe better at this point so I have ordered her CPAP for her acute respiratory distress to be placed in the ER prior to being admitted. Once the patient is stable she may be transferred to [facility]. Will place patient on telemetry. Past Medical History Cardiac Medical History: Reports: Congestive Heart Failure, Coronary Artery Disease, Hyperlipidema, Hypertension Denies: Myocardial Infarction Pulmonary Medical History: Reports: Asthma, Bronchitis, Chronic Obstructive Pulmonary Disease (COPD), Pneumonia, Respiratory Failure EENT Medical History: Reports: Cataracts Neurological Medical History: Denies: Seizures Musculoskeltal Medical History: Reports: Arthritis Psychiatric Medical History: Reports: Depression Hematology: Denies: Anemia Past Surgical History Past Surgical History: Reports: Orthopedic Surgery - bilateral rotator cuff, Tubal Ligation Social History Smoking Status: Unknown if Ever Smoked Frequency of Alcohol Use: None Hx Recreational Drug Use: No Drugs: None Hx Prescription Drug Abuse: No Family History Family History: Reviewed & Not Pertinent, Arthritis Parental Family History Reviewed: No Children Family History Reviewed: NA Sibling(s) Family History Reviewed.: NA Medication/Allergy Home Medications: Alprazolam [Xanax 0.25 mg Tablet] 0.25 mg PO Q12 02/22/17 Dexlansoprazole [Dexilant 30 mg Capsule] 30 mg PO DAILY 02/22/17 Fluticasone/Vilanterol [Breo Ellipta 100-25 Mcg INH] 1 puff IH Q12 02/22/17 Furosemide [Lasix 20 mg Tablet] 10 mg PO DAILY 02/22/17 Haloperidol [Haldol 5 mg Tablet] 5 mg PO QHS 02/22/17 Montelukast Sodium [Singulair 10 mg Tablet] 10 mg PO QPM 02/22/17 Tiotropium [place] [Spiriva Handihaler 18 mcg/dose (30 Dose)] 1 cap IH DAILY 10/03 Venlafaxine HCl ER [Effexor Xr 75 mg Cap.sr] 150 mg PO DAILY 02/22/17 Allergies/Adverse Reactions: levofloxacin [From Levaquin] Allergy (Intermediate, Verified 02/22/17 13:06) ITCHING, MUSCLE PAIN Review of Systems Constitutional: PRESENT: as per HPI, fatigue, weakness. ABSENT: chills, fever(s ), headache(s), weight gain, weight loss Eyes: ABSENT: visual disturbances Ears: ABSENT: hearing changes Cardiovascular: ABSENT: chest pain, dyspnea on exertion, edema, orthropnea, palpitations Respiratory: PRESENT: as per HPI, cough, dyspnea. ABSENT: hemoptysis, sputum Gastrointestinal: ABSENT: abdominal pain, constipation, diarrhea, hematemesis, hematochezia, nausea, vomiting Genitourinary: PRESENT: as per HPI. ABSENT: dysuria, hematuria Musculoskeletal: ABSENT: joint swelling Integumentary: ABSENT: rash, wounds Neurological: PRESENT: as per HPI. ABSENT: abnormal gait, abnormal speech, confusion, dizziness, focal weakness, syncope Psychiatric: PRESENT: as per HPI. ABSENT: anxiety, depression, homidical ideation, suicidal ideation Endocrine: ABSENT: cold intolerance, heat intolerance, polydipsia, polyuria Hematologic/Lymphatic: ABSENT: easy bleeding, easy bruising Allergic/Immunologic: PRESENT: as per HPI Physical Exam Vital Signs: Temp Pulse Resp BP Pulse Ox 97.9 F 113 H 32 H 158/124 H 96 02/22/17 13:05 02/22/17 13:05 02/22/17 15:28 02/22/17 14:45 02/22/17 15:28 General appearance: PRESENT: disheveled, obese, severe distress, well-developed , well-nourished, other Head exam: PRESENT: atraumatic, normocephalic Eye exam: PRESENT: conjunctiva pink, EOMI, PERRLA. ABSENT: scleral icterus Ear exam: PRESENT: normal external ear exam Mouth exam: PRESENT: moist, tongue midline Neck exam: ABSENT: carotid bruit, JVD, lymphadenopathy, thyromegaly Respiratory exam: PRESENT: accessory muscle use, decreased breath sounds, prolonged expiratory phas, rales, rhonchi, tachypnea, wheezes. ABSENT: unlabored Cardiovascular exam: PRESENT: RRR. ABSENT: diastolic murmur, rubs, systolic murmur Pulses: PRESENT: normal dorsalis pedis pul Vascular exam: PRESENT: normal capillary refill GI/Abdominal exam: PRESENT: normal bowel sounds, soft. ABSENT: distended, guarding, mass, organolmegaly, rebound, tenderness Rectal exam: PRESENT: deferred Extremities exam: PRESENT: full ROM. ABSENT: calf tenderness, clubbing, pedal edema Musculoskeletal exam: PRESENT: ambulatory Neurological exam: PRESENT: alert, altered, awake, oriented to person, oriented to place, oriented to situation, CN II-XII grossly intact. ABSENT: oriented to time, motor sensory deficit Psychiatric exam: PRESENT: agitated, anxious, normal mood. ABSENT: homicidal ideation, suicidal ideation Focused psych exam: PRESENT: psychomotor agitation Skin exam: PRESENT: dry, intact, warm. ABSENT: cyanosis, rash Results Laboratory Results: 02/22/17 16:00 Carbonic Acid 1.50 H HCO3/H2CO3 Ratio 19:1 ABG pH 7.40 ABG pCO2 49.8 H ABG pO2 119.5 H ABG HCO3 29.9 H ABG O2 Saturation 98.3 H ABG Base Excess 4.2 FiO2 45% Impressions: Chest X-Ray 02/22/17 13:24 IMPRESSION: Chronic lung changes with no acute cardiopulmonary disease. Assessment & Plan - Diagnosis (2) Acute on chronic respiratory failure with hypoxemia Is this a current diagnosis for this admission?: Yes Plan: Place patient on BiPAP for acute respiratory failure patient appears that she is wearing out fast. Patient's lower extremities are quite cool to touch but she is very clammy complaint of being very hot (3) COPD exacerbation Plan: Suspect this patient has end-stage COPD probably would benefit from more palliative/hospice referral will have a pulmonology consult (4) Pseudomonal pneumonia Qualifiers: Laterality: unspecified laterality Lung location: unspecified part of lung Qualified Code(s): J15.1 - Pneumonia due to Pseudomonas Is this a current diagnosis for this admission?: Yes Plan: Patient will be treated with antibiotics, steroids, bronchodilators. (5) Shortness of breath Is this a current diagnosis for this admission?: Yes Plan: Patient will be placed on BiPAP for breathing. Will ask staff nurse to get patient a fan for air hunger (6) Wheezing Is this a current diagnosis for this admission?: Yes - Inpatient Certification Based on my medical assessment, after consideration of the patient's comorbidities, presenting symptoms, or acuity I expect that the services needed warrant INPATIENT care.: Yes I certify that my determination is in accordance with my understanding of Medicare's requirements for reasonable and necessary INPATIENT services [42 CFR 412.3e].: Yes Medical Necessity: Failure to Improve With Outpatient Therapy, Need for Nebulizer Therapy and Monitoring of Response, Need for IV Antibiotics, Risk of Complication if Not Cared For in Hospital
[2017-02-22] MEDS ORDERED: ENOXAPARIN SODIUM INJ 30 MG/0.3 ML DISP.SYRIN SUBCUT ONE (17:00)
[2017-02-22] MEDS ORDERED: TUBERCULIN,PURIF.PROT.DERIV. 5 TU/0.1 ML TEST 1 ML VIAL ID ONE (17:00)
[2017-02-22] MEDS: MONTELUKAST SODIUM 10 MG TABLET PO SCH (19:29)
[2017-02-22] MEDS: CEFEPIME 2 GM/D5W RTU 2 GM/50 ML RTUPB IV SCH (19:30)
[2017-02-22] MEDS: GENTAMICIN SULFATE 120 MG in DEXTROSE 5%-WATER 100 ML IV SCH (20:41)
[2017-02-22 21:33] LABS: APPEARANCE,URINE SLIGHTLY-CLOUDY; BILIRUBIN,URINE NEGATIVE (NEGATIVE); GLUCOSE, URINE 150 mg/dL (NEGATIVE); KETONES,URINE TRACE mg/dL (NEGATIVE); LEUKOCYTE ESTERASE,URINE SMALL (NEGATIVE); NITRITE,URINE NEGATIVE (NEGATIVE); PROTEIN,URINE NEGATIVE (NEGATIVE); URINE SPECIFIC GRAVITY 1.011; UROBILINOGEN,URINE NEGATIVE mg/dL (<2.0)
[2017-02-22] MEDS: AZTREONAM 1 GM in DEXTROSE 5%-WATER 50 ML IV SCH (22:00)
[2017-02-22] MEDS ORDERED: HALOPERIDOL 5 MG TABLET PO SCH (22:00)
[2017-02-22] MEDS: METHYLPREDNISOLONE INJ 40 MG/1 ML SDV IV SCH (22:00)
[2017-02-23] MEDS: LEVALBUTEROL HCL NEB 0.63 MG/3 ML AMPUL NEB PRN ×5 (02:06→20:29)
[2017-02-23] MEDS ORDERED: FAMOTIDINE INJ/PF 20 MG/2 ML SDV IV SCH (06:00)
[2017-02-23] MEDS ORDERED: ALPRAZOLAM 0.25 MG TABLET PO SCH (06:00)
[2017-02-23] MEDS: METHYLPREDNISOLONE INJ 40 MG/1 ML SDV IV SCH ×3 (06:05→21:15)
[2017-02-23 06:06] LABS: ABSOLUTE LYMPHOCYTES (AUTO) 1.2 10^3/uL (0.5-4.7); ABSOLUTE MONOCYTES (AUTO) 0.8 10^3/uL (0.1-1.4); ABSOLUTE NEUT (AUTO) 11.9 10^3/uL (1.7-8.2); BASOPHILS % (AUTO) 0.2 % (0-2); HEMATOCRIT 37.9 % (36.0-47.0); HEMOGLOBIN 12.6 g/dL (12.0-15.5); HGB HCT DIFFERENCE -0.1; LYMPHOCYTES % (AUTO) 8.7 % (13-45); MEAN CORPUSCULAR HEMOGLOBIN 28.8 pg (27.0-33.4); MEAN CORPUSCULAR HGB CONC 33.1 g/dL (32.0-36.0); MEAN CORPUSCULAR VOLUME 87 fl (80-97); MONOCYTES % (AUTO) 5.7 % (3-13); RED BLOOD COUNT 4.36 10^6/uL (3.72-5.28); RED CELL DISTRIBUTION WIDTH 15.5 % (11.5-14.0); SEGMENTED NEUTROPHILS % (AUTO) 85.4 % (42-78); WHITE BLOOD COUNT 13.9 10^3/uL (4.0-10.5)
[2017-02-23] MEDS: AZTREONAM 1 GM in DEXTROSE 5%-WATER 50 ML IV SCH (06:06)
[2017-02-23] MEDS: CEFEPIME 2 GM/D5W RTU 2 GM/50 ML RTUPB IV SCH ×2 (06:06→17:24)
[2017-02-23 06:33] LABS: ALANINE AMINOTRANSFERASE 36 U/L (9-52); ALBUMIN 4.4 g/dL (3.5-5.0); ALKALINE PHOSPHATASE 117 U/L (38-126); ANION GAP 15 (5-19); ASPARTATE AMINO TRANSFERASE 28 U/L (14-36); BILIRUBIN,DIRECT 0.4 mg/dL (0.0-0.4); BILIRUBIN,TOTAL 0.5 mg/dL (0.2-1.3); BLOOD UREA NITROGEN 12 mg/dL (7-20); CALCIUM 9.5 mg/dL (8.4-10.2); CARBON DIOXIDE 27 mmol/L (22-30); CHLORIDE 99 mmol/L (98-107); CREATININE RESULT 0.61 mg/dL (0.52-1.25); GLUCOSE 174 mg/dL (75-110); POTASSIUM 4.8 mmol/L (3.6-5.0); SODIUM 140.6 mmol/L (137-145); TOTAL PROTEIN 7.4 g/dL (6.3-8.2)
[2017-02-23] MEDS: GUAIFENESIN 600 MG TABLET.SA PO SCH ×2 (07:51→17:24)
[2017-02-23] MEDS ORDERED: VENLAFAXINE HCL 75 MG CAP.SR.24H PO SCH (10:00)
[2017-02-23] MEDS ORDERED: ALPRAZOLAM 0.25 MG TABLET PO PRN (10:00)
[2017-02-23] MEDS ORDERED: (PENDING PHARMACY ID) (Dexlansoprazole [Dexilant 30 Mg Capsule] 30 MG) PO SCH (10:00)
[2017-02-23] MEDS ORDERED: LORAZEPAM INJ 2 MG/1 ML VIAL IV ONE (10:07)
--- NOTE | 2017-02-23 10:31 | PDOC CONSULTATION ---
Consultation Consult Date: 02/23/17 Attending physician:: ALEXA TAYLOR Consult reason:: Acute on chronic respiratory failure History of Present Illness Admission Date/PCP: 02/22/17 15:11 History of Present Illness: SERGEY RIVERA is a 86 year old female well-known to [facility].She came to the emergency room with increased shortness of breath.Patient has past medical history of COPD with multiple hospitalizations with exacerbation, CHF At the moment patient somewhat confused and not able to relate events with accuracy. She currently has BiPAP machine in the room but she is not using it and appears to be confused and tachypnea. Place the BiPAP machine on her as she was tachypneic and says she was uncomfortable was subsequently switched to a VATS respiratory rate decreased somewhat and her comfort level is slightly improved. Past Medical History Cardiac Medical History: Reports: Congestive Heart Failure, Coronary Artery Disease, Hyperlipidema, Hypertension Denies: Myocardial Infarction Pulmonary Medical History: Reports: Asthma, Bronchitis, Chronic Obstructive Pulmonary Disease (COPD), Pneumonia, Respiratory Failure EENT Medical History: Reports: Cataracts Neurological Medical History: Denies: Seizures Musculoskeltal Medical History: Reports: Arthritis Psychiatric Medical History: Reports: Depression Hematology: Denies: Anemia Past Surgical History Past Surgical History: Reports: Orthopedic Surgery - bilateral rotator cuff, Tubal Ligation Social History Information Source: Dr. Love, [facility] Records Smoking Status: Former Smoker Passive smoke exposure as: Both Frequency of Alcohol Use: None Hx Recreational Drug Use: No Drugs: None Hx Prescription Drug Abuse: No Do you have pets?: No Have you had any respiratory illnesses as a child?: No Have you been exposed to any sick contacts recently?: No Have you had any recent respiratory illnesses?: No Have you travelled outside of [place] in the past 12 months?: No - Advance Directive Resuscitation Status: Full Code Family History Family History: Reviewed & Not Pertinent, Arthritis Parental Family History Reviewed: No Children Family History Reviewed: No Sibling(s) Family History Reviewed.: No Medication/Allergy Home Medications: Alprazolam [Xanax 0.25 mg Tablet] 0.25 mg PO Q12 02/22/17 Dexlansoprazole [Dexilant 30 mg Capsule] 30 mg PO DAILY 02/22/17 Fluticasone/Vilanterol [Breo Ellipta 100-25 Mcg INH] 1 puff IH Q12 02/22/17 Furosemide [Lasix 20 mg Tablet] 10 mg PO DAILY 02/22/17 Haloperidol [Haldol 5 mg Tablet] 5 mg PO QHS 02/22/17 Montelukast Sodium [Singulair 10 mg Tablet] 10 mg PO QPM 02/22/17 Tiotropium [place] [Spiriva Handihaler 18 mcg/dose (30 Dose)] 1 cap IH DAILY 10/03 Venlafaxine HCl ER [Effexor Xr 75 mg Cap.sr] 150 mg PO DAILY 02/22/17 Allergies/Adverse Reactions: levofloxacin [From Levaquin] Allergy (Intermediate, Verified 02/22/17 13:06) ITCHING, MUSCLE PAIN Review of Systems ROS unobtainable: Due to mental status Physical Exam Vital Signs: Temp Pulse Resp BP Pulse Ox 97.8 F 105 H 22 H 158/75 H 98 02/23/17 07:47 02/23/17 07:50 02/23/17 07:50 02/23/17 07:47 02/23/17 07:50 Intake & Output 02/22/17 02/23/17 02/24/17 06:59 06:59 06:59 Intake Total 160 Balance 160 Weight 77 kg General appearance: PRESENT: disheveled, mild distress, obese, well-developed Head exam: PRESENT: atraumatic, normocephalic Eye exam: PRESENT: conjunctiva pale, EOMI Mouth exam: PRESENT: dry mucosa, neck supple, tongue midline Neck exam: ABSENT: carotid bruit, JVD, lymphadenopathy, thyromegaly Respiratory exam: PRESENT: decreased breath sounds, prolonged expiratory phas, rhonchi, symmetrical, tachypnea, unlabored, wheezes. ABSENT: accessory muscle use, chest wall tenderness, clear to auscultation camelia, crackles, rales, retraction, stridor Cardiovascular exam: PRESENT: RRR, +S1, +S2 Pulses: PRESENT: normal radial pulses GI/Abdominal exam: PRESENT: normal bowel sounds, soft. ABSENT: distended, guarding, mass, organolmegaly, rebound, tenderness Extremities exam: ABSENT: calf tenderness, clubbing, joint swelling, pedal edema , tenderness Musculoskeletal exam: ABSENT: deformity, dislocation, tenderness Neurological exam: PRESENT: altered, awake Psychiatric exam: PRESENT: anxious Skin exam: PRESENT: dry, warm Results Laboratory Results: 02/23/17 05:30 02/23/17 05:30 02/22/17 02/22/17 02/23/17 16:00 21:04 05:30 WBC 13.9 H RBC 4.36 Hgb 12.6 Hct 37.9 MCV 87 MCH 28.8 MCHC 33.1 RDW 15.5 H Plt Count 282 Seg Neutrophils % 85.4 H Lymphocytes % 8.7 L Monocytes % 5.7 Eosinophils % 0.0 Basophils % 0.2 Absolute Neutrophils 11.9 H Absolute Lymphocytes 1.2 Absolute Monocytes 0.8 Absolute Eosinophils 0.0 Absolute Basophils 0.0 Carbonic Acid 1.50 H HCO3/H2CO3 Ratio 19:1 ABG pH 7.40 ABG pCO2 49.8 H ABG pO2 119.5 H ABG HCO3 29.9 H ABG O2 Saturation 98.3 H ABG Base Excess 4.2 FiO2 45% Sodium Potassium Chloride Carbon Dioxide Anion Gap BUN Creatinine Est GFR ( Amer) Est GFR (Non-Af Amer) Glucose Calcium Total Bilirubin AST ALT Alkaline Phosphatase Total Protein Albumin Urine Color YELLOW Urine Appearance SLIGHTLY-CLOUDY Urine pH 6.0 Ur Specific [place] 1.011 Urine Protein NEGATIVE Urine Glucose (UA) 150 H Urine Ketones TRACE H Urine Blood MODERATE H Urine Nitrite NEGATIVE Ur Leukocyte Esterase SMALL H Urine WBC (Auto) 23 Urine RBC (Auto) 22 02/23/17 05:30 WBC RBC Hgb Hct MCV MCH MCHC RDW Plt Count Seg Neutrophils % Lymphocytes % Monocytes % Eosinophils % Basophils % Absolute Neutrophils Absolute Lymphocytes Absolute Monocytes Absolute Eosinophils Absolute Basophils Carbonic Acid HCO3/H2CO3 Ratio ABG pH ABG pCO2 ABG pO2 ABG HCO3 ABG O2 Saturation ABG Base Excess FiO2 Sodium 140.6 Potassium 4.8 Chloride 99 Carbon Dioxide 27 Anion Gap 15 BUN 12 Creatinine 0.61 Est GFR ( Amer) > 60 Est GFR (Non-Af Amer) > 60 Glucose 174 H Calcium 9.5 Total Bilirubin 0.5 AST 28 ALT 36 Alkaline Phosphatase 117 Total Protein 7.4 Albumin 4.4 Urine Color Urine Appearance Urine pH Ur Specific [place] Urine Protein Urine Glucose (UA) Urine Ketones Urine Blood Urine Nitrite Ur Leukocyte Esterase Urine WBC (Auto) Urine RBC (Auto) 02/22/17 19:57 Troponin I 0.021 Impressions: Chest X-Ray 02/22/17 13:24 IMPRESSION: Chronic lung changes with no acute cardiopulmonary disease. Assessment & Plan - Diagnosis (1) Acute on chronic respiratory failure with hypoxemia Is this a current diagnosis for this admission?: Yes Plan: Labs- All tests 24 hr 02/22/17 02/22/17 02/23/17 13:23 16:00 05:30 WBC 12.9 H 13.9 H Seg Neutrophils % 85.4 H Lymphocytes % 8.7 L Monocytes % 5.7 Eosinophils % 0.0 Basophils % 0.2 ABG pH 7.40 ABG pCO2 49.8 H ABG pO2 119.5 H FiO2 45% Continue current antibiotic therapy had addition of Daliresp noninvasive positive pressure ventilation changed from BiPAP to AVAPS (2) COPD exacerbation Is this a current diagnosis for this admission?: Yes Plan: Generic Name Dose Route Start Last Admin Trade Name Freq PRN Reason Stop Dose Admin Levalbuterol HCl 0.63 mg 02/22/17 15:10 02/23/17 07:50 Xopenex Neb 0.63 Mg/3 Ml Ampul NEB 03/24/17 15:09 0.63 mg [id number] PRN FOR WHEEZING Guaifenesin 600 mg 02/23/17 06:00 02/23/17 07:51 Mucinex Sr 600 Mg Tablet.Sa PO 03/25/17 05:59 600 mg Q12A MAEGAN Patient Own Medication 1 puff 02/22/17 15:30 Fluticasone/Vilanterol [Breo Ellipta 100-25 Mcg Inh] IH 03/24/17 15:29 .Q12 MAEGAN Methylprednisolone Sodium Succinate 40 mg 02/22/17 22:00 02/23/17 06:05 Solu-Medrol Inj/Pf 40 Mg/1 Ml Sdv IV 03/24/17 21:59 40 mg Q8 MAEGAN Tiotropium [place] 1 cap 02/23/17 10:00 Spiriva Handihaler 5 Cap/Kit (18 Mcg/Cap) IH 03/25/17 09:59 DAILY MAEGAN Roflumilast 500 mcg 02/23/17 10:00 Daliresp 500 Mcg Tablet PO 03/25/17 09:59 DAILY MAEGAN Addition of Daliresp otherwise continue current therapy as above (3) GERD (gastroesophageal reflux disease) Qualifiers: Esophagitis presence: esophagitis presence not specified Qualified Code(s) : K21.9 - Gastro-esophageal reflux disease without esophagitis Is this a current diagnosis for this admission?: Yes Plan: Continue PPI consider elevation head of bed (4) UTI (urinary tract infection) Qualifiers: Urinary tract infection type: acute cystitis Is this a current diagnosis for this admission?: Yes Plan: Labs- All tests 24 hr 02/22/17 21:04 Urine Color YELLOW Urine Appearance SLIGHTLY-CLOUDY Urine pH 6.0 Ur Specific [place] 1.011 Urine Protein NEGATIVE Urine Glucose (UA) 150 H Urine Ketones TRACE H Urine Blood MODERATE H Urine Nitrite NEGATIVE Ur Leukocyte Esterase SMALL H Urine WBC (Auto) 23 Urine RBC (Auto) 22 U Hyaline Cast (Auto) 1 Urine Bacteria (Auto) TRACE Urine Ascorbic Acid 40 H 02/22/17 21:04 Urine Culture - Preliminary Clean Catch Midstream NO GROWTH IN 1 DAY adjust antibiotic therapy as dictated by culture results
[2017-02-23] MEDS: ENOXAPARIN SODIUM INJ 30 MG/0.3 ML DISP.SYRIN SUBCUT SCH (10:49)
[2017-02-23] MEDS: ROFLUMILAST 500 MCG TABLET PO SCH (10:50)
[2017-02-23] MEDS: LANSOPRAZOLE 15 MG TAB.RAP.DR PO SCH (10:50)
[2017-02-23] MEDS: TIOTROPIUM BROMIDE DPI 5 CAP/KIT (18 MCG/CAP) IH SCH (10:51)
--- NOTE | 2017-02-23 12:12 | PDOC PROGRESS REPORT ---
Subjective Progress Note for:: 02/23/17 Subjective:: Patient is seen on morning rounds as a follow-up on COPD exacerbation. Upon entering the room she is found to be in acute respiratory distress. She was on room air having removed her BiPAP machine herself and struggling to replace it. She expressed significant anxiety with having the mask strapped in place secondary to a sense of claustrophobia and drowning. She was coached to have pursed lip breathing while holding the mask in place until her respirations and anxiety, enough to allow the mass to be strapped on. She stated that she slept well overnight having 3 consecutive hours of good sleep, which she states is the first sleep she has had in over 36 hours. She denies fever, chills, cough, chest pain. She had a history of anxiety and asked that her medications be adjusted to a higher and more frequent dose as she is having increased anxiety and panic attacks with a BiPAP machine. She had no other questions or concerns at that time. I was called back to the room approximately 40 minutes later by her nurse. During rounding the nurse found the patient cutting her hand with her butter knife. The patient told the nurse that she was attempting to commit suicide. The patient stated that she would "keep cutting in places until she got right." The patient expressed to me that she was 86 years old and has lived a good life but did not want to from suffocation. She stated that she has "a lot of family to keep me here, but that they don't understand what its like to not breath." The patient agrees to have Palliative Care and Psychiatric consultations. Per nursing, the daughter's patient stated that she has had suicidal ideation and attempts over the past 10 years. Physical Exam Vital Signs: Temp Pulse Resp BP Pulse Ox 97.8 F 105 H 22 H 158/75 H 98 02/23/17 07:47 02/23/17 07:50 02/23/17 07:50 02/23/17 07:47 02/23/17 07:50 Intake & Output 02/22/17 02/23/17 02/24/17 06:59 06:59 06:59 Intake Total 160 Balance 160 Weight 77 kg General appearance: PRESENT: hard of hearing, severe distress - Improved w/ BiPAP and coaching, well-developed, well-nourished Head exam: PRESENT: atraumatic, normocephalic Eye exam: PRESENT: conjunctiva pink, EOMI, PERRLA. ABSENT: scleral icterus Ear exam: PRESENT: normal external ear exam Mouth exam: PRESENT: moist, tongue midline Neck exam: ABSENT: carotid bruit, JVD, lymphadenopathy, thyromegaly Respiratory exam: PRESENT: decreased breath sounds - bibasilar, prolonged expiratory phas, tachypnea, wheezes - bilateral expiratory wheeze. ABSENT: rales, rhonchi, unlabored Cardiovascular exam: PRESENT: RRR, systolic murmur, tachycardia. ABSENT: diastolic murmur, rubs Pulses: PRESENT: normal dorsalis pedis pul Vascular exam: PRESENT: normal capillary refill GI/Abdominal exam: PRESENT: normal bowel sounds, soft. ABSENT: distended, guarding, mass, organolmegaly, rebound, tenderness Rectal exam: PRESENT: deferred Extremities exam: PRESENT: full ROM. ABSENT: calf tenderness, clubbing, pedal edema Neurological exam: PRESENT: alert, awake, oriented to person, oriented to place , oriented to time, oriented to situation, CN II-XII grossly intact. ABSENT: motor sensory deficit Psychiatric exam: PRESENT: agitated, anxious, suicidal ideation. ABSENT: homicidal ideation Skin exam: PRESENT: dry, skin tears - Posterior left hand (self inflicted), warm. ABSENT: cyanosis, intact, rash Results Laboratory Results: 02/23/17 05:30 02/23/17 05:30 02/22/17 02/22/17 02/23/17 16:00 21:04 05:30 WBC 13.9 H RBC 4.36 Hgb 12.6 Hct 37.9 MCV 87 MCH 28.8 MCHC 33.1 RDW 15.5 H Plt Count 282 Seg Neutrophils % 85.4 H Lymphocytes % 8.7 L Monocytes % 5.7 Eosinophils % 0.0 Basophils % 0.2 Absolute Neutrophils 11.9 H Absolute Lymphocytes 1.2 Absolute Monocytes 0.8 Absolute Eosinophils 0.0 Absolute Basophils 0.0 Carbonic Acid 1.50 H HCO3/H2CO3 Ratio 19:1 ABG pH 7.40 ABG pCO2 49.8 H ABG pO2 119.5 H ABG HCO3 29.9 H ABG O2 Saturation 98.3 H ABG Base Excess 4.2 FiO2 45% Sodium Potassium Chloride Carbon Dioxide Anion Gap BUN Creatinine Est GFR ( Amer) Est GFR (Non-Af Amer) Glucose Calcium Total Bilirubin AST ALT Alkaline Phosphatase Total Protein Albumin Urine Color YELLOW Urine Appearance SLIGHTLY-CLOUDY Urine pH 6.0 Ur Specific [place] 1.011 Urine Protein NEGATIVE Urine Glucose (UA) 150 H Urine Ketones TRACE H Urine Blood MODERATE H Urine Nitrite NEGATIVE Ur Leukocyte Esterase SMALL H Urine WBC (Auto) 23 Urine RBC (Auto) 22 02/23/17 05:30 WBC RBC Hgb Hct MCV MCH MCHC RDW Plt Count Seg Neutrophils % Lymphocytes % Monocytes % Eosinophils % Basophils % Absolute Neutrophils Absolute Lymphocytes Absolute Monocytes Absolute Eosinophils Absolute Basophils Carbonic Acid HCO3/H2CO3 Ratio ABG pH ABG pCO2 ABG pO2 ABG HCO3 ABG O2 Saturation ABG Base Excess FiO2 Sodium 140.6 Potassium 4.8 Chloride 99 Carbon Dioxide 27 Anion Gap 15 BUN 12 Creatinine 0.61 Est GFR ( Amer) > 60 Est GFR (Non-Af Amer) > 60 Glucose 174 H Calcium 9.5 Total Bilirubin 0.5 AST 28 ALT 36 Alkaline Phosphatase 117 Total Protein 7.4 Albumin 4.4 Urine Color Urine Appearance Urine pH Ur Specific [place] Urine Protein Urine Glucose (UA) Urine Ketones Urine Blood Urine Nitrite Ur Leukocyte Esterase Urine WBC (Auto) Urine RBC (Auto) 02/22/17 19:57 Troponin I 0.021 Impressions: Chest X-Ray 02/22/17 13:24 IMPRESSION: Chronic lung changes with no acute cardiopulmonary disease. 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 1- Supplemental oxygen to keep O2 sats >88% 2- BiPAP qHS and prn 3- prn Nebs 4- IV Solumedrol 5- Emperic IV antibiotic coverage for presumed pseudomonas pneumonia 6- Continue home medications; Spiriva, Singulair, and Daliresp 7- Optimize benzodiazepams for anxiety r/t severe resp distress in pt with end stage disease 8- Appreciate Pulmonology consultation and recommendations 9- Appreciate Palliative Care consultation for guidance and clarification on goals of care (2) Suicidal ideation Is this a current diagnosis for this admission?: Yes Plan: 1- Appreciate Psychiatry evaluation 2- Continue home medication; Effexor 3- Optimize benzodiazepines 4- Monitor resp. status and reduce steroids as soon as feasible given that hospital/steroid induced psychosis may be contributing 5- Safety tray (3) Skin tear Is this a current diagnosis for this admission?: Yes Plan: Self-inflicted to left posterior hand from butter knife; t expressing suicidal ideation. 1- Skin care per nursing protocols 2- Safety tray 3- Psychiatry consulted (4) Pneumonia Qualifiers: Pneumonia type: due to unspecified organism Lung location: unspecified part of lung Is this a current diagnosis for this admission?: Yes Plan: Patient with COPD exacerbation and Pseudomonas in previous sputum cultures. Pt was started on Azactam and Cefepime empirically; Cefepime will be continued for gram positive coverage and previous pseudomonas sensitivities. 1- Continue IV antibiotics 2- Duonebs prn 3- BiPAP qHS and prn 4- Appreciate Pulmonology consultation (5) COPD exacerbation Is this a current diagnosis for this admission?: Yes Plan: Plan as above. - Time Time Spent with patient: 35 or more minutes Medications reviewed and adjusted accordingly: Yes
--- NOTE | 2017-02-23 13:09 | EKG REPORT ---
SEVERITY:- ABNORMAL ECG - SINUS TACHYCARDIA ANTERIOR INFARCT, AGE INDETERMINATE : Confirmed by: Philipp Xavier MD 23-Feb-2017 13:08:33
--- NOTE | 2017-02-23 16:07 | PSYCHOLOGICAL NOTE ---
Psych Note - Psych Note Psych Note: She is an 86-year-old female [facility] exasper[facility]. Patient is reportedly end-stage COPD and a referral was made today to palliative care. Patient reportedly has a history of depression with a suicide attempt 10 years ago. Patient this morning was found with a butter knife cutting on her hand. Review of patient's record suggests no prior psychiatric visits. Patient has had a head CT within the past year which demonstrates prominent ventricles and atrophy of the white matter/ ischemic changes. Patient this afternoon states she was trying to harm herself because she wants to . Patient states she has had suicidal ideations for the past 10 years since she was initially diagnosed. Patient reports she has no quality of life and is a drain on her daughter, with whom she lives. Patient reports it was stupid this morning for her to think that her daughter abandoned her at [facility]. Patient does provide consent to speak with her daughter who is bedside. DaughterLissy states they do reside together and she does serve as primary drug purchaser. She reports her mother gets extremely anxious and in her opinion paranoid regarding being left and left alone. Daughter states she does not feel the patient is going to attempt suicide again. She states she feels it is "out of her system." Ports to have a myriad of home health services which come to the home daily to provide assistance to include OT, PT, speech, nursing, etc. Patient is alert and oriented. Mood is depressed and anxious with congruent affect. Patient endorses suicidal ideations but denies plan at this time. Patient acknowledges she was attempting suicide when she cut on her hand and wrist earlier. Patient denies homicidal ideations, intent, plan, means. Patient denies A/VH; delusions not noted. Thought processes were organized but guarded. Conversational speech was within normal limits for rate, tone, and prosody. Attention and focus were fair. 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 She only head CT completed in 2015 demonstrates prominent ventricles and chronic ischemic changes of the white matter. Prescribing provider for [facility] has reviewed the medical record and suggested the following medication change: Discontinue Haldol Discontinue Effexor Start Depakote 500 mg twice daily Start clonidine 0.1 mg every 12 as needed if vitals support Start Geodon 20 mg every 6 as needed for agitation Start Cogentin 1 mg daily Reviewed concerns for patient safety with both the patient and her daughter. Patient's daughter feels the patient will not attempt to harm herself again and states she has "gotten out of her system." Discussed with them the pros and cons of an involuntary commitment And at this time patient is not recommended for IVC. It is recommended and was requested by the mailhouse operator that TYREE aviation safety inspector sitter remain outside of the patient's room due to concerns for this morning's action. I consulted with Dr. Ying in regards to the care management of this patient. Thank you kindly for this consult. Please call and request an additional consult if any further needs arise.
[2017-02-23] MEDS: ZIPRASIDONE HCL 20 MG CAPSULE PO PRN (16:19)
[2017-02-23] MEDS ORDERED: INFLUENZA ADLT QUAD (36MOS+) 2017-18 VAC 0.5 ML SYR IM PRN (16:22)
[2017-02-23] MEDS: MONTELUKAST SODIUM 10 MG TABLET PO SCH (17:24)
[2017-02-23] MEDS: GENTAMICIN SULFATE 120 MG in DEXTROSE 5%-WATER 100 ML IV SCH (21:10)
[2017-02-23] MEDS: DIVALPROEX SODIUM 250 MG TABLET.DR PO SCH (21:12)
[2017-02-23] MEDS: CLONIDINE HCL 0.1 MG TABLET PO SCH (21:12)
[2017-02-23] MEDS: BENZTROPINE MESYLATE 1 MG TABLET PO SCH (21:14)
[2017-02-24 04:51] LABS: HEMATOCRIT 34.5 % (36.0-47.0); HEMOGLOBIN 11.4 g/dL (12.0-15.5); HGB HCT DIFFERENCE -0.3; MEAN CORPUSCULAR HEMOGLOBIN 28.7 pg (27.0-33.4); MEAN CORPUSCULAR HGB CONC 33.2 g/dL (32.0-36.0); MEAN CORPUSCULAR VOLUME 87 fl (80-97); RED BLOOD COUNT 3.98 10^6/uL (3.72-5.28); RED CELL DISTRIBUTION WIDTH 15.8 % (11.5-14.0); WHITE BLOOD COUNT 15.3 10^3/uL (4.0-10.5)
[2017-02-24] MEDS: METHYLPREDNISOLONE INJ 40 MG/1 ML SDV IV SCH ×3 (05:33→21:49)
[2017-02-24] MEDS: CEFEPIME 2 GM/D5W RTU 2 GM/50 ML RTUPB IV SCH ×2 (05:33→17:31)
[2017-02-24] MEDS: GUAIFENESIN 600 MG TABLET.SA PO SCH ×2 (05:33→17:31)
[2017-02-24] MEDS: ZIPRASIDONE HCL 20 MG CAPSULE PO PRN ×3 (06:49→20:09)
[2017-02-24] MEDS: LEVALBUTEROL HCL NEB 0.63 MG/3 ML AMPUL NEB PRN ×3 (08:01→20:44)
--- NOTE | 2017-02-24 09:53 | PDOC PROGRESS REPORT ---
Subjective Progress Note for:: 02/24/17 - Acute on chronic respiratory failure Subjective:: Confused Physical Exam Vital Signs: Temp Pulse Resp BP Pulse Ox 97.6 F 105 H 18 135/76 H 97 02/24/17 03:35 02/24/17 08:01 02/24/17 08:01 02/24/17 03:35 02/24/17 08:01 Pulse Oximeter Continuous Start: 02/23/17 10: 33 Freq: RTQ4 Status: Active Document 02/24/17 08:01 LDA (Rec: 02/24/17 09:30 LDA [email or web address]) Pulse Oximetry Assessment Oxygen Saturation (92-100) 97 Oxygen Flow Rate (L/min) 5 Oxygen Delivery Method Nasal Cannula Equipment Usage Equipment in Use Continuous SpO2 Machine # 6 Intake & Output 02/23/17 02/24/17 02/25/17 06:59 06:59 06:59 Intake Total 160 2871 Output Total 50 Balance 160 2821 Weight 77 kg 76.6 kg General appearance: PRESENT: disheveled, mild distress - not on BiPAP, well- developed. ABSENT: no acute distress, cooperative, hard of hearing Head exam: PRESENT: atraumatic, normocephalic Eye exam: PRESENT: conjunctiva pale Mouth exam: PRESENT: dry mucosa, neck supple, tongue midline Neck exam: ABSENT: carotid bruit, JVD, lymphadenopathy, thyromegaly, tracheostomy Respiratory exam: PRESENT: decreased breath sounds, prolonged expiratory phas, rhonchi, symmetrical, tachypnea, unlabored. ABSENT: accessory muscle use, chest wall tenderness, clear to auscultation camelia, crackles, rales, retraction, stridor Cardiovascular exam: PRESENT: RRR, +S1, +S2, systolic murmur - 4/6 holosystolic. ABSENT: bradycardia, clicks, irregular rhythm, rubs Pulses: PRESENT: normal radial pulses GI/Abdominal exam: PRESENT: normal bowel sounds, soft. ABSENT: distended, guarding, mass, organolmegaly, rebound, tenderness Gentrourinary exam: ABSENT: ecchymosis, erythema Extremities exam: ABSENT: calf tenderness, clubbing, joint swelling, tenderness Musculoskeletal exam: ABSENT: ambulatory, deformity, dislocation, tenderness Neurological exam: PRESENT: altered Skin exam: PRESENT: dry, warm Results Laboratory Results: 02/24/17 04:22 02/23/17 05:30 02/24/17 04:22 WBC 15.3 H RBC 3.98 Hgb 11.4 L Hct 34.5 L MCV 87 MCH 28.7 MCHC 33.2 RDW 15.8 H Plt Count 249 02/22/17 21:04 Clean Catch Midstream Urine Culture - Final NO GROWTH 2 DAYS 02/22/17 19:57 Troponin I 0.021 Impressions: Chest X-Ray 02/22/17 13:24 IMPRESSION: Chronic lung changes with no acute cardiopulmonary disease. Assessment & Plan - Diagnosis (1) Acute on chronic respiratory failure with hypoxemia Is this a current diagnosis for this admission?: Yes Plan: SaO2 is acceptable no ABG patient retains PCO2 patient should be on BiPAP except when eating and 45 minutes postprandial (2) COPD exacerbation Is this a current diagnosis for this admission?: Yes Plan: Continue current therapy Generic Name Dose Route Start Last Admin Trade Name Freq PRN Reason Stop Dose Admin Levalbuterol HCl 0.63 mg 02/22/17 15:10 02/23/17 07:50 Xopenex Neb 0.63 Mg/3 Ml Ampul NEB 03/24/17 15:09 0.63 mg RTQ4HP PRN FOR WHEEZING Guaifenesin 600 mg 02/23/17 06:00 02/23/17 07:51 Mucinex Sr 600 Mg Tablet.Sa PO 03/25/17 05:59 600 mg Q12A MAEGAN Patient Own Medication 1 puff 02/22/17 15:30 Fluticasone/Vilanterol [Breo Ellipta 100-25 Mcg Inh] IH 03/24/17 15:29 .Q12 [facility] Methylprednisolone Sodium Succinate 40 mg 02/22/17 22:00 02/23/17 06:05 Solu-Medrol Inj/Pf 40 Mg/1 Ml Sdv IV 03/24/17 21:59 40 mg Q8 MAEGAN Tiotropium [place] 1 cap 02/23/17 10:00 Spiriva Hand[place]haler 5 Cap/Kit (18 Mcg/Cap) IH 03/25/17 09:59 DAILY MAEGAN Roflumilast 500 mcg 02/23/17 10:00 Daliresp 500 Mcg Tablet PO 03/25/17 09:59 DAILY MAEGAN (3) GERD (gastroesophageal reflux disease) Qualifiers: Esophagitis presence: esophagitis presence not specified Qualified Code(s) : K21.9 - Gastro-esophageal reflux disease without esophagitis Is this a current diagnosis for this admission?: Yes Plan: Continue PPI (4) UTI (urinary tract infection) Qualifiers: Urinary tract infection type: acute cystitis Is this a current diagnosis for this admission?: Yes Plan: No change in microbiology reports over the last 24 Labs- All tests 24 hr 02/22/17 21:04 Urine Color YELLOW Urine Appearance SLIGHTLY-CLOUDY Urine pH 6.0 Ur Specific [place] 1.011 Urine Protein NEGATIVE Urine Glucose (UA) 150 H Urine Ketones TRACE H Urine Blood MODERATE H Urine Nitrite NEGATIVE Ur Leukocyte Esterase SMALL H Urine WBC (Auto) 23 Urine RBC (Auto) 22 U Hyaline Cast (Auto) 1 Urine Bacteria (Auto) TRACE Urine Ascorbic Acid 40 H 02/22/17 21:04 Urine Culture - Preliminary Clean Catch Midstream NO GROWTH IN 1 DAY adjust antibiotic therapy as dictated by culture results
--- NOTE | 2017-02-24 10:37 | PDOC PROGRESS REPORT ---
Subjective Progress Note for:: 02/24/17 Subjective:: Patient is seen on morning rounds, she is sleeping soundly. She arouses slightly to name and gentle shake but does not wake fully. She is found to be on supplemental oxygen at 4 L/min via nasal cannula. Is noted to be maintaining her O2 sats at 97% with unlabored respirations and so is titrated down to 3 L/min without desaturations. She appears to be comfortable and nursing reports that there were no developments or concerns noted overnight needing to be addressed. Physical Exam Vital Signs: Temp Pulse Resp BP Pulse Ox 97.6 F 105 H 18 135/76 H 97 02/24/17 03:35 02/24/17 08:01 02/24/17 08:01 02/24/17 03:35 02/24/17 08:01 Pulse Oximeter Continuous Start: 02/23/17 10: 33 Freq: RTQ4 Status: Active Document 02/24/17 08:01 LDA (Rec: 02/24/17 09:30 LDA [email or web address]) Pulse Oximetry Assessment Oxygen Saturation (92-100) 97 Oxygen Flow Rate (L/min) 5 Oxygen Delivery Method Nasal Cannula Equipment Usage Equipment in Use Continuous SpO2 Machine # 6 Intake & Output 02/23/17 02/24/17 02/25/17 06:59 06:59 06:59 Intake Total 160 2871 Output Total 50 Balance 160 2821 Weight 77 kg 76.6 kg General appearance: PRESENT: no acute distress, well-developed, well-nourished Head exam: PRESENT: atraumatic, normocephalic Eye exam: PRESENT: conjunctiva pink, PERRLA. ABSENT: scleral icterus Ear exam: PRESENT: normal external ear exam Mouth exam: PRESENT: moist, tongue midline Neck exam: ABSENT: carotid bruit, JVD, lymphadenopathy, thyromegaly Respiratory exam: PRESENT: decreased breath sounds - bibasilar, rhonchi, symmetrical, unlabored. ABSENT: clear to auscultation camelia, rales, tachypnea, wheezes Cardiovascular exam: PRESENT: RRR, systolic murmur. ABSENT: diastolic murmur, rubs Pulses: PRESENT: normal dorsalis pedis pul Vascular exam: PRESENT: normal capillary refill GI/Abdominal exam: PRESENT: normal bowel sounds, soft. ABSENT: distended, guarding, mass, organolmegaly, rebound, tenderness Rectal exam: PRESENT: deferred Extremities exam: PRESENT: full ROM. ABSENT: calf tenderness, clubbing, pedal edema Neurological exam: PRESENT: oriented to person, other - Sleeping soundly. ABSENT: motor sensory deficit Psychiatric exam: ABSENT: homicidal ideation, suicidal ideation Skin exam: PRESENT: dry, warm. ABSENT: cyanosis, intact - skin tear to Lt posterior hand; dressing in place, rash Results Laboratory Results: 02/24/17 04:22 02/23/17 05:30 02/24/17 04:22 WBC 15.3 H RBC 3.98 Hgb 11.4 L Hct 34.5 L MCV 87 MCH 28.7 MCHC 33.2 RDW 15.8 H Plt Count 249 02/22/17 21:04 Clean Catch Midstream Urine Culture - Final NO GROWTH 2 DAYS 02/22/17 19:57 Troponin I 0.021 Impressions: Chest X-Ray 02/22/17 13:24 IMPRESSION: Chronic lung changes with no acute cardiopulmonary disease. Assessment & Plan - Diagnosis (1) Acute on chronic respiratory failure with hypoxemia Is this a current diagnosis for this admission?: Yes Plan: Improved today. 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 1- Supplemental oxygen to keep O2 sats >88% 2- BiPAP qHS and prn 3- prn Nebs 4- IV Solumedrol 5- Emperic IV antibiotic coverage for presumed pseudomonas pneumonia; cultures pending 6- Continue home medications; Spiriva, Singulair, and Daliresp 7- Appreciate Pulmonology consultation and recommendations 8- Appreciate Palliative Care consultation for guidance and clarification on goals of care; pt is hospice appropriate if pt/family agreeable (2) Suicidal ideation Is this a current diagnosis for this admission?: Yes Plan: 1- Appreciate Psychiatry evaluation 2- Medication recommendations per psychiatry: d/c benzodiazepines and effexor. Start Cogentin and Depakote scheduled with prn Geodon 3- Monitor resp. status and reduce steroids as soon as feasible given that hospital/steroid induced psychosis may be contributing 4- 1:1 sitter supervision 5- Safety tray (3) Skin tear Is this a current diagnosis for this admission?: Yes Plan: Self-inflicted to left posterior hand from butter knife; pt expressing suicidal ideation. 1- Skin care per nursing protocols 2- Safety tray 3- Appreciate Psychiatry recommendations (4) Pneumonia Qualifiers: Pneumonia type: due to unspecified organism Lung location: unspecified part of lung Is this a current diagnosis for this admission?: Yes Plan: Patient with COPD exacerbation and Pseudomonas in previous sputum cultures. Pt was started on Azactam and Cefepime empirically; Cefepime will be continued for gram positive coverage and previous pseudomonas sensitivities. 1- Continue IV antibiotics 2- Duonebs prn 3- BiPAP qHS and prn 4- Appreciate Pulmonology consultation (5) COPD exacerbation Is this a current diagnosis for this admission?: Yes Plan: Plan as above. - Time Time Spent with patient: 25-34 minutes Medications reviewed and adjusted accordingly: Yes - Inpatient Certification Based on my medical assessment, after consideration of the patient's comorbidities, presenting symptoms, or acuity I expect that the services needed warrant INPATIENT care.: Yes I certify that my determination is in accordance with my understanding of Medicare's requirements for reasonable and necessary INPATIENT services [42 CFR 412.3e].: Yes Medical Necessity: Need Close Monitoring Due to Risk of Patient Decompensation, Need for IV Antibiotics
[2017-02-24] MEDS: ENOXAPARIN SODIUM INJ 30 MG/0.3 ML DISP.SYRIN SUBCUT SCH (12:29)
[2017-02-24] MEDS: DIVALPROEX SODIUM 250 MG TABLET.DR PO SCH ×2 (12:30→21:47)
[2017-02-24] MEDS: ROFLUMILAST 500 MCG TABLET PO SCH (12:30)
[2017-02-24] MEDS: TIOTROPIUM BROMIDE DPI 5 CAP/KIT (18 MCG/CAP) IH SCH (12:31)
[2017-02-24] MEDS: CLONIDINE HCL 0.1 MG TABLET PO SCH ×2 (12:31→21:48)
[2017-02-24] MEDS: LANSOPRAZOLE 15 MG TAB.RAP.DR PO SCH (12:31)
[2017-02-24] MEDS: MONTELUKAST SODIUM 10 MG TABLET PO SCH (17:31)
[2017-02-24] MEDS: BENZTROPINE MESYLATE 1 MG TABLET PO SCH (21:47)
[2017-02-25] MEDS: ZIPRASIDONE HCL 20 MG CAPSULE PO PRN ×4 (04:45→23:31)
[2017-02-25 04:58] LABS: HEMATOCRIT 37.2 % (36.0-47.0); HEMOGLOBIN 12.2 g/dL (12.0-15.5); HGB HCT DIFFERENCE -0.6; MEAN CORPUSCULAR HEMOGLOBIN 28.4 pg (27.0-33.4); MEAN CORPUSCULAR HGB CONC 32.8 g/dL (32.0-36.0); MEAN CORPUSCULAR VOLUME 87 fl (80-97); RED BLOOD COUNT 4.29 10^6/uL (3.72-5.28); RED CELL DISTRIBUTION WIDTH 15.5 % (11.5-14.0); WHITE BLOOD COUNT 17.2 10^3/uL (4.0-10.5)
[2017-02-25] MEDS: METHYLPREDNISOLONE INJ 40 MG/1 ML SDV IV SCH ×2 (06:03→21:48)
[2017-02-25] MEDS: GUAIFENESIN 600 MG TABLET.SA PO SCH ×2 (06:05→17:50)
[2017-02-25] MEDS: CEFEPIME 2 GM/D5W RTU 2 GM/50 ML RTUPB IV SCH (06:05)
[2017-02-25] MEDS: LEVALBUTEROL HCL NEB 0.63 MG/3 ML AMPUL NEB PRN ×3 (08:10→21:07)
[2017-02-25] MEDS: DIVALPROEX SODIUM 250 MG TABLET.DR PO SCH ×2 (10:32→21:51)
[2017-02-25] MEDS: CLONIDINE HCL 0.1 MG TABLET PO SCH ×2 (10:32→21:48)
[2017-02-25] MEDS: ROFLUMILAST 500 MCG TABLET PO SCH (10:32)
[2017-02-25] MEDS: LANSOPRAZOLE 15 MG TAB.RAP.DR PO SCH (10:32)
[2017-02-25] MEDS: ENOXAPARIN SODIUM INJ 30 MG/0.3 ML DISP.SYRIN SUBCUT SCH (10:32)
[2017-02-25] MEDS: TIOTROPIUM BROMIDE DPI 5 CAP/KIT (18 MCG/CAP) IH SCH (10:33)
--- NOTE | 2017-02-25 12:29 | PDOC PROGRESS REPORT ---
Subjective Progress Note for:: 02/25/17 - acute/chronic resp failure Subjective:: They said that I could go home today Physical Exam Vital Signs: Temp Pulse Resp BP Pulse Ox 97.3 F 100 26 H 112/85 96 02/25/17 08:35 02/25/17 08:35 02/25/17 08:35 02/25/17 08:35 02/25/17 12:00 Pulse Oximeter Continuous Start: 02/23/17 10: 33 Freq: RTQ4 Status: Active Document 02/25/17 12:00 LDA (Rec: 02/25/17 12:03 LDA [email or web address]) Pulse Oximetry Assessment Oxygen Saturation (92-100) 96 Oxygen Flow Rate (L/min) 5 Oxygen Delivery Method Nasal Cannula Equipment Usage Equipment in Use Continuous SpO2 Machine # 6 Intake & Output 02/24/17 02/25/17 02/26/17 06:59 06:59 06:59 Intake Total 2871 1806 Output Total 50 Balance 2821 1806 Weight 76.6 kg 76.5 kg General appearance: PRESENT: no acute distress, cooperative, disheveled, obese, well-developed Head exam: PRESENT: atraumatic, normocephalic Eye exam: PRESENT: conjunctiva pale Mouth exam: PRESENT: dry mucosa, neck supple, tongue midline Neck exam: ABSENT: carotid bruit, JVD, lymphadenopathy, thyromegaly Respiratory exam: PRESENT: clear to auscultation camelia, decreased breath sounds, prolonged expiratory phas, symmetrical, unlabored. ABSENT: accessory muscle use , chest wall tenderness, crackles, rales, retraction, rhonchi, stridor, tachypnea, wheezes Cardiovascular exam: PRESENT: RRR, +S1, +S2 Pulses: PRESENT: normal radial pulses GI/Abdominal exam: PRESENT: normal bowel sounds, soft. ABSENT: distended, guarding, mass, organolmegaly, rebound, tenderness Extremities exam: ABSENT: calf tenderness, clubbing, joint swelling, pedal edema , tenderness Musculoskeletal exam: PRESENT: ambulatory. ABSENT: deformity, dislocation, tenderness Neurological exam: PRESENT: alert, awake. ABSENT: altered Psychiatric exam: PRESENT: normal mood Skin exam: PRESENT: dry, warm Results Laboratory Results: 02/25/17 04:27 02/23/17 05:30 02/25/17 04:27 WBC 17.2 H RBC 4.29 Hgb 12.2 Hct 37.2 MCV 87 MCH 28.4 MCHC 32.8 RDW 15.5 H Plt Count 284 02/22/17 21:04 Clean Catch Midstream Urine Culture - Final NO GROWTH 2 DAYS 02/22/17 19:57 Troponin I 0.021 Impressions: Chest X-Ray 02/22/17 13:24 IMPRESSION: Chronic lung changes with no acute cardiopulmonary disease. Assessment & Plan - Diagnosis (1) Acute on chronic respiratory failure with hypoxemia Is this a current diagnosis for this admission?: Yes Plan: Clinically improving decreased FiO2 requirements continues to try and wean off of oxygen prior to discharge (2) COPD exacerbation Is this a current diagnosis for this admission?: Yes Plan: Continue current therapy Generic Name Dose Route Start Last Admin Trade Name Freq PRN Reason Stop Dose Admin Levalbuterol HCl 0.63 mg 02/22/17 15:10 02/23/17 07:50 Xopenex Neb 0.63 Mg/3 Ml Ampul NEB 03/24/17 15:09 0.63 mg RTQ4HP PRN FOR WHEEZING Guaifenesin 600 mg 02/23/17 06:00 02/23/17 07:51 Mucinex Sr 600 Mg Tablet.Sa PO 03/25/17 05:59 600 mg Q12A MAEGAN Patient Own Medication 1 puff 02/22/17 15:30 Fluticasone/Vilanterol [Breo Ellipta 100-25 Mcg Inh] IH 03/24/17 15:29 .Q12 MAEGAN Methylprednisolone Sodium Succinate 40 mg 02/22/17 22:00 02/23/17 06:05 Solu-Medrol Inj/Pf 40 Mg/1 Ml Sdv IV 03/24/17 21:59 40 mg Q8 MAEGAN Tiotropium [place] 1 cap 02/23/17 10:00 Spiriva Handihaler 5 Cap/Kit (18 Mcg/Cap) IH 03/25/17 09:59 DAILY MAEGAN Roflumilast 500 mcg 02/23/17 10:00 Daliresp 500 Mcg Tablet PO 03/25/17 09:59 DAILY MAEGAN (3) GERD (gastroesophageal reflux disease) Qualifiers: Esophagitis presence: esophagitis presence not specified Qualified Code(s) : K21.9 - Gastro-esophageal reflux disease without esophagitis Is this a current diagnosis for this admission?: Yes Plan: Continue PPI (4) UTI (urinary tract infection) Qualifiers: Urinary tract infection type: acute cystitis Is this a current diagnosis for this admission?: Yes
--- NOTE | 2017-02-25 13:58 | PDOC PROGRESS REPORT ---
Subjective Progress Note for:: 02/25/17 Subjective:: Patient is seen on morning rounds. She has just come off BiPAP for breakfast and is currently on supplemental oxygen via nasal cannula. She reports that her breathing has improved and she is hopeful to be discharged to home today. She denies chest pain, dyspnea at rest, orthopnea, and productive cough. She denies anxiety and panic attacks overnight; she states that she slept well last night. She denies suicidal ideation at present; she denies desire to attempt suicide and does not have a plan. She states that she is exhausted by her COPD diagnosis and does not want to feel like she is suffocating. Her primary concern is to be comfortable and to let a natural occur. She states that she has been a DNR for some time now and is now ready to pursue hospice care. Physical Exam Vital Signs: Temp Pulse Resp BP Pulse Ox 97.7 F 96 18 131/88 H 98 02/25/17 11:44 02/25/17 12:23 02/25/17 12:23 02/25/17 11:44 02/25/17 12:23 Pulse Oximeter Continuous Start: 02/23/17 10: 33 Freq: RTQ4 Status: Active Document 02/25/17 12:00 LDA (Rec: 02/25/17 12:03 LDA [email or web address]) Pulse Oximetry Assessment Oxygen Saturation (92-100) 96 Oxygen Flow Rate (L/min) 5 Oxygen Delivery Method Nasal Cannula Equipment Usage Equipment in Use Continuous SpO2 Machine # 6 Intake & Output 02/24/17 02/25/17 02/26/17 06:59 06:59 06:59 Intake Total 2871 1806 240 Output Total 50 Balance 2821 1806 240 Weight 76.6 kg 76.5 kg General appearance: PRESENT: no acute distress, well-developed, well-nourished, other - overweight Head exam: PRESENT: atraumatic, normocephalic Eye exam: PRESENT: conjunctiva pink, EOMI, PERRLA. ABSENT: scleral icterus Ear exam: PRESENT: normal external ear exam Mouth exam: PRESENT: moist, tongue midline Teeth exam: PRESENT: edentulous - dentures Neck exam: ABSENT: carotid bruit, JVD, lymphadenopathy, thyromegaly Respiratory exam: PRESENT: clear to auscultation camelia, symmetrical, tachypnea. ABSENT: rales, rhonchi, wheezes Cardiovascular exam: PRESENT: RRR, systolic murmur. ABSENT: diastolic murmur, rubs Pulses: PRESENT: normal dorsalis pedis pul Vascular exam: PRESENT: normal capillary refill GI/Abdominal exam: PRESENT: normal bowel sounds, soft. ABSENT: distended, guarding, mass, organolmegaly, rebound, tenderness Rectal exam: PRESENT: deferred Extremities exam: PRESENT: full ROM. ABSENT: calf tenderness, clubbing, pedal edema Neurological exam: PRESENT: alert, awake, oriented to person, oriented to place , oriented to time, oriented to situation, CN II-XII grossly intact. ABSENT: motor sensory deficit Psychiatric exam: PRESENT: appropriate affect, normal mood. ABSENT: homicidal ideation, suicidal ideation Skin exam: PRESENT: dry, intact, warm. ABSENT: cyanosis, rash Results Laboratory Results: 02/25/17 04:27 02/23/17 05:30 02/25/17 04:27 WBC 17.2 H RBC 4.29 Hgb 12.2 Hct 37.2 MCV 87 MCH 28.4 MCHC 32.8 RDW 15.5 H Plt Count 284 02/22/17 21:04 Clean Catch Midstream Urine Culture - Final NO GROWTH 2 DAYS 02/22/17 19:57 Troponin I 0.021 Impressions: Chest X-Ray 02/22/17 13:24 IMPRESSION: Chronic lung changes with no acute cardiopulmonary disease. Assessment & Plan - Diagnosis (1) Acute on chronic respiratory failure with hypoxemia Is this a current diagnosis for this admission?: Yes Plan: Continues to improve. 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 Patient is hospice appropriate and does desire to be discharged to home with hospice services. meteorologist liaison met with the patient and they daughter today. Daughter states that patient is receiving PT/OT at home and desires for her to continue the services. Will ask PT to evaluate patient's ability to participate with physical therapy as if the patient can not tolerate the services, the daughter feels that she may be more accepting of hospice admission. 1- Supplemental oxygen to keep O2 sats >88% 2- BiPAP qHS and prn 3- prn Nebs 4- IV Solumedrol; will reduce dose today to eval for tolerance and in anticipation of transition to p.o. tomorrow 5- Will transition to p.o. Augmentin (for psudomonas coverage) as cultures have negative growth at 48 and 72 hours 6- Continue home medications; Spiriva, Singulair, and Daliresp 7- Appreciate Pulmonology consultation and recommendations; spoke with Dr. Childers today regarding plan and pt's appropriateness for hospice services 8- Appreciate Palliative Care consultation for guidance and clarification on goals of care; pt is hospice appropriate if pt/family agreeable 9- PT to evaluate and treat per protocols (2) Suicidal ideation Is this a current diagnosis for this admission?: Yes Plan: This is a difficult situation as the patient has end-stage COPD and is hospice appropriate. The patient appears to have ordered thoughts with good judgment and appropriate insight. Patient discusses with me her desire to be discharged home with hospice services so that she can have "things happen the way nature means them to happen." She reports that her anxiety and panic attacks have lessened with the change in her medications. She denies active suicidal ideations or any suicide plan at present and tells me that her fear of suffocating to is what preempted her attempt this week. 1- Appreciate Psychiatry recommendations 2- Medication recommendations per psychiatry: Cogentin and Depakote scheduled with prn Jina 3- Monitor resp. status and reduce steroids as soon as feasible given that hospital/steroid induced psychosis may be contributing 4- 1:1 sitter supervision 5- Safety tray (3) Skin tear Is this a current diagnosis for this admission?: Yes Plan: Self-inflicted to left posterior hand from butter knife; pt expressed suicidal ideation. 1- Skin care per nursing protocols 2- Safety tray 3- Appreciate Psychiatry recommendations (4) Pneumonia Qualifiers: Pneumonia type: due to unspecified organism Lung location: unspecified part of lung Is this a current diagnosis for this admission?: Yes Plan: Patient with COPD exacerbation and Pseudomonas in previous sputum cultures. Pt was started on Azactam and Cefepime empirically; Cefepime will be continued for gram positive coverage and previous pseudomonas sensitivities. 1- Transition to p.o. Augmentin 2- Duonebs prn 3- BiPAP qHS and prn 4- Appreciate Pulmonology consultation (5) COPD exacerbation Is this a current diagnosis for this admission?: Yes Plan: Plan as above. (6) Leukocytosis Qualifiers: Leukocytosis type: unspecified Qualified Code(s): D72.829 - Elevated white blood cell count, unspecified Is this a current diagnosis for this admission?: Yes Plan: Patient with COPD exacerbation and pneumonia currently being treated with IV Solu-Medrol. WBC trending up. Pt is afebrile and clinically improving. Blood culture: negative at 48 and 72 hours. Urine cultures: negative (final). Will decrease IV steroids today and continue to monitor labs. - Time Time Spent with patient: 25-34 minutes Medications reviewed and adjusted accordingly: Yes Anticipated discharge: Home Within: within 48 hours
[2017-02-25] MEDS: AMOXICILLIN TR/POT CLAVULANATE 500-125 MG TAB PO SCH ×2 (14:27→21:48)
[2017-02-25] MEDS: ACETAMINOPHEN 325 MG TABLET PO PRN ×2 (14:27→18:42)
[2017-02-25] MEDS: MONTELUKAST SODIUM 10 MG TABLET PO SCH (17:49)
[2017-02-25 20:09] LABS: CREATININE RESULT 0.68 mg/dL (0.52-1.25)
[2017-02-25 20:22] LABS: GENTAMICIN-TROUGH < 0.6 ug/mL (<2.0); TROUGH DRAW TIME 1930
[2017-02-25] MEDS: BENZTROPINE MESYLATE 1 MG TABLET PO SCH (21:51)
--- NOTE | 2017-02-25 23:59 | Palliative Consultation Report ---
Consultation From:: EMERY EDMONDS Consult Reason: Acute on chronic respiratory failure - HPI HPI: Palliative care consult visit 02/25/17 5:05- 5:40 pm Appreciate consult request with this 86 year old woman who suffers with COPD and some early dementia symptoms. She has been admitted with UTI but is feeling better now. She lives at home with her daughter who is at her bedside during visit. Mrs. Bond is alert and oriented, eating her dinner without difficulty. She answered some of my questions appropriately, denying pain or dyspnea, saying she wants to go home, etc. However, most of my questions were answered by her daughter. Daughter states she wants to take her mother home with hospice, although she also talked about having PT and OT at home to improve patients ability to be independent. She says she cannot take care of her if she cannot ambulate, etc. WE discussed sending patent to rehab but she said she did that another time and patient insisted on leaving facility after only one hour there. We discussed patients condition and daughter informed me that patient meets criteria for hospice care. When I tried to discuss the possibilty of another exacerbation of COPD and the difference in hospice care and hospitalization, she said she realized that she would not go to the hospital but would be treated at home. Patient did not say anything but daughter told me patient was tired of being sick all of the time. She has been hospitalized several times in the last 45 days but had not been in the hospital for many months before that. Daughter talked about patient not eating at home, although patient ae all of her dinner while we were talking tonight, and I showed daughter the patients albumin and protein levels drawn during this admission to reassure her hat patient is getting enough protein so she wouldn't worry. Patient did cut her hand a couple of days ago with a butter knife off of her tray and said she was trying to kill herself. She did show me her bandage, but was interrupted when she started to tell me about it and didnt make any effort to try to discuss again.' She did not participate in the discussion of hospice. I explained the option of taking patient home with palliative care following along with home health. Daughter told me she wanted hospice and she wanted [facility] because she wanted to support them. I explained that hospitalist could order hospice care and she could tell sr. merchandise planner which hospice she prefers. she says she thinks this is the best option for care , and that she may take patient back to [place] with the rest of the family. We discussed how hospice benefit would allow her to transfer to a hospice there. During this entire conversation, patient did not participate, but it was obvious she was listening. Se did not seem to disagree with the conversation. SHe just says she wants to go home. Onset: Last week Onset/Duration: Gradual Severity: None Associated Symptoms: Productive cough, Shortness of breath Past Medical History(Consults) - General Information Source: Patient, Relative, [facility] Records Home Medications: Alprazolam [Xanax 0.25 mg Tablet] 0.25 mg PO Q12 02/22/17 Dexlansoprazole [Dexilant 30 mg Capsule] 30 mg PO DAILY 02/22/17 Fluticasone/Vilanterol [Breo Ellipta 100-25 Mcg INH] 1 puff IH Q12 02/22/17 Furosemide [Lasix 20 mg Tablet] 10 mg PO DAILY 02/22/17 Haloperidol [Haldol 5 mg Tablet] 5 mg PO QHS 02/22/17 Montelukast Sodium [Singulair 10 mg Tablet] 10 mg PO QPM 02/22/17 Tiotropium [place] [Spiriva Handihaler 18 mcg/dose (30 Dose)] 1 cap IH DAILY 10/03 Venlafaxine HCl ER [Effexor Xr 75 mg Cap.sr] 150 mg PO DAILY 02/22/17 Allergies/Adverse Reactions: levofloxacin [From Levaquin] Allergy (Intermediate, Verified 02/22/17 13:06) ITCHING, MUSCLE PAIN - Social History Lives with: Family Family History: Reviewed & Not Pertinent, Arthritis Parental Family History Reviewed: No Children Family History Reviewed: No Sibling(s) Family History Reviewed.: No Smoking Status: Former Smoker Frequency of Alcohol Use: None Hx Recreational Drug Use: No Drugs: None Hx Prescription Drug Abuse: No - Past Medical History Cardiac Medical History: Reports: Hx Congestive Heart Failure, Hx Coronary Artery Disease, Hx Hypercholesterolemia, Hx Hypertension Denies: Hx Heart Attack Pulmonary Medical History: Reports: Hx Asthma, Hx Bronchitis, Hx COPD, Hx Pneumonia, Hx Respiratory Failure Neurological Medical History: Denies: Hx Cerebrovascular Accident, Hx Seizures Renal/ Medical History: Denies: Hx Peritoneal Dialysis Musculoskeltal Medical History: Reports Hx Arthritis Psychiatric Medical History: Reports: Hx Depression Hematology: Denies: Anemia - Surgical History Past Surgical History: Reports: Hx Orthopedic Surgery - bilateral rotator cuff, Hx Tubal Ligation Review of systems ROS unobtainable: other All systems: reviewed and no additional remarkable complaints except as stated Constitutional: Weakness, Weight loss EENT: Difficulty swallowing Respiratory: Cough, Short of breath Geniturinary: Dysuria Ojective:Exam Vital Signs: Temp Pulse Resp BP Pulse Ox 98.2 F 98 18 130/91 H 98 02/25/17 19:33 02/25/17 21:07 02/25/17 21:07 02/25/17 19:33 02/25/17 21:07 Pulse Oximeter Continuous Start: 02/23/17 10: 33 Freq: RTQ4 Status: Active Document 02/25/17 21:07 [facility] (Rec: 02/25/17 22:54 [facility] [email or web address]) Pulse Oximetry Assessment Oxygen Saturation (92-100) 98 Oxygen Flow Rate (L/min) 4 Oxygen Delivery Method Nasal Cannula Equipment Usage Equipment in Use Continuous SpO2 Machine # N-6 Intake & Output 02/24/17 02/25/17 02/26/17 06:59 06:59 06:59 Intake Total 2871 1806 890 Output Total 50 Balance 2821 1806 890 Weight 76.6 kg 76.5 kg - General General Appearance: Alert In distress: None - HEENT Head: Normocephalic Eyes: Normal Conjunctiva: Normal Pupils: PERRLA - Respiratory Respiratory Status: No respiratory distress Breath sounds: Nonproductive cough - Cardiovascular Rhythm: Regular - Extremities Upper extremity: Normal inspection - Psychological Associated symptoms: Normal mood Objective-Diagnostic Laboratory: 02/25/17 04:27 02/25/17 19:30 02/25/17 02/25/17 04:27 19:30 WBC 17.2 H RBC 4.29 Hgb 12.2 Hct 37.2 MCV 87 MCH 28.4 MCHC 32.8 RDW 15.5 H Plt Count 284 Creatinine 0.68 Est GFR ( Amer) > 60 Est GFR (Non-Af Amer) > 60 02/22/17 19:57 Troponin I 0.021 Plan and Recommendation Plan and Recommendation: As above. Patient and daughter will talk to hospitalist about discharging with hospice. DNR already in place. Daughter states she understands comfort care vs. aggressive care in the future, patient did not disagree. If further needs arise, daughter has my card and encouraged to call. - Time Spent with Patient Time spent with patient: 15 to 30 Minutes
[2017-02-26] MEDS: LEVALBUTEROL HCL NEB 0.63 MG/3 ML AMPUL NEB PRN (03:50)
[2017-02-26] MEDS: GUAIFENESIN 600 MG TABLET.SA PO SCH (06:01)
[2017-02-26] MEDS: AMOXICILLIN TR/POT CLAVULANATE 500-125 MG TAB PO SCH (06:01)
[2017-02-26 06:11] LABS: ABSOLUTE MONOCYTES (AUTO) 0.9 10^3/uL (0.1-1.4); ABSOLUTE NEUT (AUTO) 10.9 10^3/uL (1.7-8.2); HEMATOCRIT 37.7 % (36.0-47.0); HEMOGLOBIN 12.4 g/dL (12.0-15.5); HGB HCT DIFFERENCE -0.5; LYMPHOCYTES % (AUTO) 7.5 % (13-45); MEAN CORPUSCULAR HEMOGLOBIN 28.7 pg (27.0-33.4); MEAN CORPUSCULAR VOLUME 87 fl (80-97); MONOCYTES % (AUTO) 7.1 % (3-13); RED BLOOD COUNT 4.33 10^6/uL (3.72-5.28); RED CELL DISTRIBUTION WIDTH 15.5 % (11.5-14.0); SEGMENTED NEUTROPHILS % (AUTO) 85.4 % (42-78); WHITE BLOOD COUNT 12.8 10^3/uL (4.0-10.5)
[2017-02-26 06:30] LABS: ANION GAP 12 (5-19); BLOOD UREA NITROGEN 16 mg/dL (7-20); CARBON DIOXIDE 36 mmol/L (22-30); CHLORIDE 96 mmol/L (98-107); CREATININE RESULT 0.65 mg/dL (0.52-1.25); GLUCOSE 199 mg/dL (75-110); SODIUM 143.8 mmol/L (137-145)
[2017-02-26 06:31] LABS: POTASSIUM 4.2 mmol/L (3.6-5.0)
--- NOTE | 2017-02-26 09:06 | PDOC PROGRESS REPORT ---
Subjective Progress Note for:: 02/26/17 - acute/chronic resp failure Subjective:: resting comfortably Physical Exam Vital Signs: Temp Pulse Resp BP Pulse Ox 98.0 F 109 H 22 H 115/72 98 02/26/17 07:34 02/26/17 07:34 02/26/17 07:34 02/26/17 07:34 02/26/17 07:34 Pulse Oximeter Continuous Start: 02/23/17 10: 33 Freq: RTQ4 Status: Active Document 02/26/17 03:50 EAL (Rec: 02/26/17 04:28 EAL [email or web address]) Pulse Oximetry Assessment Oxygen Saturation (92-100) 95 Oxygen Flow Rate (L/min) 4 Oxygen Delivery Method Nasal Cannula Equipment Usage Equipment in Use Continuous SpO2 Machine # 6 Intake & Output 02/25/17 02/26/17 02/27/17 06:59 06:59 06:59 Intake Total 1806 1626 Output Total 1000 Balance 1806 626 Weight 76.5 kg 73.8 kg General appearance: PRESENT: no acute distress, disheveled, obese, well- developed Head exam: PRESENT: atraumatic, normocephalic Eye exam: PRESENT: conjunctiva pale Mouth exam: PRESENT: dry mucosa, neck supple, tongue midline Neck exam: ABSENT: carotid bruit, JVD, lymphadenopathy, thyromegaly Respiratory exam: PRESENT: decreased breath sounds, prolonged expiratory phas, rhonchi, symmetrical, unlabored, wheezes. ABSENT: accessory muscle use, chest wall tenderness, clear to auscultation camelia, crackles, rales, retraction, stridor , tachypnea Cardiovascular exam: PRESENT: irregular rhythm, RRR, +S1, +S2, systolic murmur, tachycardia Pulses: PRESENT: normal radial pulses GI/Abdominal exam: PRESENT: normal bowel sounds, soft. ABSENT: distended, guarding, mass, organolmegaly, rebound, tenderness Extremities exam: ABSENT: calf tenderness, clubbing, joint swelling, pedal edema , tenderness Musculoskeletal exam: ABSENT: deformity, dislocation, tenderness Neurological exam: ABSENT: altered Skin exam: ABSENT: dry, warm Results Laboratory Results: 02/26/17 04:59 02/26/17 04:59 02/25/17 02/26/17 02/26/17 19:30 04:59 04:59 WBC 12.8 H RBC 4.33 Hgb 12.4 Hct 37.7 MCV 87 MCH 28.7 MCHC 33.0 RDW 15.5 H Plt Count 256 Seg Neutrophils % 85.4 H Lymphocytes % 7.5 L Monocytes % 7.1 Eosinophils % 0.0 Basophils % 0.0 Absolute Neutrophils 10.9 H Absolute Lymphocytes 1.0 Absolute Monocytes 0.9 Absolute Eosinophils 0.0 Absolute Basophils 0.0 Sodium 143.8 Potassium 4.2 Chloride 96 L Carbon Dioxide 36 H Anion Gap 12 BUN 16 Creatinine 0.68 0.65 Est GFR ( Amer) > 60 > 60 Est GFR (Non-Af Amer) > 60 > 60 Glucose 199 H Calcium 9.0 02/22/17 19:57 Troponin I 0.021 Impressions: Chest X-Ray 02/22/17 13:24 IMPRESSION: Chronic lung changes with no acute cardiopulmonary disease. Assessment & Plan - Diagnosis (1) Acute on chronic respiratory failure with hypoxemia Is this a current diagnosis for this admission?: No (2) COPD exacerbation Is this a current diagnosis for this admission?: Yes Plan: improved Continue current therapy Generic Name Dose Route Start Last Admin Trade Name Freq PRN Reason Stop Dose Admin Levalbuterol HCl 0.63 mg 02/22/17 15:10 02/23/17 07:50 Xopenex Neb 0.63 Mg/3 Ml Ampul NEB 03/24/17 15:09 0.63 mg RTQ4HP PRN FOR WHEEZING Guaifenesin 600 mg 02/23/17 06:00 02/23/17 07:51 Mucinex Sr 600 Mg Tablet.Sa PO 03/25/17 05:59 600 mg Q12A MAEGAN Patient Own Medication 1 puff 02/22/17 15:30 Fluticasone/Vilanterol [Breo Ellipta 100-25 Mcg Inh] IH 03/24/17 15:29 .Q12 MAEGAN Methylprednisolone Sodium Succinate 40 mg 02/22/17 22:00 02/23/17 06:05 Solu-Medrol Inj/Pf 40 Mg/1 Ml Sdv IV 03/24/17 21:59 40 mg Q8 MAEGAN Tiotropium [place] 1 cap 02/23/17 10:00 Spiriva Handihaler 5 Cap/Kit (18 Mcg/Cap) IH 03/25/17 09:59 DAILY MAEGAN Roflumilast 500 mcg 02/23/17 10:00 Daliresp 500 Mcg Tablet PO 03/25/17 09:59 DAILY MAEGAN (3) GERD (gastroesophageal reflux disease) Qualifiers: Esophagitis presence: esophagitis presence not specified Qualified Code(s) : K21.9 - Gastro-esophageal reflux disease without esophagitis Is this a current diagnosis for this admission?: Yes Plan: stable continue PPI (4) UTI (urinary tract infection) Qualifiers: Urinary tract infection type: acute cystitis Is this a current diagnosis for this admission?: No
[2017-02-26] MEDS: DIVALPROEX SODIUM 250 MG TABLET.DR PO SCH (09:09)
[2017-02-26] MEDS: LANSOPRAZOLE 15 MG TAB.RAP.DR PO SCH (09:09)
[2017-02-26] MEDS: CLONIDINE HCL 0.1 MG TABLET PO SCH (09:10)
[2017-02-26] MEDS: ROFLUMILAST 500 MCG TABLET PO SCH (09:10)
[2017-02-26] MEDS: TIOTROPIUM BROMIDE DPI 5 CAP/KIT (18 MCG/CAP) IH SCH (09:10)
[2017-02-26] MEDS: ENOXAPARIN SODIUM INJ 30 MG/0.3 ML DISP.SYRIN SUBCUT SCH (09:10)
[2017-02-26] MEDS: METHYLPREDNISOLONE INJ 40 MG/1 ML SDV IV SCH (09:10)
[2017-02-26 12:42] VITALS: BP 142/76
--- NOTE | 2017-02-26 12:44 | PDOC DISCHARGE SUMMARY ---
General - Admit/Disc Date/PCP Admission Date/Primary Care Provider: 02/22/17 15:11 Criss Tanner [facility] Machinery Mechanic: Dr. Childers Discharge Date: 02/26/17 - Additional Information Resuscitation Status: Full Code Discharge Diet: As Tolerated Discharge Activity: Activity As Tolerated, Balance Activity w/Rest, Supervised Activity Home Medications: Alprazolam [Xanax 0.25 mg Tablet] 0.25 mg PO Q12 02/22/17 Dexlansoprazole [Dexilant 30 mg Capsule] 30 mg PO DAILY 02/22/17 Furosemide [Lasix 20 mg Tablet] 10 mg PO DAILY 02/22/17 Haloperidol [Haldol 5 mg Tablet] 5 mg PO QHS 02/22/17 Venlafaxine HCl ER [Effexor Xr 75 mg Cap.sr] 150 mg PO DAILY 02/22/17 Amox Tr/Potassium Clavulanate [Augmentin "500" Tablet] 1 tab PO Q8 #21 tablet 02/26/17 Clonidine HCl [Catapres 0.1 mg Tablet] 0.1 mg PO Q12 tablet 02/26/17 Fluticasone/Vilanterol [Breo Ellipta 100-25 Mcg INH] 1 puff IH .Q12 02/26/17 Guaifenesin [Mucinex Sr 600 mg Tablet.sa] 600 mg PO Q12A #60 tablet.sa 02/26/17 Montelukast Sodium [Singulair 10 mg Tablet] 10 mg PO QPM tablet 02/26/17 Prednisone See Protocol PO DAILY #39 tablet 02/26/17 Tiotropium [place] [Spiriva Handihaler 5 Cap/Kit (18 Mcg/Cap)] 1 cap IH DAILY kit 02/26/17 History of Present Illness History of Present Illness: SERGEY RIVERA is a 86 year old female came to the emergency room with increased shortness of breath fatigue weakness difficulty catching her breath. Patient has past medical history of COPD with multiple hospitalizations with exacerbation, CHF with multiple hospitalizations for exacerbations, pneumonia, weakness fatigue, anxiety. Past medical history include respiratory tract infection chronic, GERD arthritis, depression, anemia, patient is a former smoker, denies any current smoking or alcohol use. Hospital Course Hospital Course: The patient was treated for underlying pneumonia and COPD during this hospitalization. Fortunately her respiratory status is not significantly improved. She is intermittently requiring BiPAP. Patient also became quite depressed and cut her arm with a butter knife in an apparent attempt to kill herself. The patient was seen by palliative care while here in the hospital. Discussions were had with the family and they all realized that she is reaching the end of her life. Her respiratory status really continues to decline and at this point the family and the patient have opted to go home with home hospice services. The discharge planners are setting this up and she will be discharged home today in poor but stable condition. Of note on the day of discharge the patient did have some urinary retention and required an in and out catheterization. I did speak to the patient's daughter who wants to hold off on having a Garcia catheter placed at this time. She feels that if we get the patient up to a bedside commode at home that she will be able to void. I have encouraged her to keep a close eye on this and to let the hospice nurses know if she is having any difficulty. Physical Exam Vital Signs: Temp Pulse Resp BP Pulse Ox 97.8 F 108 H 18 105/61 98 02/26/17 11:32 02/26/17 11:32 02/26/17 11:32 02/26/17 11:32 02/26/17 11:32 Pulse Oximeter Continuous Start: 02/23/17 10: 33 Freq: RTQ4 Status: Active Document 02/26/17 08:00 [facility] (Rec: 02/26/17 08:31 [facility] [email or web address]) Pulse Oximetry Assessment Oxygen Saturation (92-100) 97 Oxygen Flow Rate (L/min) 4 Oxygen Delivery Method Nasal Cannula Equipment Usage Equipment in Use Continuous SpO2 Machine # 6 Intake & Output 02/25/17 02/26/17 02/27/17 06:59 06:59 06:59 Intake Total 1806 1626 200 Output Total 1000 Balance 1806 626 200 Weight 76.5 kg 73.8 kg General appearance: PRESENT: no acute distress, thin Head exam: PRESENT: atraumatic, normocephalic Eye exam: PRESENT: conjunctiva pink, EOMI, PERRLA. ABSENT: scleral icterus Mouth exam: PRESENT: moist, tongue midline Respiratory exam: PRESENT: decreased breath sounds, prolonged expiratory phas, other - The patient is significantly diminished throughout all lung self. No wheezing noted.. ABSENT: accessory muscle use, chest wall tenderness Cardiovascular exam: PRESENT: RRR. ABSENT: diastolic murmur, rubs, systolic murmur GI/Abdominal exam: PRESENT: normal bowel sounds, soft. ABSENT: distended, guarding, mass, organolmegaly, rebound, tenderness Rectal exam: PRESENT: deferred Extremities exam: PRESENT: full ROM. ABSENT: calf tenderness, clubbing, pedal edema Neurological exam: PRESENT: alert, awake, oriented to person, oriented to place , oriented to time, oriented to situation, CN II-XII grossly intact. ABSENT: motor sensory deficit Psychiatric exam: PRESENT: appropriate affect, normal mood. ABSENT: homicidal ideation, suicidal ideation Skin exam: PRESENT: dry, intact, warm. ABSENT: cyanosis, rash Results Laboratory Results: 02/26/17 04:59 02/26/17 04:59 02/25/17 02/26/17 02/26/17 19:30 04:59 04:59 WBC 12.8 H RBC 4.33 Hgb 12.4 Hct 37.7 MCV 87 MCH 28.7 MCHC 33.0 RDW 15.5 H Plt Count 256 Seg Neutrophils % 85.4 H Lymphocytes % 7.5 L Monocytes % 7.1 Eosinophils % 0.0 Basophils % 0.0 Absolute Neutrophils 10.9 H Absolute Lymphocytes 1.0 Absolute Monocytes 0.9 Absolute Eosinophils 0.0 Absolute Basophils 0.0 Sodium 143.8 Potassium 4.2 Chloride 96 L Carbon Dioxide 36 H Anion Gap 12 BUN 16 Creatinine 0.68 0.65 Est GFR ( Amer) > 60 > 60 Est GFR (Non-Af Amer) > 60 > 60 Glucose 199 H Calcium 9.0 02/22/17 19:57 Troponin I 0.021 Impressions: Chest X-Ray 02/22/17 13:24 IMPRESSION: Chronic lung changes with no acute cardiopulmonary disease. Qualifiers PATEINT BEING DISCHARGED WITH ANY OF THE FOLLOWING DIAGNOSIS?: No Plan Discharge Plan: Patient will be discharged home today with home hospice services Time Spent: Greater than 30 Minutes
== END 2017-02-26 13:06 | disposition hospice, home (50) | DRG 177 ==
LOC: ER 13:01 → EH 15:11 → UNDOADMIN 15:38 → EH 15:38 → 3W 02-23 03:00
PROVIDERS: ADMIT Internal Medicine; ATTEND Internal Medicine
DX: J15.1 Pneumonia due to Pseudomonas (principal); J96.21 Acute and chronic respiratory failure with hypoxia; J44.1 Chronic obstructive pulmonary disease with (acute) exacerbation; N39.0 Urinary tract infection, site not specified; F33.2 Major depressive disorder, recurrent severe without psychotic features; R45.851 Suicidal ideations; Z66 Do not resuscitate; I50.9 Heart failure, unspecified; M19.90 Unspecified osteoarthritis, unspecified site; K21.9 Gastro-esophageal reflux disease without esophagitis; G31.9 Degenerative disease of nervous system, unspecified; D72.829 Elevated white blood cell count, unspecified; S61.412A Laceration without foreign body of left hand, initial encounter; X78.1XXA Intentional self-harm by knife, initial encounter; Y92.230 Patient room in hospital as the place of occurrence of the external cause; Z99.81 Dependence on supplemental oxygen; Z79.51 Long term (current) use of inhaled steroids; Z79.899 Other long term (current) drug therapy; Z87.891 Personal history of nicotine dependence
CPT/HCPCS: 36415; 36600; 71010; 80048; 80053; 80170; 81001; 82550; 82553; 82565; 82803; 83036; 83880; 84484; 85025; 85027; 87040; 87086; 93005; 93010; 94640; 94660; 94762; 96374; 99285; G8978-GP; G8979-GP; J0692; J1580; J1650; J2060; J2920; J2930; J3490; J7614; J7620; S0028